=== PATIENT | male | born 1960 | race Caucasian/White ===

== ENCOUNTER 2021-06-29 11:03 | Outpatient (REF) | payer OTHER, SELFPAY ==
[2021-06-29 11:08] LABS: MANUAL DIFF FLAG NO
[2021-06-29 11:20] LABS: Basophils Absolute Auto 0.1 X10*3/uL (0.0-0.2); Basophils Percent Auto 0.9 % (0-2); Eosinophils Absolute Auto 0.2 X10*3/uL (0.0-0.4); Eosinophils Percent Auto 2.9 % (0-4); Hemoglobin 14.7 g/dl (14.0-18.0); Imm Gran Abs Auto 0.02 X10*3/uL (0.00-0.03); Imm Gran Pct Auto 0.3 % (0.0-0.4); Lymphocytes Absolute Auto 2.3 X10*3/uL (1.2-4.9); Mean Corpuscular HGB Conc 33.4 g/dl (31.0-36.0); Mean Corpuscular Hemoglobin 30.6 pg (27.0-33.0); Mean Corpuscular Volume 91.5 fL (80.0-98.0); Mean Platelet Volume 9.3 fL (9.4-12.4); Monocytes Absolute Auto 0.7 X10*3/uL (0.1-1.2); Monocytes Percent Auto 9.4 % (2-11); Neutrophils Absolute Auto 3.7 x10*3/uL (2.0-8.3); Neutrophils Percent Auto 53.5 % (45-73); Platelet Count 266 X10*3/uL (160-400); Red Blood Count 4.81 X10*6/uL (4.60-5.80); Red Cell Distribution Width 12.6 % (11.0-16.0); White Blood Count 6.9 X10*3/uL (4.8-10.8)
[2021-06-29 11:24] LABS: Appearance Urine HAZY; Color Urine YELLOW; Glucose Urine UA NEG (NEG); Leukocyte Esterase Urine NEG (NEG); Nitrite Urine NEG (NEG); Specific Gravity - Urine 1.025 (1.005-1.025); Urine Blood NEG (NEG); Urine Ketones NEG (NEG); Urine Protein NEG (NEG-TRACE)
[2021-06-29 11:44] LABS: Alanine Aminotransferase 14 U/L (0-40); Albumin Level 4.1 g/dL (3.5-5.0); Alkaline Phosphatase 68 U/L (39-117); Anion Gap 9 (12-20); Aspartate Amino Transferase 15 U/L (5-37); Bilirubin Total 0.9 mg/dL (0.0-1.0); Blood Urea Nitrogen 19 mg/dL (9-16); Calcium 9.2 mg/dL (8.4-10.2); Carbon Dioxide 31 mmol/L (22-29); Chloride 103 mmol/L (96-108); Cholesterol 248 mg/dL; Estimated Glomerular Filt Rate > 60; Glucose Fasting 98 mg/dL (60-99); HDL Cholesterol 55 mg/dL; LDL Cholesterol Calculated 175 mg/dl; Potassium 3.9 mmol/L (3.3-5.1); Sodium 139 mmol/L (135-145); Total Protein 6.8 g/dL (6.5-8.0); Triglycerides 91 mg/dL
[2021-06-29 11:59] LABS: PSA,Total (Free>4and<10) 2.94 ng/mL (0.00-4.00)
== END 2021-06-29 11:04 | disposition home or self-care (01) ==
LOC: HO.LNP 11:03
PROVIDERS: PCP Internal Medicine; Visit Provider Internal Medicine
DX: Z00.00 Encounter for general adult medical examination without abnormal findings (principal); Z12.5 Encounter for screening for malignant neoplasm of prostate
CPT/HCPCS: 80053; 80061; 81003; 84153; 85025

== ENCOUNTER 2021-12-25 11:03 | Outpatient (REF) | payer OTHER, SELFPAY ==
[2021-12-25 12:01] LABS: PSA,Total (Free>4and<10) 1.73 ng/mL (0.00-4.00)
== END 2021-12-25 11:04 | disposition home or self-care (01) ==
LOC: HO.LNP 11:03
PROVIDERS: Visit Provider Internal Medicine
DX: Z12.5 Encounter for screening for malignant neoplasm of prostate (principal); N40.0 Benign prostatic hyperplasia without lower urinary tract symptoms
CPT/HCPCS: 84153

== ENCOUNTER 2022-05-21 10:33 | Outpatient (REF) | payer OTHER, SELFPAY ==
[2022-05-21 10:38] LABS: MANUAL DIFF FLAG NO
[2022-05-21 10:46] LABS: Basophils Percent Auto 0.7 % (0-2); Eosinophils Absolute Auto 0.2 X10*3/uL (0.0-0.4); Eosinophils Percent Auto 3.7 % (0-4); Hematocrit 42.4 % (42.0-52.0); Hemoglobin 14.1 g/dl (14.0-18.0); Imm Gran Abs Auto 0.01 X10*3/uL (0.00-0.03); Imm Gran Pct Auto 0.2 % (0.0-0.4); Lymphocytes Absolute Auto 1.8 X10*3/uL (1.2-4.9); Lymphocytes Percent Auto 30.2 % (20-40); Mean Corpuscular HGB Conc 33.3 g/dl (31.0-36.0); Mean Corpuscular Hemoglobin 30.1 pg (27.0-33.0); Mean Corpuscular Volume 90.6 fL (80.0-98.0); Mean Platelet Volume 9.1 fL (9.4-12.4); Monocytes Absolute Auto 0.7 X10*3/uL (0.1-1.2); Monocytes Percent Auto 11.1 % (2-11); Neutrophils Absolute Auto 3.2 x10*3/uL (2.0-8.3); Neutrophils Percent Auto 54.1 % (45-73); Platelet Count 237 X10*3/uL (160-400); Red Blood Count 4.68 X10*6/uL (4.60-5.80); Red Cell Distribution Width 12.6 % (11.0-16.0)
[2022-05-21 10:51] LABS: Appearance Urine Clear; Color Urine Yellow; Glucose Urine UA Negative (Negative); Leukocyte Esterase Urine Trace (Negative); Nitrite Urine Negative (Negative); UMIC TRIGGER UA YES; Urine Blood Negative (Negative); Urine Ketones Negative (Negative); Urine Protein Negative (Neg-Trace)
[2022-05-21 10:56] LABS: Bacteria Urine None Seen (None Seen); Hyaline Casts Urine 0-2 /LPF (0-2); RBC Urine 0-2 /HPF (0-2); Squamous Epithelial Cell Urine 0-2 /HPF (0-2); WBC Urine 0-5 /HPF (0-5)
[2022-05-21 11:14] LABS: Alanine Aminotransferase 16 U/L (0-40); Albumin Level 4.2 g/dL (3.5-5.0); Alkaline Phosphatase 66 U/L (39-117); Anion Gap 10 (12-20); Aspartate Amino Transferase 19 U/L (5-37); Bilirubin Total 0.8 mg/dL (0.0-1.0); Blood Urea Nitrogen 14 mg/dL (9-16); Carbon Dioxide 28 mmol/L (22-29); Chloride 106 mmol/L (96-108); Cholesterol 244 mg/dL; Estimated Glomerular Filt Rate > 60; Glucose Fasting 83 mg/dL (60-99); HDL Cholesterol 62 mg/dL; LDL Cholesterol Calculated 170 mg/dl; Potassium 4.3 mmol/L (3.3-5.1); Sodium 140 mmol/L (135-145); Total Protein 6.8 g/dL (6.5-8.0); Triglycerides 63 mg/dL
[2022-05-21 15:22] LABS: PSA,Total (Free>4and<10) 2.59 ng/mL (0.00-4.00)
== END 2022-05-21 10:34 | disposition home or self-care (01) ==
LOC: HO.LNP 10:33
PROVIDERS: Visit Provider Internal Medicine
DX: Z00.00 Encounter for general adult medical examination without abnormal findings (principal); N40.0 Benign prostatic hyperplasia without lower urinary tract symptoms; E78.00 Pure hypercholesterolemia, unspecified; Z12.5 Encounter for screening for malignant neoplasm of prostate
CPT/HCPCS: 80053; 80061; 81001; 84153; 85025

== ENCOUNTER 2023-06-09 11:00 | Outpatient (REF) | payer OTHER, SELFPAY ==
[2023-06-09 11:02] LABS: MANUAL DIFF FLAG NO
[2023-06-09 11:21] LABS: Basophils Percent Auto 0.7 % (0-2); Eosinophils Absolute Auto 0.2 X10*3/uL (0.0-0.4); Eosinophils Percent Auto 3.9 % (0-4); Hematocrit 41.8 % (42.0-52.0); Hemoglobin 14.1 g/dl (14.0-18.0); Imm Gran Abs Auto 0.01 X10*3/uL (0.00-0.03); Imm Gran Pct Auto 0.2 % (0.0-0.4); Lymphocytes Absolute Auto 1.7 X10*3/uL (1.2-4.9); Lymphocytes Percent Auto 29.2 % (20-40); Mean Corpuscular HGB Conc 33.7 g/dl (31.0-36.0); Mean Corpuscular Hemoglobin 30.1 pg (27.0-33.0); Mean Corpuscular Volume 89.3 fL (80.0-98.0); Monocytes Absolute Auto 0.7 X10*3/uL (0.1-1.2); Monocytes Percent Auto 11.8 % (2-11); Neutrophils Absolute Auto 3.2 x10*3/uL (2.0-8.3); Neutrophils Percent Auto 54.2 % (45-73); Platelet Count 266 X10*3/uL (160-400); Red Blood Count 4.68 X10*6/uL (4.60-5.80); Red Cell Distribution Width 12.6 % (11.0-16.0); White Blood Count 5.9 X10*3/uL (4.8-10.8)
[2023-06-09 11:22] LABS: Appearance Urine Clear; Color Urine Yellow; Glucose Urine UA Negative (Negative); Leukocyte Esterase Urine Negative (Negative); Nitrite Urine Negative (Negative); Urine Blood Negative (Negative); Urine Ketones Negative (Negative); Urine Protein Negative (Neg-Trace)
[2023-06-09 11:27] LABS: Bacteria Urine None Seen (None Seen); Hyaline Casts Urine 0-2 /LPF (0-2); RBC Urine 0-2 /HPF (0-2); Squamous Epithelial Cell Urine 0-2 /HPF (0-2); WBC Urine 0-5 /HPF (0-5)
[2023-06-09 11:37] LABS: Alanine Aminotransferase 15 U/L (0-40); Albumin Level 4.1 g/dL (3.5-5.0); Alkaline Phosphatase 74 U/L (39-117); Anion Gap 11 (12-20); Aspartate Amino Transferase 18 U/L (5-37); Bilirubin Total 0.8 mg/dL (0.0-1.0); Blood Urea Nitrogen 13 mg/dL (9-16); Calcium 9.6 mg/dL (8.4-10.2); Carbon Dioxide 30 mmol/L (22-29); Chloride 104 mmol/L (96-108); Cholesterol 248 mg/dL (<200); Estimated Glomerular Filt Rate > 60; Glucose Random 90 mg/dL (60-115); HDL Cholesterol 57 mg/dL (>40); LDL Cholesterol Calculated 175 mg/dL (<100); Potassium 3.9 mmol/L (3.3-5.1); Sodium 141 mmol/L (135-145); Total Protein 7.1 g/dL (6.5-8.0); Triglycerides 82 mg/dL (<150)
[2023-06-09 11:54] LABS: PSA,Total (Free>4and<10) 2.33 ng/mL (0.00-4.00)
== END 2023-06-09 11:01 | disposition home or self-care (01) ==
LOC: HO.LNP 11:00
PROVIDERS: Visit Provider Internal Medicine
DX: Z00.00 Encounter for general adult medical examination without abnormal findings (principal); Z12.5 Encounter for screening for malignant neoplasm of prostate; N40.0 Benign prostatic hyperplasia without lower urinary tract symptoms; E78.00 Pure hypercholesterolemia, unspecified
CPT/HCPCS: 80053; 80061; 81001; 84153; 85025

== ENCOUNTER 2023-09-15 11:57 | Outpatient (REF) | payer OTHER, SELFPAY ==
[2023-09-15 12:29] LABS: Alanine Aminotransferase 13 U/L (0-40); Albumin Level 3.8 g/dL (3.5-5.0); Alkaline Phosphatase 76 U/L (39-117); Aspartate Amino Transferase 15 U/L (5-37); Bilirubin Direct 0.2 mg/dL (0.0-0.5); Bilirubin Total 0.5 mg/dL (0.0-1.0); Cholesterol 154 mg/dL (<200); HDL Cholesterol 42 mg/dL (>40); LDL Cholesterol Calculated 100 mg/dL (<100); Total Protein 7.1 g/dL (6.5-8.0); Triglycerides 62 mg/dL (<150)
== END 2023-09-15 11:58 | disposition home or self-care (01) ==
LOC: HO.LNP 11:57
PROVIDERS: Visit Provider Internal Medicine
DX: E78.00 Pure hypercholesterolemia, unspecified (principal)
CPT/HCPCS: 80061; 80076

== ENCOUNTER 2023-09-21 11:43 | Outpatient (AMB) | payer OTHER, SELFPAY ==
--- NOTE | 2023-09-21 11:41 | MHC.OFFWIV ---
Intake Vital Signs 09/21/23 11:47 Height 6 ft 2 in Weight 214 lb BMI 27.5 BP 140/70 H Blood Pressure Location Lt brachial Position Sitting Pulse 86 Pulse Source Pulse Oximeter Temp 97.9 F Temp Source Temporal Artery Scan Pulse Oximetry (%) 96 Oxygen Delivery Method Room Air Intake Visit Reasons: EP tick bite Intake Note: pt is here today for tick bite started 07/26 Patient Tobacco Use Status: Never used Tobacco Allergies No Known Allergies Allergy (Verified 09/21/23 11:50) Medication List - Last Reconciled 09/21/23 by Magda Jackson MD atorvastatin 20 mg PO DAILY Do you need a note to return to daycare/school/sports/work: Yes HPI EP tick bite HPI Details Patient is a 63-year-old gentleman who is very active goes for hiking and biking Found a tick on his body 3.5 week ago, right side in the back, patient was able to remove it Ten days ago he started having swelling and aching in his left knee which usually have achy feeling because of osteoarthritis Then pain migrated to right ankle and then left hand Patient got concerned for Lyme disease so came in Currently he is having discomfort left hand small joints I have ordered Lyme test metabolic profile and CBC with the patient I have also sent doxycycline 100 mg b.i.d. for 10 days Further treatment after the reports [facility] Social History Patient Tobacco Use Status: Never used Tobacco Review of Systems Const Denies chills and Denies fever(s) ENT Denies epistaxis and Denies nasal discharge Card Denies chest pain Resp Denies chest congestion, Denies cough and Denies hemoptysis GI Denies diarrhea and Denies nausea Skin/Breast Denies rash Neuro Reports no additional complaints Psych Reports no additional complaints Endo Reports no additional complaints Physical Exam Vital Signs: Last Vital Signs Temp 97.9 F 09/21/23 11:47 Pulse 86 09/21/23 11:47 BP 140/70 H 09/21/23 11:47 Pulse Ox 96 09/21/23 11:47 Oxygen Delivery Method Room Air 09/21/23 11:47 BMI result Body Mass Index 27.5 Const General: cooperative, comfortable and no acute distress Orientation/consciousness: patient oriented x3 HEENT Head: Yes normocephalic Eyes General: appearance normal, both eyes and all related structures Neck Other: Supple Neck: Yes supple Resp Effort & Inspection: normal respiratory effort, no cough and no stridor Cardio Heart sounds: S1 normal heart sound present and S2 normal heart sound present Skin General skin exam: turgor normal Neuro Other: Motor sensory intact General: patient oriented x3, tone normal and moves all extremities Extrem Other: Left knee swollen compared to right knee, mild swelling left wrist area, range of motion slightly limited because of soreness Psych Other: Normal effect, speech clear Assessment & Plan Assessment & Plan (1) Tick bite: Code(s): W57.XXXA - Bitten or stung by nonvenomous insect and other nonvenomous arthropods, initial encounter Qualifiers: Encounter type: initial encounter Site of tick bite: abdominal wall Qualified Code(s): S30.861A - Insect bite (nonvenomous) of abdominal wall, initial encounter; W57.XXXA - Bitten or stung by nonvenomous insect and other nonvenomous arthropods, initial encounter (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 - Other specified arthritis, unspecified site (3) Swelling of knee joint, left: Code(s): M25.462 - Effusion, left knee (4) Hand pain, left: Code(s): M79.642 - Pain in left hand Plan Patient is a 63-year-old gentleman who is very active goes for hiking and biking Found a tick on his body 3.5 week ago, right side in the back, patient was able to remove it Ten days ago he started having swelling and aching in his left knee which usually have achy feeling because of osteoarthritis Then pain migrated to right ankle and then left hand Patient got concerned for Lyme disease so came in Currently he is having discomfort left hand small joints I have ordered Lyme test metabolic profile and CBC with the patient I have also sent doxycycline 100 mg b.i.d. for 10 days Further treatment after the reports Orders: Orders Complete Blood Count Auto Diff Today W57.XXXA - Bitten or stung by nonvenomous insect and other nonvenomous arthropods, initial encounter Comprehensive Met. 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
[2023-09-21 11:47] VITALS: BP 140/70; PULSE 86; TEMP 36.6; O2SAT 96; BMI 27.5
== END 2023-09-21 12:17 | disposition home or self-care (01) ==
PROVIDERS: PCP Internal Medicine; Visit Provider Internal Medicine
DX: S30.861A Insect bite (nonvenomous) of abdominal wall, initial encounter (principal); W57.XXXA Bitten or stung by nonvenomous insect and other nonvenomous arthropods, initial encounter; M13.80 Other specified arthritis, unspecified site; M25.462 Effusion, left knee; M79.642 Pain in left hand
CPT/HCPCS: 99214

== ENCOUNTER 2023-09-21 11:58 | Outpatient (REF) | payer OTHER, SELFPAY ==
[2023-09-21 13:03] LABS: MANUAL DIFF FLAG NO
[2023-09-21 13:08] LABS: Basophils Percent Auto 0.4 % (0-2); Eosinophils Absolute Auto 0.2 X10*3/uL (0.0-0.4); Eosinophils Percent Auto 1.6 % (0-4); Hematocrit 34.4 % (42.0-52.0); Hemoglobin 11.6 g/dl (14.0-18.0); Imm Gran Abs Auto 0.04 X10*3/uL (0.00-0.03); Imm Gran Pct Auto 0.4 % (0.0-0.4); Lymphocytes Absolute Auto 0.8 X10*3/uL (1.2-4.9); Lymphocytes Percent Auto 7.7 % (20-40); Mean Corpuscular HGB Conc 33.7 g/dl (31.0-36.0); Mean Corpuscular Hemoglobin 29.8 pg (27.0-33.0); Mean Corpuscular Volume 88.4 fL (80.0-98.0); Mean Platelet Volume 8.8 fL (9.4-12.4); Monocytes Absolute Auto 0.9 X10*3/uL (0.1-1.2); Monocytes Percent Auto 7.8 % (2-11); Neutrophils Percent Auto 82.1 % (45-73); Platelet Count 356 X10*3/uL (160-400); Red Blood Count 3.89 X10*6/uL (4.60-5.80); Red Cell Distribution Width 11.9 % (11.0-16.0)
[2023-09-21 13:22] LABS: Alanine Aminotransferase 28 U/L (0-40); Albumin Level 3.5 g/dL (3.5-5.0); Alkaline Phosphatase 90 U/L (39-117); Anion Gap 14 (12-20); Aspartate Amino Transferase 29 U/L (5-37); Bilirubin Total 0.7 mg/dL (0.0-1.0); Blood Urea Nitrogen 12 mg/dL (9-16); Calcium 9.1 mg/dL (8.4-10.2); Carbon Dioxide 23 mmol/L (22-29); Chloride 103 mmol/L (96-108); Estimated Glomerular Filt Rate > 60; Glucose Random 161 mg/dL (60-115); Potassium 3.6 mmol/L (3.3-5.1); Sodium 136 mmol/L (135-145); Total Protein 7.1 g/dL (6.5-8.0)
[2023-09-22 10:18] LABS: Lyme Abs Screen <0.90 index
== END 2023-09-21 11:59 | disposition home or self-care (01) ==
LOC: HO.HMGCLDS 11:58
PROVIDERS: PCP Internal Medicine; Visit Provider Internal Medicine
DX: T14.8XXA Other injury of unspecified body region, initial encounter (principal); W57.XXXA Bitten or stung by nonvenomous insect and other nonvenomous arthropods, initial encounter
CPT/HCPCS: 36415; 80053; 85025; 86617; 86618

== ENCOUNTER 2023-09-23 10:55 | Outpatient (REF) | payer OTHER, SELFPAY ==
[2023-09-23 11:02] LABS: MANUAL DIFF FLAG NO
[2023-09-23 11:11] LABS: Basophils Absolute Auto 0.1 X10*3/uL (0.0-0.2); Basophils Percent Auto 0.8 % (0-2); Eosinophils Absolute Auto 0.4 X10*3/uL (0.0-0.4); Eosinophils Percent Auto 3.8 % (0-4); Hematocrit 35.7 % (42.0-52.0); Hemoglobin 11.7 g/dl (14.0-18.0); Imm Gran Abs Auto 0.03 X10*3/uL (0.00-0.03); Imm Gran Pct Auto 0.3 % (0.0-0.4); Lymphocytes Absolute Auto 1.6 X10*3/uL (1.2-4.9); Lymphocytes Percent Auto 16.9 % (20-40); Mean Corpuscular HGB Conc 32.8 g/dl (31.0-36.0); Mean Corpuscular Hemoglobin 29.5 pg (27.0-33.0); Mean Corpuscular Volume 90.2 fL (80.0-98.0); Mean Platelet Volume 8.7 fL (9.4-12.4); Monocytes Absolute Auto 0.9 X10*3/uL (0.1-1.2); Monocytes Percent Auto 9.7 % (2-11); Neutrophils Absolute Auto 6.3 x10*3/uL (2.0-8.3); Neutrophils Percent Auto 68.5 % (45-73); Platelet Count 378 X10*3/uL (160-400); Red Blood Count 3.96 X10*6/uL (4.60-5.80); Red Cell Distribution Width 11.9 % (11.0-16.0); White Blood Count 9.2 X10*3/uL (4.8-10.8)
[2023-09-26 12:08] LABS: A. Phagocytphilium DNA,RT-PCR NOT DETECTED (NOT DETECTED); Babesia Microti DNA, RT-PCR NOT DETECTED (NOT DETECTED); Borrelia Miyamotoi,DNA RT-PCR NOT DETECTED (NOT DETECTED); E.Chaffeensis DNA RT-PCR NOT DETECTED (NOT DETECTED); Lyme(Borrelia ssp)DNA RT-PCR NOT DETECTED (NOT DETECTED)
== END 2023-09-23 10:56 | disposition home or self-care (01) ==
LOC: HO.LNP 10:55
PROVIDERS: Visit Provider Internal Medicine
DX: A69.20 Lyme disease, unspecified (principal)
CPT/HCPCS: 85025; 87468; 87469; 87478; 87484; 87798

== ENCOUNTER 2023-09-29 11:30 | Outpatient (REF) | payer OTHER, SELFPAY ==
[2023-09-29 11:33] LABS: MANUAL DIFF FLAG NO
[2023-09-29 12:28] LABS: Basophils Absolute Auto 0.1 X10*3/uL (0.0-0.2); Basophils Percent Auto 0.8 % (0-2); Eosinophils Absolute Auto 0.3 X10*3/uL (0.0-0.4); Eosinophils Percent Auto 3.7 % (0-4); Hemoglobin 11.3 g/dl (14.0-18.0); Imm Gran Abs Auto 0.04 X10*3/uL (0.00-0.03); Imm Gran Pct Auto 0.5 % (0.0-0.4); Lymphocytes Absolute Auto 1.6 X10*3/uL (1.2-4.9); Lymphocytes Percent Auto 20.7 % (20-40); Mean Corpuscular HGB Conc 33.2 g/dl (31.0-36.0); Mean Corpuscular Hemoglobin 29.7 pg (27.0-33.0); Mean Corpuscular Volume 89.2 fL (80.0-98.0); Mean Platelet Volume 8.8 fL (9.4-12.4); Monocytes Absolute Auto 0.6 X10*3/uL (0.1-1.2); Monocytes Percent Auto 8.2 % (2-11); Neutrophils Percent Auto 66.1 % (45-73); Platelet Count 337 X10*3/uL (160-400); Red Blood Count 3.81 X10*6/uL (4.60-5.80); Red Cell Distribution Width 12.1 % (11.0-16.0); White Blood Count 7.6 X10*3/uL (4.8-10.8)
[2023-09-29 12:42] LABS: Rheumatoid Factor < 13.0 IU/mL (<15.0)
[2023-09-29 13:12] LABS: Erythrocyte Sedimentation Rate 45 MM/HR (0-15)
[2023-10-01 15:49] LABS: A. Phagocytphilium DNA,RT-PCR NOT DETECTED (NOT DETECTED); Babesia Microti DNA, RT-PCR NOT DETECTED (NOT DETECTED); Borrelia Miyamotoi,DNA RT-PCR NOT DETECTED (NOT DETECTED); E.Chaffeensis DNA RT-PCR NOT DETECTED (NOT DETECTED); Lyme(Borrelia ssp)DNA RT-PCR NOT DETECTED (NOT DETECTED)
== END 2023-09-29 11:31 | disposition home or self-care (01) ==
LOC: HO.LNP 11:30
PROVIDERS: Visit Provider Internal Medicine
DX: A69.20 Lyme disease, unspecified (principal); M19.149 Post-traumatic osteoarthritis, unspecified hand
CPT/HCPCS: 85025; 85652; 86431; 87468; 87469; 87478; 87484; 87798

== ENCOUNTER 2023-10-10 10:51 | Outpatient (REF) | payer OTHER, SELFPAY ==
[2023-10-10 12:12] LABS: MANUAL DIFF FLAG NO
[2023-10-10 13:39] LABS: Basophils Absolute Auto 0.1 X10*3/uL (0.0-0.2); Eosinophils Absolute Auto 0.2 X10*3/uL (0.0-0.4); Eosinophils Percent Auto 3.6 % (0-4); Hematocrit 36.6 % (42.0-52.0); Hemoglobin 11.8 g/dl (14.0-18.0); Imm Gran Abs Auto 0.03 X10*3/uL (0.00-0.03); Imm Gran Pct Auto 0.4 % (0.0-0.4); Lymphocytes Absolute Auto 1.2 X10*3/uL (1.2-4.9); Mean Corpuscular HGB Conc 32.2 g/dl (31.0-36.0); Mean Corpuscular Volume 89.9 fL (80.0-98.0); Mean Platelet Volume 8.8 fL (9.4-12.4); Monocytes Absolute Auto 0.6 X10*3/uL (0.1-1.2); Monocytes Percent Auto 9.4 % (2-11); Neutrophils Absolute Auto 4.6 x10*3/uL (2.0-8.3); Neutrophils Percent Auto 67.6 % (45-73); Platelet Count 362 X10*3/uL (160-400); Red Blood Count 4.07 X10*6/uL (4.60-5.80); Red Cell Distribution Width 12.5 % (11.0-16.0); White Blood Count 6.7 X10*3/uL (4.8-10.8)
[2023-10-10 13:39] LABS: Appearance Urine Clear; Color Urine Dark Yellow; Glucose Urine UA Negative (Negative); Leukocyte Esterase Urine Trace (Negative); Nitrite Urine Negative (Negative); PH 5.5 (5.0-9.0); Specific Gravity - Urine 1.025 (1.005-1.025); UMIC TRIGGER UA YES; Urine Blood Moderate (2+) (Negative); Urine Ketones Trace mg/dL (Negative); Urine Protein Trace mg/dL (Neg-Trace)
[2023-10-10 13:49] LABS: Bacteria Urine None Seen (None Seen); Hyaline Casts Urine 0-2 /LPF (0-2); Squamous Epithelial Cell Urine 0-2 /HPF (0-2); WBC Urine 0-5 /HPF (0-5)
[2023-10-10 14:18] LABS: Erythrocyte Sedimentation Rate 40 MM/HR (0-15)
[2023-10-10 14:29] LABS: Alanine Aminotransferase 9 U/L (0-40); Albumin Level 3.7 g/dL (3.5-5.0); Alkaline Phosphatase 73 U/L (39-117); Anion Gap 16 (12-20); Aspartate Amino Transferase 12 U/L (5-37); Bilirubin Total 0.5 mg/dL (0.0-1.0); Blood Urea Nitrogen 17 mg/dL (9-16); Carbon Dioxide 25 mmol/L (22-29); Chloride 105 mmol/L (96-108); Estimated Glomerular Filt Rate > 60; Glucose Random 78 mg/dL (60-115); Potassium 4.2 mmol/L (3.3-5.1); Sodium 142 mmol/L (135-145); Total Protein 7.1 g/dL (6.5-8.0)
[2023-10-10 14:35] LABS: Creatinine Urine 226.81 mg/dL; Protein/Creatinine Ratio, Ur 0.12 (<0.2); Total Protein Urine Random 27 mg/dL (<12)
[2023-10-11 09:41] LABS: HBS Num1 0.69 mIU/mL (0-7.99); HBc Num1 0.24 S/CO (0.00-0.79); HBsAGNum1 0.21 S/CO (0.00-0.99); Hepatitis A Antibody IgM 0.18 Index (0-0.79); Hepatitis B Core Antibody Nonreactive (Nonreactive); Hepatitis B Surface Antigen Negative (Negative); ~HepC Num1 0.22 S/CO (0.00-0.79); ~Hepatitis A Antibody IgM Nonreactive (Nonreactive); ~Hepatitis B Surface Antibody NONREACTIVE (Nonreactive); ~Hepatitis C Antibody Nonreactive (Nonreactive)
[2023-10-11 19:09] LABS: Anti DNA DS Antibody <1 IU/mL; Antibody to SS-A Antigen <1.0 NEG AI (<1.0 NEG); Antibody to SS-B Antigen <1.0 NEG AI (<1.0 NEG); SM/Ribonucleoprotein Ab <1.0 NEG AI (<1.0 NEG); Smith Protein <1.0 NEG AI (<1.0 NEG)
[2023-10-12 08:54] LABS: Complement C3 135 mg/dL (82-185)
[2023-10-12 18:13] LABS: Cyclic Citrullinated Peptide <16 UNITS
[2023-10-12 18:14] LABS: IgA 301 mg/dL (70-320); IgG 1345 mg/dL (600-1540); IgM 119 mg/dL (50-300)
[2023-10-12 21:13] LABS: Prot Elec - Albumin 3.6 g/dL (3.8-4.8); Prot Elec - Alpha1 0.5 g/dL (0.2-0.3); Prot Elec - Alpha2 0.8 g/dL (0.5-0.9); Prot Elec - Beta 1 0.4 g/dL (0.4-0.6); Prot Elec - Beta 2 0.4 g/dL (0.2-0.5); Prot Elec - Gamma 1.2 g/dL (0.8-1.7); Prot Elec - Total Protein 6.9 g/dL (6.1-8.1)
[2023-10-13 08:04] LABS: TS Negative Control Passed; TS Panel A 0; TS Panel B 0; TS Positive Control Passed; TSpotTB Negative (Negative)
[2023-10-13 14:03] LABS: HLA B27 Negative (Negative)
[2023-10-13 16:08] LABS: Anti Nuclear Antibody Screen NEGATIVE (NEGATIVE)
[2023-10-16 11:24] LABS: DNAds, Crithidia Antibody Negative (Negative)
[2023-10-18 22:24] LABS: Angiotensin Converting Enzyme 22 U/L (9-67)
[2023-10-19 14:44] LABS: HLA B51 Comments See Comments; HLA B51 Method PCR SSOP
== END 2023-10-10 10:52 | disposition home or self-care (01) ==
LOC: HO.LAB 10:51
PROVIDERS: PCP Internal Medicine; Visit Provider Student in an Organized Health Care Education/Training Program
DX: Z11.59 Encounter for screening for other viral diseases (principal); Z11.7 Encounter for testing for latent tuberculosis infection; M32.9 Systemic lupus erythematosus, unspecified; M45.9 Ankylosing spondylitis of unspecified sites in spine; M35.2 Behcet's disease; D86.9 Sarcoidosis, unspecified; M13.80 Other specified arthritis, unspecified site; Z72.89 Other problems related to lifestyle
CPT/HCPCS: 36415; 80053; 81001; 81374; 82164; 82570; 82784; 84156; 84165; 85025; 85652; 86038; 86140; 86160; 86200; 86225; 86235; 86255; 86334; 86481; 86704; 86706; 86709; 86803; 86812; 87340

== ENCOUNTER 2023-10-10 10:51 | Outpatient (AMB) | payer OTHER, SELFPAY ==
[2023-10-10 10:56] VITALS: BP 130/64; PULSE 61; O2SAT 97; BMI 26.7
--- NOTE | 2023-10-10 10:56 | A.OFFVIS_ITS ---
Vital Signs 10/10/23 10:56 Height 6 ft 2 in Weight 207 lb 14.334 oz BMI 26.7 BP 130/64 Blood Pressure Location Rt brachial Position Sitting Pulse 61 Pulse Source Pulse Oximeter Pulse Oximetry (%) 97 Oxygen Delivery Method Room Air Intake Visit Reasons: Hand Arthritis Intake Note: New patient presents today for consult. Patient was bit by a tick July 26, 2 wks later developed joint pain and swelling in knee. Tray Line Supervisor Required: No Accompanied by: Self / Same As Patient Allergies No Known Allergies Allergy (Verified 10/10/23 10:57) Medication List - Last Reconciled 10/10/23 by Traci Dangelo MD atorvastatin 20 mg PO DAILY doxycycline hyclate 100 mg PO BID ibuprofen 800 mg PO TID HPI Comments Details: This is a 63-year-old male who presents for evaluation of diffuse joint pain. July 26 patient pulled a tick from the right side of his lower back while at work. He does not recall any skin rashes associated with it 2 weeks later he started having migratory joint pain including right ankle, right foot, left knee was swollen and associated with loss of range of motion as well as bilateral shoulder stiffness and inability to raise it above his head. Bilateral hand pain and stiffness. He takes ibuprofen 2 to 3 times a day as needed worries joint pains. He is doing well. Without any joint pain or stiffness. Has been doing well over the weekend. He denies any skin rashes. Denies any weight loss or fevers. Denies any recent history of infections. Has a cousin who from juvenile rheumatoid arthritis. Otherwise he is unaware of any family history of an autoimmune rheumatic disease. Denies any history of uveitis or colitis. [facility] Medical History Hypercholesteremia Hand arthritis Surgical History History of hip replacement Family History Father History of alcohol abuse Mother No problems noted. 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 Review of Systems Const Denies fever(s) Eyes Reports no additional complaints Musc Reports arthralgias, Reports joint swelling, Reports limited range of motion and Reports stiffness Physical Exam Vital Signs: Last Vital Signs Pulse 61 10/10/23 10:56 BP 130/64 10/10/23 10:56 Pulse Ox 97 10/10/23 10:56 Oxygen Delivery Method Room Air 10/10/23 10:56 BMI result Body Mass Index 26.7 Const General: cooperative, healthy appearing and comfortable Nutritional Appearance: overweight Orientation/consciousness: patient oriented x3 Limitations: no limitations HEENT Head: Yes normocephalic and Yes atraumatic Mouth: moist mucous membranes Resp Effort & Inspection: normal respiratory effort and able to speak in complete sentences Auscultation: clear to auscultation bilaterally Cardio Rate: regular rate Rhythm: regular rhythm Skin General skin exam: no rashes or lesions noted Neuro General: patient oriented x3 Extrem Other: Osteoarthritic changes of both hands No active synovitis. 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 This was 2 weeks after pulled a tick from his back it is Lyme screening is negative. Labs showed elevated ESR with negative rheumatoid factor. Clinical picture suspicious of inflammatory arthritis. Patient has been on doxycycline treatment for approximately 19 days. Advised patient to complete the 3 week course. Will check comprehensive serology to screen for underlying autoimmune rheumatic disease. Follow-up in 6 weeks. Advised patient to take pictures of any swollen joints. Call the office if he develops recurrent joint pain and swelling Plan I spent 48 minutes reviewing patient's chart, evaluating patient, ordering diagnostic workup, counseling patient and documenting in the chart Orders: Orders Comprehensive Met. Panel Today M32.9 - Systemic lupus erythematosus, unspecified C Reactive Protein Today M32.9 - Systemic lupus erythematosus, unspecified Hepatitis A,B,C Profile Today Z11.59 - Encounter for screening for other viral diseases Protein Electrophoresis, Serum Today M32.9 - Systemic lupus erythematosus, unspecified Anti DNA DS Antibody Today M32.9 - Systemic lupus erythematosus, unspecified Complement C3 Today M32.9 - Systemic lupus erythematosus, unspecified Protein Creatinine Ratio, Ur Today M32.9 - Systemic lupus erythematosus, unspecified Cyclic Citrullinated Peptide Today M13.80 - Other specified arthritis, unspecified site HLA B27 Today M45.9 - Ankylosing spondylitis of unspecified sites in spine HLA B51 Behcet's Disease Today M35.2 - Behcet's disease Angiotensin Converting Enzyme Today D86.9 - Sarcoidosis, unspecified Complete Blood Count Auto Diff Today M32.9 - Systemic lupus erythematosus, unspecified Erythrocyte Sedimentation Rate Today M32.9 - Systemic lupus erythematosus, unspecified Immunofixation Pnl, Serum Today M32.9 - Systemic lupus erythematosus, unspecified T Spot TB Today Z11.7 - Encounter for testing for latent tuberculosis infection SOLOMON Reflex Titer and Pattern Today M32.9 - Systemic lupus erythematosus, unspecified Anti Extractable Nuclear Ag Today M32.9 - Systemic lupus erythematosus, unspecified Complement C4 Today M32.9 - Systemic lupus erythematosus, unspecified DNA Double Stranded-Crithidia Today M32.9 - Systemic lupus erythematosus, unspecified Sjogren's Antibodies Today M32.9 - Systemic lupus erythematosus, unspecified UA w Microscopic Today M32.9 - Systemic lupus erythematosus, unspecified Coding Level of Care Code New Pt Level 4 (46534) Diagnoses Migratory polyarthritis M13.80
== END 2023-10-10 11:42 | disposition home or self-care (01) ==
PROVIDERS: PCP Internal Medicine; Visit Provider Student in an Organized Health Care Education/Training Program
DX: M13.80 Other specified arthritis, unspecified site (principal)
CPT/HCPCS: 99204

== ENCOUNTER 2023-10-18 10:40 | Outpatient (REF) | payer OTHER, SELFPAY ==
[2023-10-18 10:57] LABS: Appearance Urine Clear; Color Urine Dark Yellow; Glucose Urine UA Negative (Negative); Leukocyte Esterase Urine Small (1+) (Negative); Nitrite Urine Negative (Negative); PH 5.5 (5.0-9.0); Specific Gravity - Urine 1.025 (1.005-1.025); UMIC TRIGGER UA YES; Urine Blood Moderate (2+) (Negative); Urine Ketones Negative (Negative); Urine Protein Trace mg/dL (Neg-Trace)
[2023-10-18 11:11] LABS: Bacteria Urine None Seen (None Seen); Hyaline Casts Urine 0-2 /LPF (0-2); RBC Urine 0-2 /HPF (0-2); Squamous Epithelial Cell Urine 0-2 /HPF (0-2); WBC Urine 0-5 /HPF (0-5)
== END 2023-10-18 10:41 | disposition home or self-care (01) ==
LOC: HO.LNP 10:40
PROVIDERS: Visit Provider Internal Medicine
DX: R31.29 Other microscopic hematuria (principal)
CPT/HCPCS: 81001

== ENCOUNTER 2023-11-07 10:28 | Outpatient (REF) | payer OTHER, SELFPAY ==
[2023-11-07 11:15] LABS: Appearance Urine Clear; Color Urine Yellow; Glucose Urine UA Negative (Negative); Leukocyte Esterase Urine Trace (Negative); Nitrite Urine Negative (Negative); PH 5.5 (5.0-9.0); UMIC TRIGGER UACC YES; Urine Blood Moderate (2+) (Negative); Urine Ketones Negative (Negative); Urine Protein Negative (Neg-Trace)
[2023-11-07 11:45] LABS: Bacteria Urine None Seen (None Seen); Hyaline Casts Urine 0-2 /LPF (0-2); Squamous Epithelial Cell Urine 0-2 /HPF (0-2); WBC Urine 0-5 /HPF (0-5)
== END 2023-11-07 10:29 | disposition home or self-care (01) ==
LOC: HO.LNP 10:28
PROVIDERS: Visit Provider Internal Medicine
DX: R31.9 Hematuria, unspecified (principal)
CPT/HCPCS: 81001; 81003

== ENCOUNTER 2023-11-10 09:34 | Outpatient (AMB) | payer OTHER, SELFPAY ==
[2023-11-10 09:39] VITALS: BP 110/54; PULSE 74; O2SAT 96; BMI 26.3
--- NOTE | 2023-11-10 09:39 | MHC.OFFVIS ---
Vital Signs 11/10/23 09:39 Height 6 ft 2 in Weight 205 lb 4.006 oz BMI 26.3 BP 110/54 L Blood Pressure Location Rt brachial Position Sitting Pulse 74 Pulse Source Pulse Oximeter Pulse Oximetry (%) 96 Oxygen Delivery Method Room Air Intake Visit Reasons: RA Allergies No Known Allergies Allergy (Verified 11/10/23 09:41) Medication List - Last Reconciled 11/10/23 by Traci Dangelo MD atorvastatin 20 mg PO DAILY ibuprofen 800 mg PO TID HPI Comments Details: Patient presents to clinic for urgent visit to abrupt onset of left hip pain that started overnight. Patient stated that since his previous visit he has been having intermittent migratory joint pains however he started having significant left hip pain overnight, the pain is in his buttock and radiates towards his left thigh. He is using a cane. No other joint pain or swelling today. He has lost about 10 lb of weight over the last 2 months Initial history: This is a 63-year-old male who presents for evaluation of diffuse joint pain. July 26 patient pulled a tick from the right side of his lower back while at work. He does not recall any skin rashes associated with it 2 weeks later he started having migratory joint pain including right ankle, right foot, left knee was swollen and associated with loss of range of motion as well as bilateral shoulder stiffness and inability to raise it above his head. Bilateral hand pain and stiffness. He takes ibuprofen 2 to 3 times a day as needed worries joint pains. He is doing well. Without any joint pain or stiffness. Has been doing well over the weekend. He denies any skin rashes. Denies any weight loss or fevers. Denies any recent history of infections. Has a cousin who from juvenile rheumatoid arthritis. Otherwise he is unaware of any family history of an autoimmune rheumatic disease. Denies any history of uveitis or colitis. [facility] Medical History Colon polyps Hypercholesteremia Hand arthritis Surgical History Hx of inguinal herniorrhaphy H/O colonoscopy History of hip replacement Family History Father History of alcohol abuse Mother No problems noted. 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 Review of Systems Const Denies fever(s) and Reports weight loss Eyes Reports no additional complaints Musc Reports arthralgias, Reports joint swelling, Reports limited range of motion and Reports stiffness Physical Exam Vital Signs: Last Vital Signs Pulse 74 11/10/23 09:39 BP 110/54 L 11/10/23 09:39 Pulse Ox 96 11/10/23 09:39 Oxygen Delivery Method Room Air 11/10/23 09:39 BMI result Body Mass Index 26.3 Const General: cooperative, healthy appearing and comfortable Nutritional Appearance: overweight Orientation/consciousness: patient oriented x3 Limitations: ambulation with cane HEENT Head: Yes normocephalic and Yes atraumatic Mouth: moist mucous membranes Resp Effort & Inspection: normal respiratory effort and able to speak in complete sentences Auscultation: clear to auscultation bilaterally Cardio Rate: regular rate Rhythm: regular rhythm Skin General skin exam: no rashes or lesions noted Neuro General: patient oriented x3 Extrem Other: Osteoarthritic changes of both hands No active synovitis. Of upper extremities Normal nailfold capillaroscopy Antalgic gait. 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 This was 2 weeks after pulled a tick from his back, his Lyme screening is negative. He completed doxycycline course for 21 days. His labs show significantly elevated inflammatory markers with negative serologies including SOLOMON/RF/CCP/HLA B27. Today patient presents with at onset of left hip pain. I believe it is the hip joint. clinical picture consistent with new onset inflammatory arthritis. Start prednisone taper. Advised patient not to combine prednisone with ibuprofen. Labs before next visit in 4 weeks. X-rays to be ordered that visit (2) Hematuria: Code(s): R31.9 - Hematuria, unspecified Category: Medical Qualifiers: Hematuria type: asymptomatic microscopic Qualified Code(s): R31.21 - Asymptomatic microscopic hematuria Plan: Urinalysis showed hematuria on 2 occasions. He was referred to urologist by his PCP which I agree with Plan I spent 28 minutes reviewing patient's chart, evaluating patient, ordering diagnostic workup, counseling patient and documenting in the chart Orders: Orders Complete Blood Count Auto Diff 4 Weeks M13.80 - Other specified arthritis, unspecified site C Reactive Protein 4 Weeks M13.80 - Other specified arthritis, unspecified site Comprehensive Met. Panel 4 Weeks M13.80 - Other specified arthritis, unspecified site Erythrocyte Sedimentation Rate 4 Weeks M13.80 - Other specified arthritis, unspecified site Medications: New prednisone Take 3 tabs daily for 1 week, 2 tabs daily for 1 week, 1 tab daily for 2 weeks then stop 70 tabs 0RF Coding Level of Care Code Est Pt Level 4 (98150) Diagnoses Migratory polyarthritis M13.80 Asymptomatic microscopic hematuria R31.21 Hematuria type: asymptomatic microscopic
== END 2023-11-10 10:11 | disposition home or self-care (01) ==
LOC: HO.RHE 09:34
PROVIDERS: PCP Internal Medicine; Visit Provider Student in an Organized Health Care Education/Training Program
DX: M13.80 Other specified arthritis, unspecified site (principal); R31.21 Asymptomatic microscopic hematuria
CPT/HCPCS: 99214

== ENCOUNTER → 2023-11-10 09:34 | Outpatient (BNVA) | payer OTHER, SELFPAY | PROVIDERS: PCP Internal Medicine; Visit Provider Student in an Organized Health Care Education/Training Program ==

== ENCOUNTER 2023-12-10 09:05 | Outpatient (REF) | payer OTHER, SELFPAY ==
[2023-12-10 09:21] LABS: MANUAL DIFF FLAG NO
[2023-12-10 09:42] LABS: Basophils Percent Auto 0.6 % (0-2); Eosinophils Absolute Auto 0.3 X10*3/uL (0.0-0.4); Eosinophils Percent Auto 4.5 % (0-4); Hematocrit 36.4 % (42.0-52.0); Hemoglobin 11.8 g/dl (14.0-18.0); Imm Gran Abs Auto 0.02 X10*3/uL (0.00-0.03); Imm Gran Pct Auto 0.3 % (0.0-0.4); Lymphocytes Absolute Auto 1.4 X10*3/uL (1.2-4.9); Lymphocytes Percent Auto 21.3 % (20-40); Mean Corpuscular HGB Conc 32.4 g/dl (31.0-36.0); Mean Corpuscular Hemoglobin 28.7 pg (27.0-33.0); Mean Corpuscular Volume 88.6 fL (80.0-98.0); Mean Platelet Volume 8.7 fL (9.4-12.4); Monocytes Absolute Auto 0.7 X10*3/uL (0.1-1.2); Monocytes Percent Auto 10.9 % (2-11); Neutrophils Absolute Auto 4.2 x10*3/uL (2.0-8.3); Neutrophils Percent Auto 62.4 % (45-73); Platelet Count 255 X10*3/uL (160-400); Red Blood Count 4.11 X10*6/uL (4.60-5.80); Red Cell Distribution Width 15.1 % (11.0-16.0); White Blood Count 6.7 X10*3/uL (4.8-10.8)
[2023-12-10 10:08] LABS: Alanine Aminotransferase 9 U/L (0-40); Albumin Level 3.8 g/dL (3.5-5.0); Alkaline Phosphatase 61 U/L (39-117); Anion Gap 11 (12-20); Aspartate Amino Transferase 11 U/L (5-37); Bilirubin Total 0.6 mg/dL (0.0-1.0); Blood Urea Nitrogen 17 mg/dL (9-16); C Reactive Protein 1.06 mg/dL (< or = 0.50); Calcium 9.1 mg/dL (8.4-10.2); Carbon Dioxide 26 mmol/L (22-29); Chloride 106 mmol/L (96-108); Estimated Glomerular Filt Rate > 60; Glucose Random 90 mg/dL (60-115); Sodium 139 mmol/L (135-145); Total Protein 6.6 g/dL (6.5-8.0)
[2023-12-10 10:36] LABS: Erythrocyte Sedimentation Rate 10 MM/HR (0-15)
== END 2023-12-10 09:06 | disposition home or self-care (01) ==
LOC: HO.LAB 09:05
PROVIDERS: PCP Internal Medicine; Visit Provider Student in an Organized Health Care Education/Training Program
DX: M13.80 Other specified arthritis, unspecified site (principal)
CPT/HCPCS: 36415; 80053; 85025; 85652; 86140

== ENCOUNTER 2023-12-13 10:33 | Outpatient (REF) | payer OTHER, SELFPAY ==
[2023-12-13 10:48] LABS: Appearance Urine Clear; Color Urine Yellow; Glucose Urine UA Negative (Negative); Leukocyte Esterase Urine Trace (Negative); Nitrite Urine Negative (Negative); Specific Gravity - Urine 1.015 (1.005-1.025); UMIC TRIGGER UACC YES; Urine Blood Trace (Negative); Urine Ketones Negative (Negative); Urine Protein Negative (Neg-Trace)
[2023-12-13 10:57] LABS: Bacteria Urine None Seen (None Seen); Hyaline Casts Urine 0-2 /LPF (0-2); Squamous Epithelial Cell Urine 0-2 /HPF (0-2); WBC Urine 0-5 /HPF (0-5)
== END 2023-12-13 10:34 | disposition home or self-care (01) ==
LOC: HO.LNP 10:33
PROVIDERS: Visit Provider Internal Medicine
DX: R31.9 Hematuria, unspecified (principal)
CPT/HCPCS: 81001

== ENCOUNTER 2023-12-16 07:26 | Day surgery (SDC) | payer OTHER, SELFPAY ==
--- NOTE | 2023-10-19 12:14 | HO.ANESPROP2 ---
HPI - Anesthesia Eval Consult details Narrative: 63yo M for Colonoscopy PMFSH Active Problems Active Problems: All Active Problems Hand pain, left (Acute) Swelling of knee joint, left (Acute) Migratory polyarthritis (Acute) Tick bite (Acute) Past Medical History Medical History Hypercholesteremia Hand arthritis Family History Family History Father History of alcohol abuse Mother No problems noted. Surgical History Surgical History History of hip replacement Social History Social History Alcohol intake: current Alcohol intake frequency: does not drink Patient Tobacco Use Status: Never used Tobacco Current occupational status: employed Current occupation: [employer] Allergies Allergy/AdvReac Type Severity Reaction Status Date / Time No Known Allergies Allergy Verified 10/10/23 10:57 Home Medications ?Medication ?Instructions ?Recorded ?Confirmed ?Last Taken ?Type atorvastatin 20 mg tablet 20 mg PO DAILY 09/21/23 10/10/23 Unknown History ibuprofen 800 mg tablet 800 mg PO TID 10/10/23 10/10/23 Unknown History Assessment and Plan Assessment Anesthesia Assessment: Chart Reviewed
[2023-10-19 13:54] VITALS: BMI 27.9
--- NOTE | 2023-12-15 09:07 | HO.ANESPROP2 ---
Documented by User: Clau Frey NP 12/15/23 09:08 HPI - Anesthesia Eval Consult details Narrative: 63yo M for Colonoscopy PMFSH Active Problems Active Problems: All Active Problems Hematuria (Acute) Hand pain, left (Acute) Swelling of knee joint, left (Acute) Migratory polyarthritis (Acute) Tick bite (Acute) Past Medical History Medical History Colon polyps Hypercholesteremia Hand arthritis Family History Family History Father History of alcohol abuse Mother No problems noted. Surgical History Surgical History Hx of inguinal herniorrhaphy H/O colonoscopy History of hip replacement Social History Social History Alcohol intake: current Alcohol intake frequency: does not drink Patient Tobacco Use Status: Never used Tobacco Advance Directives: No Advance Directives Information Provided: Yes Current occupational status: employed Current occupation: [employer] Allergies Allergy/AdvReac Type Severity Reaction Status Date / Time No Known Allergies Allergy Verified 12/16/23 08:39 Home Medications ?Medication ?Instructions ?Recorded ?Confirmed ?Last Taken ?Type No Known Home Meds 12/16/23 12/16/23 Unknown History Exam Height,Weight and Vital Signs: Height 6 ft 2 in Weight 98.43 kg Pertinent Lab Results Pertinent Lab Results: Laboratory Tests 12/10/23 09:19 WBC 6.7 Hgb 11.8 L Hct 36.4 L Plt Count 255 D Sodium 139 Potassium 4.0 Chloride 106 Carbon Dioxide 26 BUN 17 H Creatinine 0.82 Assessment and Plan Assessment Anesthesia Assessment: Chart Reviewed Documented by User: Eva Yang MD 12/16/23 08:42 PMFSH Past Medical History Medical History Colon polyps Hypercholesteremia Hand arthritis Family History Family History Father History of alcohol abuse Mother No problems noted. Family history of problems with anesthesia: No Surgical History Surgical History Hx of inguinal herniorrhaphy H/O colonoscopy History of hip replacement History of Problems with Anesthesia: No Social History Social History Alcohol intake: current Alcohol intake frequency: does not drink Patient Tobacco Use Status: Never used Tobacco Advance Directives: No Advance Directives Information Provided: Yes Current occupational status: employed Current occupation: [employer] Meds Allergies Allergy/AdvReac Type Severity Reaction Status Date / Time No Known Allergies Allergy Verified 12/16/23 08:39 Home Medications ?Medication ?Instructions ?Recorded ?Confirmed ?Last Taken ?Type No Known Home Meds 12/16/23 12/16/23 Unknown History Exam Airway Mallampati Class: II TM Dist: >3cm Neck ROM: Full Heart: rrr Lungs: cta Assessment and Plan Assessment Anesthesia Assessment: Anesthesia Plan Discussed Final Anesthetic Review Family History of Problems with Anesthesia: No History of Problems with Anesthesia: No NPO: Yes ASA Class: II Final Preanesthetic Review: No Changes in Pt Med Stat, Meds/Allgs Chart Reviewed, Consent Obtained/Reviewed and Anes Risks/Benef Reviewed Patient Risk: Low Procedure Risk: Low Anesthetic Plan Anesthetic Plan: MAC: Disposition: Standard PACU
--- NOTE | 2023-12-16 08:24 | MHC.SHP ---
Pre-Procedural Eval Section A - 24 Hr Update-Section A only Date of Service: 12/16/23 Section B - Complete if H&P > 30 days Chief Complaint: Encounter for screening for malignant neoplasm of Details of Present Illness: see H&P no changes Relevant Family History (Specify if Yes): No Relevant Social History: None Present Medications: see Short Stay Collaborative assessment Medical History: No relevant PMH Allergies: Allergies Allergy/AdvReac Type Severity Reaction Status Date / Time No Known Allergies Allergy Verified 11/10/23 09:41 Review of Systems Sugical H&P ROS: Negative: Constitution, Cardiovascular, Respiratory, Neurological, Psychiatric, Hem-Onc, Allergic/Immunologic, Gastrointestinal, Genitourinary, Musculoskeletal, Integumentary, Endocrine and Eyes/Ears/Nose/Throat Exam Surgical H&P Exam: Normal: HEENT, Normal: Heart, Normal: Lungs, Normal: Extremities, Normal: Abdomen, Normal: Skin and Normal: Neurological Plan Diagnosis/Plan: Unchanged I have reviewed the history and physical and performed a pertinent physical examination on my patient. No changes have occurred unless specified. Time Spent With Patient Time: Total time managing care of this patient today ____ minutes.
[2023-12-16 08:45] VITALS: BP 123/74; PULSE 84; RESP 18; TEMP 36.2; O2SAT 98
[2023-12-16] MEDS: Lactated Ringers 1,000 ML 100 ML IVCONT (08:48)
[2023-12-16 10:11] VITALS: BP 116/70; PULSE 58; RESP 18; TEMP 36.8; O2SAT 98
[2023-12-16 10:26] VITALS: BP 118/74; PULSE 57; RESP 18; O2SAT 96
[2023-12-16 10:37] VITALS: BP 126/79; PULSE 60; RESP 16; TEMP 36.8; O2SAT 96
--- NOTE | 2023-12-16 11:09 | OP_ITS ---
DATE OF SERVICE: 12/16/2023 SURGEON: Raúl Conrad MD INDICATIONS: Colon cancer screening and prior history of adenomatous colon polyps PREOPERATIVE DIAGNOSIS: POSTOPERATIVE DIAGNOSIS: PROCEDURE PERFORMED: Colonoscopy to the cecum. ESTIMATED BLOOD LOSS: COMPLICATIONS: ANESTHESIA: Monitored anesthesia care. ASSISTANTS: SPECIMENS: DESCRIPTION OF PROCEDURE: A history and physical was performed. The risks and benefits of the procedure were explained to the patient. Informed consent was obtained. The patient was placed in the left lateral decubitus position. A digital rectal exam was performed and was found to be normal. The Olympus pediatric video colonoscope was introduced into the rectum and advanced to the cecum. The cecum was identified by transillumination, palpation, and identification of ileocecal valve. Examination was performed. The scope was removed. He tolerated the procedure well and was returned to the recovery area in stable condition. FINDINGS: The terminal ileum was not examined. The visualized colonic mucosa was normal. There was moderate amount of liquid stool and some undigested food material, which was washed and suctioned as best possible, but this kept clogging the scope making cleaning and irrigation difficult. This was present in the cecum, hepatic flexure, and rectum, so the exam was limited. No polyps were identified. Retroflexed examination showed some small internal hemorrhoids. IMPRESSION: Normal colonoscopy, exam limited by prep. RECOMMENDATION: 1. Follow up as needed. 2. Based on today's limitations, I would recommend repeat colonoscopy in 3 years. MD VEE Montero/ANGELINA / [phone]
== END 2023-12-16 11:00 | disposition home or self-care (01) ==
PROVIDERS: PCP Internal Medicine; Visit Provider Internal Medicine Gastroenterology
PROC: 0DJD8ZZ Inspection of Lower Intestinal Tract, Via Natural or Artificial Opening Endoscopic (ICD-10-PCS; CPT 45378; principal; 2023-12-16 09:30)
DX: Z12.11 Encounter for screening for malignant neoplasm of colon (principal); Z86.010 Personal history of colon polyps; K64.8 Other hemorrhoids; E78.5 Hyperlipidemia, unspecified; Z79.899 Other long term (current) drug therapy; Z98.890 Other specified postprocedural states
CPT/HCPCS: 45378; J2704

== ENCOUNTER 2023-12-21 07:54 | Outpatient (AMB) | payer OTHER, SELFPAY ==
--- NOTE | 2023-12-21 07:55 | A.OFFVIS_ITS ---
Vital Signs 12/21/23 07:58 Height 6 ft 2 in Weight 206 lb 2.115 oz BMI 26.5 BP 115/70 Blood Pressure Location Rt brachial Position Sitting Respiration 18 Pulse 68 Pulse Source Pulse Oximeter Pulse Oximetry (%) 98 Oxygen Delivery Method Room Air Intake Visit Reasons: inflammatory arthritis/CM Intake Note: Patient presents for inflammatory. Allergies No Known Allergies Allergy (Verified 12/21/23 07:57) Medication List - Last Reconciled 12/21/23 by Traci Dangelo MD No Known Home Meds HPI Comments Details: Patient returns for follow-up. Completed the prednisone taper and felt that prednisone was very helpful. He took it for 3 weeks and afterwards he went for blood work, he was having left wrist pain and stiffness, could not make a fist when they were drawing blood work. It lasted a day or 2 and it self-resolved. Has been feeling well since. Initial history: This is a 63-year-old male who presents for evaluation of diffuse joint pain. July 26 patient pulled a tick from the right side of his lower back while at work. He does not recall any skin rashes associated with it 2 weeks later he started having migratory joint pain including right ankle, right foot, left knee was swollen and associated with loss of range of motion as well as bilateral shoulder stiffness and inability to raise it above his head. Bilateral hand pain and stiffness. He takes ibuprofen 2 to 3 times a day as needed worries joint pains. He is doing well. Without any joint pain or stiffness. Has been doing well over the weekend. He denies any skin rashes. Denies any weight loss or fevers. Denies any recent history of infections. Has a cousin who from juvenile rheumatoid arthritis. Otherwise he is unaware of any family history of an autoimmune rheumatic disease. Denies any history of uveitis or colitis. [facility] Medical History Colon polyps Hypercholesteremia Hand arthritis Surgical History Hx of inguinal herniorrhaphy H/O colonoscopy History of hip replacement Family History Father History of alcohol abuse Mother No problems noted. 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 Review of Systems [place] Denies arthralgias, Denies joint swelling and Denies stiffness Physical Exam Vital Signs: Last Vital Signs Pulse 68 12/21/23 07:58 Resp 18 12/21/23 07:58 BP 115/70 12/21/23 07:58 Pulse Ox 98 12/21/23 07:58 Oxygen Delivery Method Room Air 12/21/23 07:58 BMI result Body Mass Index 26.5 Const General: cooperative, healthy appearing and comfortable Nutritional Appearance: overweight Orientation/consciousness: patient oriented x3 HEENT Head: Yes normocephalic and Yes atraumatic Resp Effort & Inspection: normal respiratory effort and able to speak in complete sentences Cardio Rate: regular rate Rhythm: regular rhythm Skin General skin exam: no rashes or lesions noted Neuro General: patient oriented x3 Extrem Other: Osteoarthritic changes of both hands 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 This was 2 weeks after pulled a tick from his back, his Lyme screening is negative. He completed doxycycline course for 21 days. His labs show significantly elevated inflammatory markers with negative serologies including SOLOMON/RF/CCP/HLA B27. Last visit he presented with abrupt onset of left hip pain to the point that he was walking with a cane. There was significant improvement with prednisone taper. I think patient should be on a DMARD for new onset inflammatory arthritis. Palindromic rheumatism versus early seronegative RA versus spondyloarthritis. We discussed risks and benefits of methotrexate and hydroxychloroquine. Patient not interested in either at this time. Patient will call us if he gets another acute episode, will likely prescribe a prednisone taper Labs before next visit in 3 months Plan I spent 28 minutes reviewing patient's chart, evaluating patient, ordering diagnostic workup, counseling patient and documenting in the chart Orders: Orders Comprehensive Met. Panel 3 Months M13.80 - Other specified arthritis, unspecified site C Reactive Protein 3 Months M13.80 - Other specified arthritis, unspecified site Erythrocyte Sedimentation Rate 3 Months M13.80 - Other specified arthritis, unspecified site Complete Blood Count Auto Diff 3 Months M13.80 - Other specified arthritis, unspecified site Coding Level of Care Code Est Pt Level 4 (87487) Diagnoses Migratory polyarthritis M13.80
[2023-12-21 07:58] VITALS: BP 115/70; PULSE 68; RESP 18; O2SAT 98; BMI 26.5
== END 2023-12-21 08:20 | disposition home or self-care (01) ==
PROVIDERS: PCP Internal Medicine; Visit Provider Student in an Organized Health Care Education/Training Program
DX: M13.80 Other specified arthritis, unspecified site (principal)
CPT/HCPCS: 99214

== ENCOUNTER → 2023-12-21 07:54 | Outpatient (BNVA) | payer OTHER, SELFPAY | PROVIDERS: PCP Internal Medicine; Visit Provider Student in an Organized Health Care Education/Training Program ==

== ENCOUNTER 2024-01-18 08:51 | Outpatient (AMB) | payer OTHER, SELFPAY ==
--- NOTE | 2024-01-18 08:59 | MHC.OFFVIS ---
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 Caceres. He has a past medical history of hypercholesteremia and arthritis. He presents to the office today as a new patient for microscopic hematuria. In discussion with the patient today he reports having followed up with his PCP at which time microscopic hematuria was noted and recommendation was made for urology referral for further assessment evaluation. He also notes issues with urinary frequency and urgency during the winter months while at work and episodes of nocturia 2-3 times per night. He reports last year trialing out Flomax with PCP for urinary dribbling however did not find this helpful therefore discontinued the medication. When asked he denies any previous history of workplace chemical exposure and or a smoking history. Although he reports urinary issues as noted above he does not find them bothersome. We discussed at length potential causes of microscopic hematuria. Discussed reasons for blood in the urine may include but are not limited to kidney stones, cancer in the urinary tract, BPH, kidney stone disease or inflammatory conditions of the urinary tract. I have discussed workup to include cystoscopy evaluation. He otherwise denies dysuria, foul smelling urine, changes to urinary stream, flank pain, fever, and or chills. In office urinalysis results reviewed with the patient today 2+ microscopic hematuria. He discusses feeling microscopic hematuria might be due to consumption of NSAIDs for his ongoing issues with arthritis. Discussed urine cytology, retroperitoneal ultrasound for further assessment evaluation as well as in office cystoscopy. He otherwise offers no other issues or concerns at this time. PSAs: 07/14 2.9, 01/11 1.7, 05/13, 06/15 2.3 PFSH Medical History Colon polyps Hypercholesteremia Hand arthritis Surgical History Hx of inguinal herniorrhaphy H/O colonoscopy History of hip replacement Family History Father History of alcohol abuse Mother No problems noted. 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 Review of Systems Const All systems reviewed & are unremarkable except as noted in HPI and below Physical Exam Const General: cooperative, healthy appearing, comfortable, no acute distress, well developed, alert and awake Orientation/consciousness: patient oriented x3 Limitations: no limitations HEENT Head: Yes normal to inspection, Yes normocephalic and Yes atraumatic Ears: hearing grossly normal bilaterally Eyes General: appearance normal, both eyes and all related structures Neck Neck: Yes normal visual inspection and Yes trachea midline Chest Chest palpation & inspection: normal inspection of the chest Resp Effort & Inspection: normal respiratory effort and able to speak in complete sentences Cardio Rate: regular rate GI Inspection: Yes normal to inspection General: Yes no CVA tenderness Back/Spine/Pelvis Back: no CVA tenderness Skin General skin exam: no rashes or lesions noted Neuro General: patient oriented x3 Extrem General: Yes normal to inspection Psych Appearance: grossly normal and well kempt Mental Status: mental status grossly normal Speech and movement: Normal speech and movement present and Clear speech present Affect: normal affect Attitude: cooperative Thought process: Normal thought process present Thought content: Normal thought content present Insight: Fair insight present (Psych) Judgement: Fair judgement present (Psych) Results AMB Urinalysis, Automated UA Leukoctes 15 Ruiz/uL Last Edit by Shad Woods on 01/18/24 09:14 UA Nitrite Last Edit by Shad Woods on 01/18/24 09:14 UA Urobilinogen 0.2 mg/dL Last Edit by Shad Woods on 01/18/24 09:14 UA Protein 15 mg/dL Last Edit by Shad Woods on 01/18/24 09:14 UA pH 6.0 Last Edit by Shad Woods on 01/18/24 09:14 UA Blood 80 Apolinar/uL Last Edit by Shad Woods on 01/18/24 09:14 UA Specific Lockwood 1.025 Last Edit by Shad Woods on 01/18/24 09:14 UA Ketone Last Edit by Shad Woods on 01/18/24 09:14 UA Bilirubin 0 mg/dL Last Edit by Shad Woods on 01/18/24 09:14 UA Glucose 0 mg/dL Last Edit by Shad Woods on 01/18/24 09:14 Results Reviewed Results Reviewed: Laboratory Last Values Urine pH (Auto) 6.0 01/18/24 09:07 Specific Lockwood (Auto) 1.025 01/18/24 09:07 Urine Protein (Auto) 15 mg/dL 01/18/24 09:07 Glucose (UA)(Auto) 0 mg/dL 01/18/24 09:07 Urine Blood (Auto) 80 Apolinar/uL 01/18/24 09:07 Urine Bilirubin (Auto) 0 mg/dL 01/18/24 09:07 Urine Urobilinogen (Auto) 0.2 mg/dL 01/18/24 09:07 Leukocyte Esterase (Auto) 15 Ruiz/uL 01/18/24 09:07 Assessment & Plan Assessment & Plan (1) Microscopic hematuria: Code(s): R31.29 - Other microscopic hematuria Category: Medical (2) Lower urinary tract symptoms: Code(s): R39.9 - Unspecified symptoms and signs involving the genitourinary system Category: Medical Plan In office urinalysis results reviewed with the patient today; as noted above; will send for urine cytology. Discussed at length potential causes of microscopic hematuria; discussed further workup to include retroperitoneal ultrasound, urine cytology, and in office cystoscopy; risks and benefits of these interventions were discussed. Will obtain retroperitoneal ultrasound for further assessment evaluation. Discussed lifestyle modifications to assist with urinary urgency, urinary frequency, and nocturia. Discussed bladder triggers/irritants. Information provided regarding pelvic floor exercises for men. CISCO offered however deferred. Patient discusses his reluctancy to taking medications. Follow-up in 1-3 months with imaging to be completed prior; or sooner with any issues, concerns, and or questions. Orders: Orders AMB Urinalysis Automated Today Z13.9 - Encounter for screening, unspecified Urine Cytology Today R31.21 - Asymptomatic microscopic hematuria Patient Instructions: The patient had an opportunity to ask questions regarding the treatment plan. All questions were answered. Physical exam, labs, and imaging were discussed and reviewed in detail. As well as risks, benefits, and discussion of treatment choices. No major barriers to understanding were identified. The patient expressed understanding and agreement with the above treatment plan. The patient was made aware they should contact our office by phone for worsening of their current condition, the appearance of new symptoms, or with any questions or concerns. Compliance is encouraged with any medications and follow up testing that is ordered. It is a privilege to be allowed the opportunity to participate in? your urological care.? Again, if you have any questions or concerns If you have any questions or concerns please do not hesitate to contact me. The office is [phone]. This note is constructed using voice recognition software. While every effort has been made to ensure accuracy compound machine operator errors may have been included. Yours sincerely, FRANCISCO Sherman Coding Level of Care Code New Pt Level 3 (90108) Diagnoses Microscopic hematuria R31.29 Lower urinary tract symptoms R39.9
== END 2024-01-18 09:37 | disposition home or self-care (01) ==
PROVIDERS: PCP Internal Medicine; Visit Provider Nurse Practitioner Family
DX: R31.29 Other microscopic hematuria (principal); R39.9 Unspecified symptoms and signs involving the genitourinary system; Z13.9 Encounter for screening, unspecified
CPT/HCPCS: 99203

== ENCOUNTER 2024-01-18 08:51 | Outpatient (REF) | payer OTHER, SELFPAY ==
[2024-01-18 16:30] LABS: Urine Cytology See Pathology rpt
== END 2024-01-18 08:52 | disposition home or self-care (01) ==
LOC: HO.LNP 08:51
PROVIDERS: PCP Internal Medicine; Visit Provider Nurse Practitioner Family
DX: R31.21 Asymptomatic microscopic hematuria (principal); Z13.9 Encounter for screening, unspecified
CPT/HCPCS: 81003; 88112

== ENCOUNTER 2024-02-02 10:19 | Outpatient (REF) | payer OTHER, SELFPAY ==
--- NOTE | ~2024-02-02 | US_ITS ---
EXAMINATION: US RETROPERITONEAL COMPLETE (RENAL) CLINICAL INFORMATION: Unspecified symptoms and signs involving the genitourinary system. COMPARISON: None available. TECHNIQUE: Real-time imaging of the kidneys and bladder. FINDINGS: RIGHT KIDNEY: 10.3 x 5.7 x 4.6 cm (SAG x AP x TRV). The kidney is normal in size, contour, and echogenicity. Renal cortical thickness is normal. No calculi or focal parenchymal lesions. No hydronephrosis. LEFT KIDNEY: 10.8 x 5.4 x 5.8 cm (SAG x AP x TRV). The kidney is normal in size, contour, and echogenicity. Renal cortical thickness is normal. No renal calculi or hydronephrosis. A benign lower pole 3.5 cm Bosniak class I renal cyst is noted which requires no additional imaging or follow up. No solid renal masses are seen. BLADDER: Well distended and normal. Bilateral ureteral jets are demonstrated. Prevoid bladder volume is 291 mL. Postvoid bladder volume is 30.7 mL. PROSTATE: There is [id number] prostatomegaly at 105 mL ADDITIONAL FINDINGS: A 4.3 cm benign-appearing cyst in the right lobe of the liver is seen. US/US retroperitoneal comp IMPRESSION: 1. Dvwujete-[id number] BPH, 105 g prostate and 30.7 mL post void residual. 2. Benign Bosniak class I left renal cyst needs no further imaging or follow up. Electronically signed by: Toni Copeland MD 02/08/2024 03:09 PM EDT
== END 2024-02-02 10:20 | disposition home or self-care (01) ==
LOC: HO.US 10:19
PROVIDERS: PCP Internal Medicine; Visit Provider Nurse Practitioner Family
DX: R39.9 Unspecified symptoms and signs involving the genitourinary system (principal); R31.29 Other microscopic hematuria
CPT/HCPCS: 76770

== ENCOUNTER 2024-03-13 08:21 | Outpatient (AMB) | payer OTHER, SELFPAY ==
--- NOTE | 2024-03-13 08:38 | A.OFFVIS_ITS ---
Intake Visit Reasons: 2m/US(set) Intake Note: Patient presents today for follow up on:microscopic hematuria Urology Medications: none Blood Thinner: none Community Development Manager Required: No Accompanied by: Self / Same As Patient Allergies No Known Allergies Allergy (Verified 03/13/24 09:15) Medication List - Last Reconciled 03/13/24 by FRANCISCO Sherman No Known Home Meds HPI Comments Details: Rich Braswell is a 64-year-old male patient of Dr. Caceres. He has a past medical history of hypercholesteremia and arthritis. He presents to the office today for follow-up. Of note, patient was seen approximately 2 months ago as a new patient for microscopic hematuria at which time a retroperitoneal ultrasound was ordered and his urine was sent for urine cytology. These results were reviewed with the patient today. Bilateral kidneys with no lesions or hydronephrosis. A benign right lower pole 3.5 cm Bosniak class 1 renal cyst is noted that requires no imaging follow-up per radiology report. The bladder is well distended and normal. Bladder jets are demonstrated. Pre void volume is proximally 300 mL. Postvoid bladder volume is a proximally 30 mL. There is moderate to marked prostatomegaly at 105 mL. Urine cytology 01/13 Negative for high-grade urothelial carcinoma. We discussed at length potential causes of prostatomegaly as well as microscopic hematuria. We discussed workup to include in office cystoscopy however patient declines at this time. He would like to continue with surveillance monitoring. He does report noting episodes of urinary urgency and frequency with colder weather however does not find this bothersome and feels he is managing his urinary symptoms independently. He has a history a previous history of trialing Flomax in the past with his PCP for urinary dribbling however he did not find this helpful therefore discontinued the medication. In office urinalysis results reviewed with the patient today 1+ microscopic hematuria. He discusses feeling microscopic hematuria might be due to consumption of NSAIDs for his ongoing issues with arthritis. He otherwise offers no other issues or concerns at this time. PSAs: 07/14 2.9, 01/11 1.7, 05/13, 06/15 2.3 PFSH Medical History Colon polyps Hypercholesteremia Hand arthritis Surgical History Hx of inguinal herniorrhaphy H/O colonoscopy History of hip replacement Family History Father History of alcohol abuse Mother No problems noted. 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 Review of Systems Const All systems reviewed & are unremarkable except as noted in HPI and below Physical Exam Const General: cooperative, healthy appearing, comfortable, no acute distress, well developed, alert and awake Orientation/consciousness: patient oriented x3 Limitations: no limitations HEENT Head: Yes normal to inspection, Yes normocephalic and Yes atraumatic Ears: hearing grossly normal bilaterally Eyes General: appearance normal, both eyes and all related structures Neck Neck: Yes normal visual inspection and Yes trachea midline Chest Chest palpation & inspection: normal inspection of the chest Resp Effort & Inspection: normal respiratory effort and able to speak in complete sentences Cardio Rate: regular rate GI Inspection: Yes normal to inspection General: Yes no CVA tenderness Back/Spine/Pelvis Back: no CVA tenderness Skin General skin exam: no rashes or lesions noted Neuro General: patient oriented x3 Extrem General: Yes normal to inspection Psych Appearance: grossly normal and well kempt Mental Status: mental status grossly normal Speech and movement: Normal speech and movement present and Clear speech present Affect: normal affect Attitude: cooperative Thought process: Normal thought process present Thought content: Normal thought content present Insight: Fair insight present (Psych) Judgement: Fair judgement present (Psych) Results AMB Urinalysis, Automated UA Leukoctes 70 Ruiz/uL Last Edit by Shad Woods on 03/13/24 09:02 UA Nitrite Last Edit by Shad Woods on 03/13/24 09:02 UA Urobilinogen 0.2 mg/dL Last Edit by Shad Woods on 03/13/24 09:02 UA Protein 15 mg/dL Last Edit by Shad Woods on 03/13/24 09:02 UA pH 5.5 Last Edit by Shad Woods on 03/13/24 09:02 UA Blood 25 Apolinar/uL Last Edit by Shad Woods on 03/13/24 09:02 UA Specific [place] 1.020 Last Edit by Shad Woods on 03/13/24 09:02 UA Ketone Last Edit by Shad Woods on 03/13/24 09:02 UA Bilirubin 0 mg/dL Last Edit by Shad Woods on 03/13/24 09:02 UA Glucose 0 mg/dL Last Edit by Shad Woods on 03/13/24 09:02 Results Reviewed Results Reviewed: Laboratory Last Values Urine pH (Auto) 5.5 03/13/24 08:44 Specific [place] (Auto) 1.020 03/13/24 08:44 Urine Protein (Auto) 15 mg/dL 03/13/24 08:44 Glucose (UA)(Auto) 0 mg/dL 03/13/24 08:44 Urine Blood (Auto) 25 Apolinar/uL 03/13/24 08:44 Urine Bilirubin (Auto) 0 mg/dL 03/13/24 08:44 Urine Urobilinogen (Auto) 0.2 mg/dL 03/13/24 08:44 Leukocyte Esterase (Auto) 70 Ruiz/uL 03/13/24 08:44 Date of Service: 02/02/24 EXAMINATION: US RETROPERITONEAL COMPLETE (RENAL) FINDINGS: RIGHT KIDNEY: 10.3 x 5.7 x 4.6 cm (SAG x AP x TRV). The kidney is normal in size, contour, and echogenicity. Renal cortical thickness is normal. No calculi or focal parenchymal lesions. No hydronephrosis. LEFT KIDNEY: 10.8 x 5.4 x 5.8 cm (SAG x AP x TRV). The kidney is normal in size, contour, and echogenicity. Renal cortical thickness is normal. No renal calculi or hydronephrosis. A benign lower pole 3.5 cm Bosniak class I renal cyst is noted which requires no additional imaging or follow up. No solid renal masses are seen. BLADDER: Well distended and normal. Bilateral ureteral jets are demonstrated. Prevoid bladder volume is 291 mL. Postvoid bladder volume is 30.7 mL. PROSTATE: There is [id number]-kgznhd prostatomegaly at 105 mL ADDITIONAL FINDINGS: A 4.3 cm benign-appearing cyst in the right lobe of the liver is seen. IMPRESSION: 1. Inelfpzf-ht-sfjfpt BPH, 105 g prostate and 30.7 mL post void residual. 2. Benign Bosniak class I left renal cyst needs no further imaging or follow up. Assessment & Plan Assessment & Plan (1) Enlarged prostate: Code(s): N40.0 - Benign prostatic hyperplasia without lower urinary tract symptoms Category: Medical (2) Lower urinary tract symptoms: Code(s): R39.9 - Unspecified symptoms and signs involving the genitourinary system Category: Medical (3) Microscopic hematuria: Code(s): R31.29 - Other microscopic hematuria Category: Medical (4) Renal cyst: Code(s): N28.1 - Cyst of kidney, acquired Category: Medical Plan In office urinalysis results reviewed with the patient today; as noted above. Previous urine cytology results reviewed with the patient today; as noted above. Recent retroperitoneal ultrasound results reviewed with the patient today; as noted above. We discussed initiation of finasteride given marked prostatomegaly noted on retroperitoneal ultrasound; patient declines as he does not feel any bothersome urinary issues. We discussed silent prostatism however patient would like to continue with surveillance monitoring at this time. We discussed at length potential causes of renal cysts, prostatomegaly, and microscopic hematuria. We discussed further workup to include in office cystoscopy; risks and benefits of this intervention was discussed. All questions were answered. Patient would like to continue with surveillance monitoring. He does report noting urge frequency with episodes of colder weather however does not find them bothersome and feels he is independently managing his lower urinary tract symptoms. He continues to discuss feeling no bothersome urinary issues or concerns. Follow-up in 6 months; or sooner with any issues, concerns, and or questions. Orders: Orders AMB Urinalysis Automated Today Z13.9 - Encounter for screening, unspecified Prostate Specific Antigen 6 Months N40.0 - Benign prostatic hyperplasia without lower urinary tract symptoms Patient Instructions: The patient had an opportunity to ask questions regarding the treatment plan. All questions were answered. Physical exam, labs, and imaging were discussed and reviewed in detail. As well as risks, benefits, and discussion of treatment choices. No major barriers to understanding were identified. The patient expressed understanding and agreement with the above treatment plan. The patient was made aware they should contact our office by phone for worsening of their current condition, the appearance of new symptoms, or with any questions or concerns. Compliance is encouraged with any medications and follow up testing that is ordered. It is a privilege to be allowed the opportunity to participate in? your urological care.? Again, if you have any questions or concerns If you have any questions or concerns please do not hesitate to contact me. The office is [phone]. This note is constructed using voice recognition software. While every effort has been made to ensure accuracy bilingual social worker errors may have been included. Yours sincerely, FRANCISCO Sherman Coding Level of Care Code Est Pt Level 4 (95597) Diagnoses Enlarged prostate N40.0 Lower urinary tract symptoms R39.9 Microscopic hematuria R31.29 Renal cyst N28.1 Time Spent (min) 25
== END 2024-03-13 09:18 | disposition home or self-care (01) ==
PROVIDERS: PCP Internal Medicine; Visit Provider Nurse Practitioner Family
DX: N40.0 Benign prostatic hyperplasia without lower urinary tract symptoms (principal); R39.9 Unspecified symptoms and signs involving the genitourinary system; R31.29 Other microscopic hematuria; N28.1 Cyst of kidney, acquired; Z13.9 Encounter for screening, unspecified
CPT/HCPCS: 99214

== ENCOUNTER 2024-03-13 08:21 | Outpatient (REF) | payer OTHER, SELFPAY ==
[2024-03-13 17:26] LABS: Urine Cytology See Pathology rpt
== END 2024-03-13 08:22 | disposition home or self-care (01) ==
LOC: HO.LNP 08:21
PROVIDERS: PCP Internal Medicine; Visit Provider Nurse Practitioner Family
DX: R31.29 Other microscopic hematuria (principal)
CPT/HCPCS: 81003; 88112

== ENCOUNTER 2024-03-20 08:09 | Outpatient (REF) | payer OTHER, SELFPAY ==
[2024-03-20 08:31] LABS: MANUAL DIFF FLAG NO
[2024-03-20 09:28] LABS: Basophils Absolute Auto 0.1 X10*3/uL (0.0-0.2); Eosinophils Absolute Auto 0.2 X10*3/uL (0.0-0.4); Eosinophils Percent Auto 3.3 % (0-4); Hematocrit 40.3 % (42.0-52.0); Hemoglobin 13.6 g/dl (14.0-18.0); Imm Gran Abs Auto 0.01 X10*3/uL (0.00-0.03); Imm Gran Pct Auto 0.2 % (0.0-0.4); Lymphocytes Absolute Auto 1.6 X10*3/uL (1.2-4.9); Lymphocytes Percent Auto 27.4 % (20-40); Mean Corpuscular HGB Conc 33.7 g/dl (31.0-36.0); Mean Platelet Volume 8.8 fL (9.4-12.4); Monocytes Absolute Auto 0.6 X10*3/uL (0.1-1.2); Monocytes Percent Auto 10.3 % (2-11); Neutrophils Absolute Auto 3.4 x10*3/uL (2.0-8.3); Neutrophils Percent Auto 57.8 % (45-73); Platelet Count 246 X10*3/uL (160-400); Red Blood Count 4.53 X10*6/uL (4.60-5.80); Red Cell Distribution Width 13.1 % (11.0-16.0); White Blood Count 5.8 X10*3/uL (4.8-10.8)
[2024-03-20 10:03] LABS: Erythrocyte Sedimentation Rate 5 MM/HR (0-15)
[2024-03-20 10:33] LABS: Alanine Aminotransferase 13 U/L (0-40); Albumin Level 3.9 g/dL (3.5-5.0); Alkaline Phosphatase 67 U/L (39-117); Anion Gap 12 (12-20); Aspartate Amino Transferase 18 U/L (5-37); Bilirubin Total 0.7 mg/dL (0.0-1.0); Blood Urea Nitrogen 17 mg/dL (9-16); C Reactive Protein 0.37 mg/dL (< or = 0.50); Calcium 8.7 mg/dL (8.4-10.2); Carbon Dioxide 29 mmol/L (22-29); Chloride 105 mmol/L (96-108); Estimated Glomerular Filt Rate > 60; Glucose Random 89 mg/dL (60-115); Potassium 3.8 mmol/L (3.3-5.1); Sodium 142 mmol/L (135-145); Total Protein 6.5 g/dL (6.5-8.0)
== END 2024-03-20 08:10 | disposition home or self-care (01) ==
LOC: HO.LAB 08:09
PROVIDERS: PCP Internal Medicine; Visit Provider Student in an Organized Health Care Education/Training Program
DX: M13.80 Other specified arthritis, unspecified site (principal)
CPT/HCPCS: 36415; 80053; 85025; 85652; 86140

== ENCOUNTER 2024-03-22 07:53 | Outpatient (AMB) | payer OTHER, SELFPAY ==
[2024-03-22 08:12] VITALS: BP 120/60; PULSE 55; O2SAT 97; BMI 27.0
--- NOTE | 2024-03-22 08:12 | MHC.OFFVIS ---
Vital Signs 03/22/24 08:12 Height 6 ft 2 in Weight 210 lb 5.136 oz BMI 27.0 BP 120/60 Blood Pressure Location Lt brachial Position Sitting Pulse 55 Pulse Source Pulse Oximeter Pulse Oximetry (%) 97 Oxygen Delivery Method Room Air Intake Visit Reasons: Palindromic/CM Intake Note: Patient last seen by Doctor Traci Dangelo on 12/21/23. Presents today for Palindromic follow up and test results. 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 He states that he has been doing quite well since last visit. No joint swelling prolonged stiffness or pain. Has no complaints today Initial history: This is a 63-year-old male who presents for evaluation of diffuse joint pain. July 26 patient pulled a tick from the right side of his lower back while at work. He does not recall any skin rashes associated with it 2 weeks later he started having migratory joint pain including right ankle, right foot, left knee was swollen and associated with loss of range of motion as well as bilateral shoulder stiffness and inability to raise it above his head. Bilateral hand pain and stiffness. He takes ibuprofen 2 to 3 times a day as needed worries joint pains. He is doing well. Without any joint pain or stiffness. Has been doing well over the weekend. He denies any skin rashes. Denies any weight loss or fevers. Denies any recent history of infections. Has a cousin who from juvenile rheumatoid arthritis. Otherwise he is unaware of any family history of an autoimmune rheumatic disease. Denies any history of uveitis or colitis. [facility] Medical History Colon polyps Hypercholesteremia Hand arthritis Surgical History Hx of inguinal herniorrhaphy H/O colonoscopy History of hip replacement Family History Father History of alcohol abuse Mother No problems noted. 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 Review of Systems Musc Denies arthralgias, Denies joint swelling and Denies stiffness Physical Exam Vital Signs: Last Vital Signs Pulse 55 03/22/24 08:12 BP 120/60 03/22/24 08:12 Pulse Ox 97 03/22/24 08:12 Oxygen Delivery Method Room Air 03/22/24 08:12 BMI result Body Mass Index 27.0 Const General: cooperative, healthy appearing and comfortable Nutritional Appearance: overweight Orientation/consciousness: patient oriented x3 HEENT Head: Yes normocephalic and Yes atraumatic Resp Effort & Inspection: normal respiratory effort and able to speak in complete sentences Cardio Rate: regular rate Rhythm: regular rhythm Skin General skin exam: no rashes or lesions noted Neuro General: patient oriented x3 Extrem Other: Significant Osteoarthritic changes of both hands Normal gait today Negative straight leg raise test bilaterally Negative Fabere test bilaterally No knee pain with flexion-extension bilaterally No ankle swelling or tenderness bilaterally Assessment & Plan Assessment & Plan (1) Migratory polyarthritis: Comment: onset 09/2023 Code(s): M13.80 - Other specified arthritis, unspecified site Category: Medical Plan: This is a 63-year-old male presents for evaluation of migratory polyarthritis. This was 2 weeks after pulled a tick from his back, his tick panel +Lyme screening is negative. He completed doxycycline course for 21 days. His initial labs show significantly elevated inflammatory markers with negative serologies including SOOLMON/RF/CCP/HLA B27. Since then, patient had a few flare-ups to the point that he presented 1 day to clinic walking with a cane due to significant hip pain. Symptoms dramatically improve with prednisone. I think patient should be on a DMARD for new onset inflammatory arthritis. Palindromic rheumatism versus early seronegative RA versus spondyloarthritis. In previous visits, We discussed risks and benefits of methotrexate and hydroxychloroquine. Patient not interested in either at this time. Over the last 3 months patient has been doing quite well with no flare-ups. Inflammatory markers are normal. Discussed with patient that I would like to re-evaluate him in 6 months. Patient has co-pay is quite high. He will follow-up on a p.r.n. basis Plan I spent 15 minutes reviewing patient's chart, evaluating patient, counseling patient and documenting in the chart Coding Level of Care Code Est Pt Level 3 (82718) Diagnoses Migratory polyarthritis M13.80
== END 2024-03-22 08:21 | disposition home or self-care (01) ==
LOC: HO.RHE 07:54
PROVIDERS: PCP Internal Medicine; Visit Provider Student in an Organized Health Care Education/Training Program
DX: M13.80 Other specified arthritis, unspecified site (principal)
CPT/HCPCS: 99213

== ENCOUNTER → 2024-03-22 07:53 | Outpatient (BNVA) | payer OTHER, SELFPAY | PROVIDERS: PCP Internal Medicine; Visit Provider Student in an Organized Health Care Education/Training Program ==

== ENCOUNTER 2024-06-12 10:40 | Outpatient (REF) | payer OTHER, SELFPAY ==
[2024-06-12 10:49] LABS: MANUAL DIFF FLAG NO
[2024-06-12 11:03] LABS: Basophils Absolute Auto 0.1 X10*3/uL (0.0-0.2); Basophils Percent Auto 0.9 % (0-2); Eosinophils Absolute Auto 0.3 X10*3/uL (0.0-0.4); Eosinophils Percent Auto 4.4 % (0-4); Hemoglobin 13.4 g/dl (14.0-18.0); Imm Gran Abs Auto 0.01 X10*3/uL (0.00-0.03); Imm Gran Pct Auto 0.2 % (0.0-0.4); Lymphocytes Percent Auto 35.3 % (20-40); Mean Corpuscular HGB Conc 33.5 g/dl (31.0-36.0); Mean Corpuscular Hemoglobin 30.7 pg (27.0-33.0); Mean Corpuscular Volume 91.5 fL (80.0-98.0); Mean Platelet Volume 9.3 fL (9.4-12.4); Monocytes Absolute Auto 0.6 X10*3/uL (0.1-1.2); Monocytes Percent Auto 11.2 % (2-11); Neutrophils Absolute Auto 2.7 x10*3/uL (2.0-8.3); Platelet Count 219 X10*3/uL (160-400); Red Blood Count 4.37 X10*6/uL (4.60-5.80); Red Cell Distribution Width 12.8 % (11.0-16.0); White Blood Count 5.6 X10*3/uL (4.8-10.8)
[2024-06-12 11:18] LABS: Appearance Urine Clear; Color Urine Yellow; Glucose Urine UA Negative (Negative); Leukocyte Esterase Urine Trace (Negative); Nitrite Urine Negative (Negative); PH 5.5 (5.0-9.0); UMIC TRIGGER UACC YES; Urine Blood Negative (Negative); Urine Ketones Negative (Negative); Urine Protein Negative (Neg-Trace)
[2024-06-12 11:22] LABS: Bacteria Urine None Seen (None Seen); Hyaline Casts Urine 0-2 /LPF (0-2); RBC Urine 0-2 /HPF (0-2); Squamous Epithelial Cell Urine 0-2 /HPF (0-2); WBC Urine 0-5 /HPF (0-5)
[2024-06-12 11:28] LABS: Alanine Aminotransferase 12 U/L (0-40); Albumin Level 3.9 g/dL (3.5-5.0); Alkaline Phosphatase 66 U/L (39-117); Anion Gap 11 (12-20); Aspartate Amino Transferase 24 U/L (5-37); Bilirubin Total 0.6 mg/dL (0.0-1.0); Blood Urea Nitrogen 18 mg/dL (9-16); Calcium 8.7 mg/dL (8.4-10.2); Carbon Dioxide 27 mmol/L (22-29); Chloride 107 mmol/L (96-108); Cholesterol 221 mg/dL (<200); Estimated Glomerular Filt Rate > 60; Glucose Fasting 86 mg/dL (60-99); HDL Cholesterol 55 mg/dL (>40); LDL Cholesterol Calculated 153 mg/dL (<100); Potassium 3.9 mmol/L (3.3-5.1); Sodium 141 mmol/L (135-145); Total Protein 6.7 g/dL (6.5-8.0); Triglycerides 66 mg/dL (<150)
--- OUTSIDE RECORDS SUMMARY | 2024-06-12 12:09 | XMS_ITS | Data Portability ---
Author Organization [facility], [facility] Address [address] [place] [address] Assessment No assessment recorded. Plan of Treatment Reminders Order Date Submit Date Provider Last Modified By Organization Details Last Modified Time Details Appointments None record ed. Lab None record ed. Referral None record ed. Procedures None record ed. Surgeries None record ed. Imaging None record ed. Medication Orders None record ed. Patient TargetsNo targets recorded. Patient Instructions Encounter Date Encounter Id Patient Instructions Last Modified By Organization Details Last Modified Time 04/19/2016 [id number] Pt's POC was reviewed with agreement by patient. Pt was intstructed in and provided with a HEP handout. [email or web address] Not available 04/19/2016 16:48:22 Reason for Referral None Reported. Procedures Surgical History Date Name Laterality Status Provider Name and Address Organization Details Recorded Time 6 59853: PT Evaluation completed Viridiana Duckworth, PT, DPT, [address], [address], [facility] 04/19/2016 14:30:29 Imaging Results None recorded. Procedure Notes None recorded. Medical Equipment None Reported. Medications Name Sig Start Date Stop Date Status Note LastModified by Organization Details LastModified Time ondansetron HCl 4 mg tablet active Not Available Not Available Not Available methylprednis olone 4 mg tablet active Not Available Not Available Not Available sulfamethoxaz ole 800 mg-trimethopr im 160 mg tablet active Not Available Not Available Not Available tramadol 50 mg tablet active Not Available Not Available No t Available hydromorphone 2 mg tablet active Not Available Not Available Not Available cephalexin 500 mg capsule active Not Available Not Available Not Available erythromycin 5 mg/gram (0.5 %) eye ointment apply LEFT LOWER LID four times a day AFTER PROCEDURE active Not Available Not Available No t Available warfarin 1 mg tablet active Not Available Not Available Not Available Vitals None Recorded Social History None recorded. Functional Status None recorded. Mental Status None recorded. Family History Nothing Reported. Medical History No medical history recorded. Past Encounters Encounter ID Performer Location Encounter Start Date Encounter Closed Date Diagnosis/Indication Diagnosis SNOMED-CT Code Diagnosis ICD10 Code Diagnosis Note [id number] Viridiana Duckworth, PT, DPT, CSCS Physical Therapy, [facility] [address] [place] [address] 04/19/2016 14:22:17 04/20/2016 14:24:14 Neck pain [id number] M54.2 Pt is a 56 y.o. male who reports to PT with c/o L sided neck into LUE pain. Pt without neurologic al deficits but does demonstrat e increased neural tension. Contributi ng to this is poor posturing as well as decreased strength of cervical and postural muscles. Patient requires skilled physical therapy in order to safely and effectivel y progress their rehabilita tion to gain maximal functional outcome with as much symptom resolution as possible. 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 Treatment Plan: Patient to return 1-2 times per week for 4-6 weeks. Treatment to Include: ther ex, HEP, modalities PRN, edema massage/ma nual therapy, ROM, pt education. Health Concerns Section Related Observation LastModified by Organization Detai ls LastModified Time None Recorded Concern Status LastModified by Organization Details LastModified Time None Recorded Advance Directives Directive None Recorded Payers Encounter Date Sequence Insurance Name Policy Number Policy Clifton Covered Member ID Clifton Member ID Guarantor Name 04/19/[address] [place] [address] Rich Welch [id number] Rich Spear Notes Date Note Type Note Provider Name and Address Organization Details Recorded Time 04/19/2016 text/html Intake ReviewedReported bypatient.Patient intake form reviewedwith patient including pain drawing, scale, associated symptoms and functional limitations. 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
--- OUTSIDE RECORDS SUMMARY | 2024-06-12 12:09 | XMS_ITS ---
Author Organization [facility] Address [address] [place] [address] Care Team Providers Care Wire Machine Cutter Name Role Phone Maxx Caceres MD Primary Care Provider Rhiannon Conrad Jr, Raúl Ziegler REASON FOR VISIT Update Demographics - Personal Info Encounters Encounter Location Date Provider Diagnosis [facility] [address] [place] [address] 12/17/2023 Raúl Conrad Jr PLAN OF TREATMENT No Information
--- OUTSIDE RECORDS SUMMARY | 2024-06-12 12:09 | XMS_ITS ---
Author Organization [facility] Address [address] [place] [address] Care Team Providers Care Executive Director Of Marketing Name Role Phone Maxx Caceres MD Primary Care Provider Rhiannon Conrad Jr, Raúl Ziegler [phone] REASON FOR VISIT Update Demographics - Personal Info Encounters Encounter Location Date Provider Diagnosis [facility] [address] [place] [address] 12/17/2023 Raúl Conrad Jr PLAN OF TREATMENT No Information
--- OUTSIDE RECORDS SUMMARY | 2024-06-12 12:09 | XMS_ITS ---
Author Organization [facility] Address [address] [place] [address] Care Team Providers Care Senior Policy Associate Name Role Phone Maxx Caceres MD Primary Care Provider Rhiannon Conrad Jr, Raúl Ziegler REASON FOR VISIT Update Demographics - Personal Info Encounters Encounter Location Date Provider Diagnosis [facility] [address] [place] [address] 12/17/2023 Raúl Conrad Jr PLAN OF TREATMENT No Information
--- OUTSIDE RECORDS SUMMARY | 2024-06-12 12:10 | XMS_ITS | Patient Health Record ---
Author Organization [facility] Address [address] [place] [address] Care Team Providers Care Student Counselor Name Role Phone Morris CARRENO, Maxx Primary Care Provider Raúl Everett Jr ALLERGIES No Known Allergies REASON FOR REFERRAL No Information MEDICATIONS Medication SIG (Take, Route, Frequency, Duration) Notes Start Date End Date Status Atorvastatin Calcium 20 MG Oral for 30 Active IMMUNIZATIONS Vaccine Route Administration Date Status Comme nts Influenza Unknown 05/24/2018 Refused Influenza Unknown 08/15/2023 Refused SOCIAL HISTORY Sex Assigned At : Social History Observation Description Sex Assigned At Unknown PROBLEMS Problem Type ICD Code Onset Dates Problem Status W/U Status Risk SNOMED Code Notes Problem Colon cancer screening (Z12.11) Active confirmed 525712844 Problem Encounter for other preprocedural examination (Z01.818) Active confirmed 47392911 VITAL SIGNS Temperature 97.7 degrees Fahrenheit 08/15/2023 Blood pressure diastolic 00 mm Hg 08/15/2023 Height 6 ft 2 in in 08/15/2023 Blood pressure systolic 000 mm Hg 08/15/2023 Weight 217 lbs 08/15/2023 BMI 27.86 kg/m2 08/15/2023 Encounters Encounter Location Date Provider Diagnosis [facility] [address] [place] [phone] 10/21/2023 Raúl Conrad Jr [facility] [address] [place] [phone] 12/16/2023 Raúl Conrad Jr Colon cancer screening Z12.11 [facility] [address] [place] [address] 08/15/2023 Raúl Conrad Jr Colon cancer screening Z12.11 and Encounter for other preprocedural examination Z01.818 [facility] [address] [place] [address] 10/20/2023 Raúl Conrad Jr [facility] [address] [place] [address] 12/17/2023 Raúl Conrad Jr [facility] [address] [place] [address] 12/17/2023 Raúl oCnrad Jr [facility] [address] [place] [address] 12/17/2023 Raúl Conrad Jr [facility] [address] [place] [address] 12/17/2023 Raúl Conrad Jr ASSESSMENTS Encounter Date Diagnosis Assessment Notes Treatment Notes Treatment Clinical Notes 12/16/2023 Colon cancer screening (ICD-10 - Z12.11) 08/15/2023 Colon cancer screening (ICD-10 - Z12.11) 08/15/2023 Encounter for other preprocedural examination (ICD-10 - Z01.818) Colonoscopy material was printed PLAN OF TREATMENT Future Test Test Name Order Date COLONOSCOPY 12/22/2012 COLONOSCOPY 05/24/2018 COLONOSCOPY 08/15/2023 Insurance Providers Payer Name Payer Address Payer Phone Subscriber Number Group Number Insured Name Patient Relationship to Insured Coverage Start Date Coverage End Date [facility] [address] [place] [phone] [id number] BENITA MENDEZ Self - patient is the insured MEDICAL (GENERAL) HISTORY Medical History History ICD Code Hyperlipidemia Colon polyps, colonoscopy 06/10, multiple polyps, three-year followup Surgical History Surgery Date(Month/Year) right hip replacement Right inguinal herniorrhaphy
== END 2024-06-12 10:41 | disposition home or self-care (01) ==
LOC: HO.LNP 10:40
PROVIDERS: Visit Provider Internal Medicine
DX: Z00.00 Encounter for general adult medical examination without abnormal findings (principal); N40.0 Benign prostatic hyperplasia without lower urinary tract symptoms; E78.00 Pure hypercholesterolemia, unspecified; Z12.5 Encounter for screening for malignant neoplasm of prostate
CPT/HCPCS: 80053; 80061; 81001; 84153; 85025

== ENCOUNTER 2024-09-11 08:19 | Outpatient (AMB) | payer OTHER, SELFPAY ==
--- OUTSIDE RECORDS SUMMARY | 2024-09-11 08:40 | XMS_ITS ---
Author Organization Maxx Caceres MD Address [address] [place] [phone] Care Team Providers Care Plastic Technician Name Role Phone Maxx Caceres Primary Care Provider Allergies No Known Allergies REASON FOR VISIT 4 week/ must urine Medications Medication SIG (Take, Route, Frequency, Duration) Notes Start Date End Date Status Amoxicillin 500 MG 4 capsules by mouth one hour before dentist for 5 days Not-Taking Terbinafine HCl 250 MG 1 tablet Orally O nce a day for 90 days 10/20/2021 Not-Taking Doxycycline Hyclate 100 MG 1 capsule Orally Twice a day for 12 days 09/23/2023 Not-Taking Ibuprofen 800 MG 1 tablet with food o r milk as needed Orally Three times a day for 30 days 09/29/2023 Not-Taking Atorvastatin Calcium 20 MG 1 tablet Orally Once a day for 30 day(s) 06/16/2023 Not-Taking Vital Signs Blood pressure systolic 132 mm Hg 01/02/20 24 Blood pressure diastolic 60 mm Hg 024 Height 74 in 2024 Weight 208 lbs 2024 BMI 26.70 kg/m2 2024 weight is up 2 pounds since 11-10-23 Encounters Encounter Location Date Provider Diagnosis Maxx Caceres MD [address] [place] [phone] 2024 Maxx Caceres Microscopic hematuria R31.29 and Lyme disease A69.20 Assessments Encounter Date Diagnosis (ICD Code) Assessment Notes Treatment Notes Treatment Clinical Notes Section Notes 2024 Microscopic hematuria (ICD-10 - R31.29) is diminished and is going to see urology next week, will cntinue to monitor 2024 Lyme disease (ICD-10 - A69.20) is finally getting better on no meds, will continue to monitor Plan Of Treatment Treatment Notes Assessment Notes Microscopic hematuria is diminished and is going to see urology next week, will cntinue to monitor Lyme disease is finally getting b poli on no meds, will continue to monitor Next Appt Details Provider Name:Maxx Orr ier, 12/10/2024 07:30:00 AM, [address] [place] [address], [address] [facility], [place], [place], [phone], Provider Name:Maxx Orr ier, 12/17/2024 08:30:00 AM, [address] [place] [address], Suite [facility], [place], [place], [phone], Provider Name:Maxx dixonr, 06/14/2025 07:15:00 AM, [address] [place] [address], Suite [facility], [place], [place], [phone], Provider Name:Maxx Orr ier, 06/21/2025 08:30:00 AM, [address] [place] [address], Suite [facility], [place], [place], [phone], Progress Notes * BENITA MENDEZDOB:[birth year] (64 yo M)Acc No.[id number]:2024 Patient:?BENITA MENDEZ Provider:?Maxx Caceres MD :1960???Age:64 Y???Sex:Male Wale e:2024 Address:[address] [place], [place] [phone] Subjective: * Chief Complaints: * ???4 week/ must urine * HPI: ???Symptom(s):? stephenie is a 64 yo male here for 4 week follow up visit, had been on prednisone for 30 days. and was doing well. had been on tapering dose over the time period. has been off for 3 weeks and still doing well. prednisone 30 mg for 10 days and taper by 10 every week. * ROS:?General/Constitutional:?Denies?Chills.?Denies?Fatigue.?Denies?Fever.?Denies?Headache.?ENT:?Patient denies?decreased sense of smell , any loss of taste , sore throat.?Denies?Sore throat.?Respiratory:?Denies?Cough.?Denies?Shortness of breath at rest.?Denies?Shortness of breath with exertion.?Gastrointestinal:?Denies?Diarrhea.?Denies?Nausea.?Musculoskeletal:?Patient denies?muscle aches.?Peripheral Vascular:?Patient denies?red and blue toes.? * Medical History:? * Surgical History:? * Hospitalization/Major Diagno stic Procedure:? * Medications:?Not-Taking/PRNI buprofen 800 MG Tablet 1 tablet with food or milk as needed Orally Three times a dayDoxycycline Hyclate 100 MG Capsule 1 capsule Orally Twice a dayAtorvastatin Calcium 20 MG Tablet 1 tablet Orally Once a dayTerbinafine HCl 250 MG Tablet 1 tablet Orally Once a dayAmoxicillin 500 MG Tablet 4 capsules by mouth one hour before dentistMedication List reviewed and reconciled with the patientNot-Taking/PRN Ibuprofen 800 MG Tablet 1 tablet with food or milk as needed Orally Three times a dayNot-Taking/PRN Doxycycline Hyclate 100 MG Capsule 1 capsule Orally Twice a dayNot-Taking/PRN Atorvastatin Calcium 20 MG Tablet 1 tablet Orally Once a dayNot-Taking/PRN Terbinafine HCl 250 MG Tablet 1 tablet Orally Once a dayNot-Taking/PRN Amoxicillin 500 MG Tablet 4 capsules by mouth one hour before dentistMedication List reviewed and reconciled with the patient * Allergies:?N.K.D.A.yes[Aller gies Verified] Objective: * Vitals:?Ht: 74, Wt:208, BMI: 26.70, BP:132/60 weight is up 2 pounds since 11-10-23. * Examination: ???General Examination: ?GENERAL APPEARANCE:? alert, well hydrated, in no distress , male.?HEAD:? normocephalic.?SKIN:? good turgor.?HEART:? no murmurs, rubs, gallops, regular rate and rhythm.?LUNGS:? no wheezes, rales, rhonchi, good air movement, clear to auscultation bilaterally.? Assessment: * Assessment: 1.?Microscopic hematuria - R 31.29 (Primary)?2.?Lyme disease - A69.20? Plan: * Treatment: 2.?Lyme disease? Notes: is finally getting better on no meds, will continue to monitor.?? * Procedure Codes:? * * Sign off status: Completed true * Provider:?Maxx Caceres MD Date:?0 2024 Generated for Delphine contreras/Neil/eTransmitting on:?09/11/2024 08:40 AM EDT History and Physical Notes * HPI (History of Present Illness) Category Sub-Category Detail Notes Category Not es Symptom(s) stephenie is a 64 yo male here for 4 week follow up visit, had been on prednisone for 30 days. and was doing well. had been on tapering dose over the time period. has been off for 3 weeks and still doing well. prednisone 30 mg for 10 days and taper by 10 every week. Examination Category Sub-Category Detail Notes Category Not es General Examination GENERAL APPEARANCE: alert, w ell hydrated, in no distress , male HEAD: normocephalic HEART: no murmurs, rubs, ga llops, regular rate and rhythm LUNGS: no wheezes, rales, r honchi, good air movement, clear to auscultation bilaterally SKIN: good turgor
--- OUTSIDE RECORDS SUMMARY | 2024-09-11 08:40 | XMS_ITS ---
Author Organization Maxx Caceres MD Address [address] [place] [id number] Care Team Providers Care Log Manager Name Role Phone Maxx Caceres Primary Care [...] Location Date Provider Diagnosis Maxx Caceres MD [address] [place] [address] [place] [phone] 06/19/2024 Maxx Caceres History of hip replacement, [...] Up: 6 Months, Reason: Provider Name:Maxx blackwood, 12/10/2024 07:30:00 AM, [address] [place] [address], [place] [address], [place], [place], [phone], Provider Name:Maxx blackwood, 12/17/2024 08:30:00 AM, [address] [place] [address], [address], [phone], Provider Name:Maxx blackwood, 06/14/2025 07:15:00 AM, [address], [address], [place], [place], [phone], Provider Name:Maxx Orr ier, 06/21/2025 08:30:00 AM, [address], [address], [place], [phone], Progress Notes * BENITA MENDEZDOB:[birth year] (64 yo M)Acc No.[id number]:06/19/2024 Progress Notes Patient:?BENITA MENDEZ Provider:?Maxx Caceres MD :1960???Age:64 Y???Sex:Male Wale e:06/19/2024 Address:[address] [place] [address] [id number] Subjective: * Chief Complaints: * ???Annul visit * HPI: ???Depression Screening:?PHQ-9?Little interest or pleasure in doing things?Not at all,?Feeling down, depressed, or hopeless?Not at all,?Trouble falling or staying asleep, or sleeping too much?Not at all,?Feeling tired or having little energy?Not at all,?Poor appetite or overeating?Not at all,?Feeling bad about yourself or that you are a failure, or have let yourself or your family down?Not at all,?Trouble concentrating on things, such as reading the newspaper or watching television?Not at all,?Moving or speaking so slowly that other people could have noticed; or the opposite, being so fidgety or restless that you have been moving around a lot more than usual?Not at all,?Thoughts that you would be better off or of hurting yourself in some way?Not at all,?Total Score?0.?Interpretation and Intervention?Depression Screening Findings?Negative,?Follow-Up for Depression?: review of PHQ-9 found negative result, no follow-up needed.?here for follow up/ has been off prednisone since november/ has not gone on the medicines. has been seen by urology had us but no cysto. ???Communication Needs:?Communication Needs?Does the patient have a hearing impairment?No,?Does the patient have a vision impairment??Yes,?If yes, what is the vision impairment??Glasses, Poor vision,?Does the patient have a cognition impairment??No.?SDOH Questions:?SDOH Questions?In the past year have you been worried about losing housing??No,?In the past year have you or any family members you live with been unable to get any of the following when it was really needed? Check all that apply:?None.? * ROS:?General/Constitutional:?Change in appetite?denies.?Chills?denies.?Fever?denies.?Ophthalmologic:?Blurred vision?denies.?Discharge?denies.?Pain?denies.?ENT:?Decreased hearing?denies.?Sore throat?denies.?Swollen glands?denies.?Endocrine:?Cold intolerance?denies.?Excessive thirst?denies.?Heat intolerance?denies.?Weight loss?denies.?Respiratory:?Cough?denies.?Shortness of breath at rest?denies.?Shortness of breath with exertion?denies.?Wheezing?denies.?Cardiovascular:?Chest pain at rest?denies.?Chest pain with exertion?denies.?Irregular heartbeat?denies.?Shortness of breath?denies.?Gastrointestinal:?Abdominal pain?denies.?Change in bowel habits?denies.?Diarrhea?denies.?Nausea?denies.?Rectal bleeding?denies.?Vomiting?denies .?Genitourinary:?Patient complaining of?gets occasional tender left testical.?Blood in urine?denies.?Difficulty urinating?denies.?Frequent urination?denies.?Musculoskeletal:?Painful joints?denies.?Weakness?denies.?Skin:?Dry skin?denies.?Itching?denies.?Denies?Mole(s),? changes in moles, new moles or any lesions of concern.?Denies?Photosensitivity.?Rash?denies.?Neurologic:?Dizziness?denies.?Fainting?denies.?Headache?denies.? * Medical History:? * Surgical History:? * Hospitalization/Major Diagno stic Procedure:? * Family History:?Father: dece ased 50 yrs.?Mother: 82 yrs.?2 brother(s) , 1 sister(s) . .? Father- alcoholic Mother- ?[place], No pertinent family medical history brother alcoholic, Denies mental health/substance abuse family history. * Social History:?Tobacco Use:?Tobacco Use/Smoking?Patient is a?nonsmoker,?Additional Findings: Tobacco Non-User?Current non-smoker, currently using no form of tobacco.?Drugs/Alcohol:?Alcohol Screen?Did you have a drink containing alcohol in the past year??No,?Points?0,?Interpretation?Negative.?Miscellaneous:?Caffeine: yes, frequency:, 1-2 cups per day. Children: no. Community involvements: no. Exercise: no. Home smoke detector use: yes. Living with: alone. Marital status: single. Occupation: weeks/months/years, works full-time. Travel outside of the [place]: no. * Medications:?Not-Taking/PRNI buprofen 800 MG Tablet 1 [...] Allergies:?N.K.D.A.yes[Aller gies Verified] Objective: * Vitals:?Ht: 74, Wt: 215, BMI :27.6, BP:122/60, Wt-k.52. weight is up 7 pounds since 01-02-24. * ???Past Orders: ???Lab:Comprehensive [place]. P brittany Fast (Order Date - 06/12/2024) (Collection Date & Time - 06/12/2024 07:15 AM) ? Value Reference Range ?Sodium 141 135-145 - mmo l/L ?Bilirubin Total 0.6 0.0- 1.0 - mg/dL ?Aspartate Amino Transferase 24 5-37 - U/L ?Alanine Aminotransferase 12 0-40 - U/L ?Total Protein 6.7 6.5-8. 0 - g/dL ?Albumin Level 3.9 3.5-5. 0 - g/dL ?Alkaline Phosphatase 66 39-117 - U/L ?Potassium 3.9 3.3-5.1 - mmol/L ?Chloride 107 96-108 - mm ol/L ?Carbon Dioxide 27 22-29 - mmol/L ?Anion Gap 11 L 12-20 - ?Blood Urea Nitrogen 18 H 9-16 - mg/dL ?Creatinine 0.82 0.5-1.4 - mg/dL ?Estimated Glomerular Filt Rate > 60 - ?Glucose Fasting 86 60-9 9 - mg/dL ?Calcium 8.7 8.4-10.2 - m g/dL ???Lab:Lipid Panel (Order Da te - 06/12/2024) (Collection Date & Time - 06/12/2024 07:15 AM) ? Value Reference Range ?Triglycerides 66 <150 - mg/dL ?Cholesterol 221 H <200 - m g/dL ?LDL Cholesterol Calculated 153 H <100 - mg/dL ?HDL Cholesterol 55 >40 - mg/dL ???Lab:PSA,Total (Free>4and< 10) (Order Date - 06/12/2024) (Collection Date & Time - 06/12/2024 07:15 AM) ? Value Reference Range ?PSA,Total (Free>4and<10) 2.90 0.00-4.00 - ng/mL ???Lab:UA ClnCatch+Micro w/r flx Cult (Order Date - 06/12/2024) (Collection Date & Time - 06/12/2024 07:15 AM) ? Value Reference Range ?Color Urine Yellow - ?Appearance Urine Clear - ?PH 5.5 5.0-9.0 - ?Glucose Urine UA Negative Neg ative - mg/dL ?Urine Blood Negative Negative - ?Specific [place] Switch - Urine 1.020 1.005-1.025 - ?Urine Protein Negative Neg-Tr aga - mg/dL ?Urine Ketones Negative Negati ve - mg/dL ?Nitrite Urine Negative Negati ve - ?Leukocyte Esterase Urine Trace A Negative - ?RBC Urine 0-2 0-2 - /HPF ?WBC Urine 0-5 0-5 - /HPF ?Squamous Epithelial Cell Urine 0-2 0-2 - /HPF ?Bacteria Urine None Seen None Seen - ?Hyaline Casts Urine 0-2 0-2 - /LPF ???Lab:Complete Blood Count Auto Diff (Order Date - 06/12/2024) (Collection Date & Time - 06/12/2024 07:15 AM) ? Value Reference Range ?White Blood Count 5.6 4. 8-10.8 - X10*3/uL ?Red Blood Count 4.37 L 4.60 -5.80 - X10*6/uL ?Hemoglobin 13.4 L 14.0-18.0 - g/dl ?Hematocrit 40.0 L 42.0-52.0 - % ?Mean Corpuscular Volume 91.5 80.0-98.0 - fL ?Mean Corpuscular Hemoglobin 30.7 27.0-33.0 - pg ?Mean Corpuscular HGB Conc 33.5 31.0-36.0 - g/dl ?Red Cell Distribution Width 12.8 11.0-16.0 - % ?Platelet Count 219 160-4 00 - X10*3/uL ?Mean Platelet Volume 9.3 L 9.4-12.4 - fL ?Neutrophils Percent Auto 48.0 45-73 - % ?Imm Gran Pct Auto 0.2 0. 0-0.4 - % ?Lymphocytes Percent Auto 35.3 20-40 - % ?Monocytes Percent Auto 11.2 H 2-11 - % ?Eosinophils Percent Auto 4.4 H 0-4 - % ?Basophils Percent Auto 0.9 0-2 - % ?NRBC Pct Auto 0.0 0.0-0. 2 - /100WBC ?Neutrophils Absolute Auto 2.7 2.0-8.3 - x10*3/uL ?Imm Gran Abs Auto 0.01 0. 00-0.03 - X10*3/uL ?Lymphocytes Absolute Auto 2.0 1.2-4.9 - X10*3/uL ?Monocytes Absolute Auto 0.6 0.1-1.2 - X10*3/uL ?Eosinophils Absolute Auto 0.3 0.0-0.4 - X10*3/uL ?Basophils Absolute Auto 0.1 0.0-0.2 - X10*3/uL ?NRBC Abs Auto 0.000 0.0-0. 012 - X10*3/uL * Examination: ???General Examination: ?GENERAL APPEARANCE:?well developed, well nourished, in no acute distress.?HEAD:?normocephalic, atraumatic.?EYES:?pupils equal, round, reactive to light and accommodation, sclera non-icteric.?EARS:?normal.?ORAL CAVITY:?mucosa moist.?THROAT:?clear.?NECK/THYROID:?neck supple, full range of motion, no cervical lymphadenopathy, no bruits.?SKIN:?warm and dry, no suspicious lesions.?HEART:?regular rate and rhythm, S1, S2 normal, no murmurs.?LUNGS:?clear to auscultation bilaterally.?ABDOMEN:?soft, nontender, nondistended, bowel sounds present, normal, no organomegaly , no masses palpable.?RECTAL EXAM:?normal tone, no external hemorrhoids, no masses palpable, prostate normal, stool guaiac negative.?MALE GENITOURINARY:?no penile lesions or discharge, no testicular mass, testes descended bilaterally.?EXTREMITIES:?no clubbing, cyanosis, or edema.?NEUROLOGIC:?nonfocal, motor strength normal upper and lower extremities, sensory exam intact.? Assessment: * Assessment: 1.?Annual physical exam - Z0 0.00 (Primary)???2.?History of hip replacement, unspecified laterality - Z96.649???3.?Hypercholesterolemia - E78.00???4.?Hand arthritis - M19.049???5.?Prostatism - N40.0???6.?Colon cancer screening - Z12.11???7.?Depression screening - Z13.31??? Plan: * Treatment: 2.?History of hip replacemen t, unspecified laterality? Notes: no problems, doing well?? 3.?Hypercholesterolemia? Notes: is a little high but concerned about treating it due to arthritis when he started, will continue to monitor?? 4.?Hand arthritis? Notes: has resolved?? 5.?Prostatism? Notes: stable will continue to monitor?? 6.?Colon cancer screening? Notes: guaiac negative?? 7.?Depression screening? Notes: negative screen?? * Procedure Codes:? * Follow Up:?6 Months * * Sign off status: Completed true * Provider:?Maxx Caceres MD Date:?0 06/19/2024 Generated for Delphine contreras/Neil/eTransmitting on:?09/11/2024 08:40 AM [...] patient have a vision impairmen t?: Yes ?If yes, what is the vision impairment?: Glasses, Poor vision Does the patient have a cognition impair ment?: No Examination Category Sub-Category Detail Notes Category Not es General Examination GENERAL APPEARANCE: well dev eloped, well nourished, in no acute distress HEAD: normocephalic, atrau matic EYES: pupils equal, round, reactive to light and accommodation, sclera non- icteric EARS: normal THROAT: clear NECK/THYROID: neck supple, [...]
--- NOTE | 2024-09-11 08:41 | A.OFFVIS_ITS ---
Intake Visit Reasons: 6m/PSA/PVR(set) Intake Note: Patient presents today for follow up on:microscopic hematuria Urology Medications: none Blood Thinner: none Warehouse Receiver Required: No Accompanied by: Self / Same As Patient Allergies No Known Allergies Allergy (Verified 09/11/24 09:13) Medication List - Last Reconciled 09/11/24 by FRANCISCO Sherman No Known Home Meds HPI Comments Details: Rich Braswell is a 64-year-old male patient of Dr. Caceres. He has a past medical history of hypercholesteremia and arthritis. He presents to the office today for follow-up of his microscopic hematuria and lower urinary tract symptoms. In discussion with the patient today he reports to be doing and feeling well. He denies having had any bothersome urinary issues or concerns since his last office visit here. He does however discuss increase in co- payment with previous cytologies that have been ordered and performed. We discussed at length potential causes of microscopic hematuria as well as further workup to include cytology. Previous workup has included a retroperitoneal ultrasound 02/13 noting bilateral kidneys with no lesions or hydronephrosis. A benign right lower pole 3.5 cm Bosniak class 1 renal cyst is noted that requires no imaging follow-up per radiology report. The bladder is well distended and normal. Bladder jets are demonstrated. Pre void volume is proximally 300 mL. Postvoid bladder volume is a proximally 30 mL. There is moderate to marked prostatomegaly at 105 mL. Urine cytology 01/13 and 03/15 Negative for high-grade urothelial carcinoma. We discussed prostatomegaly as well as further treatment options. Patient does not feel any further workup is necessary at this time as he does not feel any bothersome urinary issues or concerns. He does report increased urinary frequency during colder weather however feels he is managing this well independently. We discussed potential causes of microscopic hematuria as well as prostatomegaly and further treatment options and risks and benefits of these treatment options. All questions were answered. In office urinalysis results reviewed with the patient today. Microscopic hematuria again noted. He discusses feeling microscopic hematuria might be due to consumption of NSAIDs for his ongoing issues with arthritis. He otherwise offers no other issues or concerns at this time. Most recent PSA results reviewed with the patient today as noted and trended below... PSAs: 07/14 2.9, 01/11 1.7, 05/13, 06/15 2.3, 06/16 2.9 Discussion Notes During the visit, I reviewed the patient's recent diagnostic results, including a PSA level of 2.9. The patient reports persistent asymptomatic microscopic hematuria. Despite this, prior cytology tests have returned negative, and there is a preference to avoid further unnecessary testing due to cost concerns. I explained that while microscopic hematuria is abnormal, there may not always be a discernible cause. We discussed the potential for blood in the urine to signify conditions such as bladder cancer over time, indicating the need for vigilance. Regarding the urinary symptoms, I emphasized the benefit of pelvic floor exercises as a non-medication approach, aligning with the patient's reluctance to use pharmaceuticals. I also explained the protocol for future appointments and emphasized the requirement for potential follow-up dependent on symptom progression. Plan The patient's PSA remains within normal limits, negating the need for immediate intervention. As symptoms are stable, continued monitoring and management with non-pharmacological techniques like pelvic floor exercises are suggested. I will rely on the patient to report any significant changes in symptoms warranting further evaluation. The patient will have access to appointment scheduling as needed, coordinated with his primary care evaluations, ensuring contact as necessary should conditions emerge that necessitate an additional review. [facility] Medical History Colon polyps Hypercholesteremia Hand arthritis Surgical History Hx of inguinal herniorrhaphy H/O colonoscopy History of hip replacement Family History Father History of alcohol abuse Mother No problems noted. 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 Review of Systems Const All systems reviewed & are unremarkable except as noted in HPI and below Physical Exam Const General: cooperative, healthy appearing, comfortable, no acute distress, well developed, alert and awake Orientation/consciousness: patient oriented x3 Limitations: no limitations HEENT Head: Yes normal to inspection, Yes normocephalic and Yes atraumatic Ears: hearing grossly normal bilaterally Eyes General: appearance normal, both eyes and all related structures Neck Neck: Yes normal visual inspection and Yes trachea midline Chest Chest palpation & inspection: normal inspection of the chest Resp Effort & Inspection: normal respiratory effort and able to speak in complete sentences Cardio Rate: regular rate GI Inspection: Yes normal to inspection General: Yes no CVA tenderness Back/Spine/Pelvis Back: no CVA tenderness Skin General skin exam: no rashes or lesions noted Neuro General: patient oriented x3 Extrem General: Yes normal to inspection Psych Appearance: grossly normal and well kempt Mental Status: mental status grossly normal Speech and movement: Normal speech and movement present and Clear speech present Affect: normal affect Attitude: cooperative Thought process: Normal thought process present Thought content: Normal thought content present Insight: Fair insight present (Psych) Judgement: Fair judgement present (Psych) Office Procedures Post Void Residual Post Residual Void Post Void Residual (PVR): 0 [id number] Void Residual by ultrasound Results AMB Urinalysis, Automated UA Leukoctes 0 Ruiz/uL Last Edit by Shad Woods on 09/11/24 09:07 UA Nitrite Last Edit by Shad Woods on 09/11/24 09:07 UA Urobilinogen 0.2 mg/dL Last Edit by Shad Woods on 09/11/24 09:07 UA Protein 15 mg/dL Last Edit by Shad Woods on 09/11/24 09:07 UA pH 6.0 Last Edit by Shad Woods on 09/11/24 09:07 UA Blood 10 Apolinar/uL Last Edit by Shad Woods on 09/11/24 09:07 UA Specific [place] 1.025 Last Edit by Shad Woods on 09/11/24 09:07 UA Ketone Last Edit by Shad Woods on 09/11/24 09:07 UA Bilirubin 0 mg/dL Last Edit by Shad Woods on 09/11/24 09:07 UA Glucose 0 mg/dL Last Edit by Shad Woods on 09/11/24 09:07 Results Reviewed Results Reviewed: Laboratory Last Values Urine pH (Auto) 6.0 09/11/24 09:06 Specific [place] (Auto) 1.025 09/11/24 09:06 Urine Protein (Auto) 15 mg/dL 09/11/24 09:06 Glucose (UA)(Auto) 0 mg/dL 09/11/24 09:06 Urine Blood (Auto) 10 Apolinar/uL 09/11/24 09:06 Urine Bilirubin (Auto) 0 mg/dL 09/11/24 09:06 Urine Urobilinogen (Auto) 0.2 mg/dL 09/11/24 09:06 Leukocyte Esterase (Auto) 0 Ruiz/uL 09/11/24 09:06 Assessment & Plan Assessment & Plan (1) Microscopic hematuria: Code(s): R31.29 - Other microscopic hematuria Category: Medical (2) Enlarged prostate: Code(s): N40.0 - Benign prostatic hyperplasia without lower urinary tract symptoms Category: Medical (3) Renal cyst: Code(s): N28.1 - Cyst of kidney, acquired Category: Medical Plan In office urinalysis results reviewed with the patient today; as noted above. Most recent PSA results reviewed with the patient today; as noted above. Patient currently denies any bothersome urinary issues or concerns. He reports be happy with current voiding parameters. We discussed pelvic floor exercises Patient discusses increase in copays and medical bills therefore will make p.r.n. per patient request Follow-up p.r.n. Orders: Orders AMB Urinalysis Automated Today Z13.9 - Encounter for screening, unspecified AMB Post Void Residual by ultrasound Today R39.9 - Unspecified symptoms and signs involving the genitourinary system Patient Instructions: The patient had an opportunity to ask questions regarding the treatment plan. All questions were answered. Physical exam, labs, and imaging were discussed and reviewed in detail. As well as risks, benefits, and discussion of treatment choices. No major barriers to understanding were identified. The patient expressed understanding and agreement with the above treatment plan. The patient was made aware they should contact our office by phone for worsening of their current condition, the appearance of new symptoms, or with any questions or concerns. Compliance is encouraged with any medications and follow up testing that is ordered. It is a privilege to be allowed the opportunity to participate in? your urological care.? Again, if you have any questions or concerns If you have any questions or concerns please do not hesitate to contact me. The office is [phone]. This note is constructed using voice recognition software. While every effort has been made to ensure accuracy infection control coordinator errors may have been included. Yours sincerely, IDALIA Sherman-VEE Coding Level of Care Code Est Pt Level 3 (47527) Complex EM visit Add On G2211 Diagnoses Microscopic hematuria R31.29 Enlarged prostate N40.0 Renal cyst N28.1 CPT Codes Post Residual Void - PVR CPT Code: 82702-Hgrs Void Residual by ultrasound ([id number])
--- OUTSIDE RECORDS SUMMARY | 2024-09-11 08:41 | XMS_ITS | Data Portability ---
Author Organization [facility], [facility] Address [address] [place] [address] Assessment No assessment recorded. Plan of Treatment [...] By Organization Details Last Modified Time 04/19/2016 [id number] Pt's POC was reviewed with agreement by patient. Pt was intstructed in and provided with a HEP handout. [email or web address] Not available 04/19/2016 16:48:22 Reason for Referral None Reported. Procedures Surgical History Date Name Laterality Status Provider Name and Address Organization Details Recorded Time 6 [address]: PT Evaluation completed Viridiana Duckworth, PT, DPT, [address], [phone], [facility] 04/19/2016 14:30:29 Imaging Results None recorded. [...] SNOMED-CT Code Diagnosis ICD10 Code Diagnosis Note [id number] Viridiana Duckworth, PT, DPT, CSCS Physical Therapy, [facility] [address] [place] [address] 04/19/2016 14:22:17 04/20/2016 14:24:14 Neck pain [id number] M54.2 Pt is a 56 y.o. 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
--- OUTSIDE RECORDS SUMMARY | 2024-09-11 08:41 | XMS_ITS ---
Author Organization Maxx Caceres MD Address [address] [place] [id number] Care Team Providers Care Bed Machine Operator Name Role Phone Maxx Caceres Primary Care Provider Results Component Value Reference Range Notes Complete Blood Count Auto Di ff Reviewed date:06/12/2024 11:14:49 AM Interpretation: Performing Lab:[facility], [address] [place] [id number] Notes/Report: White Blood Count 5.6 4.8-10.8 X10*3/uL Red Blood Count 4.37 4.60-5.80 X10*6/uL Hemoglobin 13.4 14.0-18.0 g/dl Hematocrit 40.0 42.0-52.0 % Mean Corpuscular Volume 91.5 80.0-98.0 fL Mean Corpuscular Hemoglobin 30.7 27.0-33.0 pg Mean Corpuscular HGB Conc 33.5 31.0-36.0 g/dl Red Cell Distribution Width 12.8 11.0-16.0 % Platelet Count 219 160-400 X10*3/uL Mean Platelet Volume 9.3 9.4-12.4 fL Neutrophils Percent Auto 48.0 45-73 % Imm Gran Pct Auto 0.2 0.0-0.4 % Lymphocytes Percent Auto 35.3 20-40 % Monocytes Percent Auto 11.2 2-11 % Eosinophils Percent Auto 4.4 0-4 % Basophils Percent Auto 0.9 0-2 % NRBC Pct Auto 0.0 0.0-0.2 /100WBC Neutrophils Absolute Auto 2.7 2.0-8.3 x10*3/u L Imm Gran Abs Auto 0.01 0.00-0.03 X10*3/uL Lymphocytes Absolute Auto 2.0 1.2-4.9 X10*3/u L Monocytes Absolute Auto 0.6 0.1-1.2 X10*3/uL Eosinophils Absolute Auto 0.3 0.0-0.4 X10*3/u L Basophils Absolute Auto 0.1 0.0-0.2 X10*3/uL NRBC Abs Auto 0.000 0.0-0.012 X10*3/uL Comprehensive Deal. Panel Fa st Reviewed date:06/12/2024 12:48:25 PM Interpretation: Performing Lab:[address] [id number] Notes/Report: Sodium 141 135-145 mmol/L Potassium 3.9 3.3-5.1 mmol/L Chloride 107 96-108 mmol/L Carbon Dioxide 27 22-29 mmol/L Anion Gap 11 12-20 Blood Urea Nitrogen 18 9-16 mg/dL Creatinine 0.82 0.5-1.4 mg/dL Estimated Glomerular Filt Rate > 60 Chronic Kidney Disease: Estimated GFR < 60 mL/min/1.73m2 Severe Kidney Disease: Estimated GFR < 15 mL/min/1.73m2 Glucose Fasting 86 60-99 mg/dL Calcium 8.7 8.4-10.2 mg/dL Bilirubin Total 0.6 0.0-1.0 mg/dL Aspartate Amino Transferase 24 5-37 U/L Alanine Aminotransferase 12 0-40 U/L Total Protein 6.7 6.5-8.0 g/dL Albumin Level 3.9 3.5-5.0 g/dL Alkaline Phosphatase 66 39-117 U/L Lipid Panel Reviewed date:06/12/2024 12:47:51 PM Interpretation: Performing Lab:[address] [phone] Notes/Report: Triglycerides 66 <150 mg/dL Desirable Triglyceride: less than 150 mg/dL Borderline High Triglyceride 150-199 mg/dL High Triglyceride: 200-499 mg/dL Very High Triglyceride: greater than or equal to 5OO mg/dL Cholesterol 221 <200 mg/dL Desirable Cholesterol: less than 200 mg/dL Borderline High Cholesterol: 200-239 mg/dL High Cholesterol: greater than 239 mg/dL LDL Cholesterol Calculated 153 <100 mg/dL Desirable LDL: less than 100 mg/dL Near Optimal/Above Optimal LDL: 110-129 mg/dL Borderline High LDL: 130-159 mg/dL High LDL: 160-189 mg/dL Very High LDL: greater than or equal to 190 mg/dL HDL Cholesterol 55 >40 mg/dL Desirable HDL: greater than 40 mg/dL Note: This HDL assay may give artificially low results in patients with liver disease. PSA,Total (Free>4and<10) Reviewed date:06/12/2024 12:48:01 PM Interpretation: Performing Lab:[address] [phone] Notes/Report: PSA,Total (Free>4and<10) 2.90 0.00-4.00 ng/mL A Free PSA was not performed: The percentage of Free PSA can be used to enhance the differentiation of prostate cancer from benign prostatic disease in subjects whose PSA levels are between 4.0 and 10.0 ng/mL. For subjects whose PSA levels are below 4.0 or above 10.0 ng/mL, the risk of prostate cancer is determined on the basis of the PSA alone. Therefore the % Free PSA is recommended only for those subjects whose PSA levels are between 4.0 and 10.0 ng/mL. PSA methodology: Pablo Alinity i Chemiluminescent Microparticle Immunoassay (CMIA) UA ClnCatch+Micro w/rflx Cul t Reviewed date:06/12/2024 12:47:42 PM Interpretation: Performing Lab:[facility], [address] [place] [phone] Notes/Report: Urine, Clean Catch Color Urine Yellow Appearance Urine Clear PH 5.5 5.0-9.0 Glucose Urine UA Negative Negative mg/dL Urine Blood Negative Negative Specific [place] - Urine 1.020 1.005-1.025 Urine Protein Negative Neg-Trace mg/dL Urine Ketones Negative Negative mg/dL Nitrite Urine Negative Negative Leukocyte Esterase Urine Trace Negative RBC Urine 0-2 0-2 /HPF WBC Urine 0-5 0-5 /HPF Squamous Epithelial Cell Urine 0-2 0-2 /HPF Bacteria Urine None Seen None Seen Hyaline Casts Urine 0-2 0-2 /LPF REASON FOR VISIT yearly fasting labs Encounters Encounter Location Date Provider Diagnosis Maxx Caceres MD [address] [place] [address] [place] [phone] 06/12/2024 Maxx Caceres Blood tests for rout ine general physical examination Z00.00 ; Prostatism N40.0 and Hypercholesterolemia E78.00 Assessments Encounter Date Diagnosis (ICD Code) Assessment Notes Treatment Notes Treatment Clinical Notes Section Notes 06/12/2024 Blood tests for rout ine general physical examination (ICD-10 - Z00.00) 06/12/2024 Prostatism (ICD-10 - N40.0) 06/12/2024 Hypercholesterolemia (ICD-10 - E78.00) Plan Of Treatment Next Appt Details Provider Name:Maxx blackwood, 12/10/2024 07:30:00 AM, [address] [place] [address], Suite [facility], [place], [place], [phone], Provider Name:Maxx blackwood, 12/17/2024 08:30:00 AM, [address] [place] [address], [address] [place] [address], [phone], Provider Name:Maxx blackwood, 06/14/2025 07:15:00 AM, [address] [place] [address], [address], [phone], Provider Name:Maxx blackwood, 06/21/2025 08:30:00 AM, [address] [place] [address], [address], [phone], Progress Notes * BENITA MENDEZDOB:[birth year] (64 yo M)Acc No.[id number]:06/12/2024 Progress Note Patient:?BENITA MENDEZ Provider:?Maxx Caceres MD :1960???Age:64 Y???Sex:Male Wale e:06/12/2024 Address:[address] [place], [place] [phone] Subjective: * Chief Complaints: * ???1. Yearly fasting labs. * Medical History:? Objective: * Vitals:? Assessment: * Assessment: 1.?Blood tests for routine g eneral physical examination - Z00.00 (Primary)???2.?Prostatism - N40.0???3.?Hypercholesterolemia - E78.00??? Plan: * Treatment: 2.?Prostatism?LAB: Complete Blood Count Auto Diff (Collection Date & Time - 06/12/2024 07:15 AM) ?LAB: Comprehensive [place]. Panel Fast (Collection Date & Time - 06/12/2024 07:15 AM) ?LAB: Lipid Panel (Collection Date & Time - 06/12/2024 07:15 AM) ?LAB: PSA,Total (Free>4and<10) (Collection Date & Time - 06/12/2024 07:15 AM) ?LAB: UA ClnCatch+Micro w/rflx Cult (Collection Date & Time - 06/12/2024 07:15 AM) 3.?Hypercholesterolemia?LAB: Complete Blood Count Auto Diff (Collection Date & Time - 06/12/2024 07:15 AM) ?LAB: Comprehensive [place]. Panel Fast (Collection Date & Time - 06/12/2024 07:15 AM) ?LAB: Lipid Panel (Collection Date & Time - 06/12/2024 07:15 AM) ?LAB: PSA,Total (Free>4and<10) (Collection Date & Time - 06/12/2024 07:15 AM) ?LAB: UA ClnCatch+Micro w/rflx Cult (Collection Date & Time - 06/12/2024 07:15 AM) * Procedure Codes:?07763 VENIP UNCT, ROUTINE* * * The named appointment provid er may or may not be the originator of this progress note, and it is not deemed complete until electronically signed by the appointment provider. Sign off status: Pending * Provider:?Maxx Caceres MD Date:?0 06/12/2024 Generated for Delphine ng/Faminervag/eTransmitting on:?09/11/2024 08:40 AM EDT
--- OUTSIDE RECORDS SUMMARY | 2024-09-11 08:41 | XMS_ITS ---
Author Organization [facility] Address [address] [facility] [place] [address] Care Team Providers Care Special Certificate Dictator Name Role Phone Maxx Caceres MD Primary Care Provider Rhiannon Conrad Jr, Raúl Ziegler REASON FOR VISIT Update Demographics - Personal Info Encounters Encounter Location Date Provider Diagnosis [facility] [address] [facility] [place] [address] 12/17/2023 Raúl Conrad Jr Plan Of Treatment No Information Progress Notes * ANDREA BENITADOB:[birth year] (63 yo M)Acc No.[id number]:12/17/2023 Patient:?BENITA MENDEZ :1960???Age:63 Y???Sex:Male Address:[address] [place] [address] [place], [address] * true * Date:? Generated for Printi ben/Lorenag/eTransmitting on:?09/11/2024 08:41 AM EDT
--- OUTSIDE RECORDS SUMMARY | 2024-09-11 08:41 | XMS_ITS | Patient Health Record ---
Author Organization Maxx Caceres MD Address [address] [place], [place] [id number] Care Team Providers Care Buffet Runner Name Role Phone Maxx Caceres Primary Care Provider Allergies No Known Allergies Results Component Value Reference Range Notes Lipid Panel Reviewed date:09/15/2023 05:36:40 PM Interpretation: Performing Lab:[facility], [address] [place] [phone] Notes/Report: Triglycerides 62 <150 mg/dL Desirable Triglyceride: less than 150 mg/dL Borderline High Triglyceride 150-199 mg/dL High Triglyceride: 200-499 mg/dL Very High Triglyceride: greater than or equal to 5OO mg/dL Cholesterol 154 <200 mg/dL Desirable Cholesterol: less than 200 mg/dL Borderline High Cholesterol: 200-239 mg/dL High Cholesterol: greater than 239 mg/dL LDL Cholesterol Calculated 100 <100 mg/dL Desirable LDL: less than 100 mg/dL Near Optimal/Above Optimal LDL: 110-129 mg/dL Borderline High LDL: 130-159 mg/dL High LDL: 160-189 mg/dL Very High LDL: greater than or equal to 190 mg/dL HDL Cholesterol 42 >40 mg/dL Desirable HDL: greater than 40 mg/dL Note: This HDL assay may give artificially low results in patients with liver disease. Adalid Hernandez Reviewed date:09/15/2023 05:37:17 PM Interpretation: Performing Lab:[facility], [address] [place] [phone] Notes/Report: Adalid Hernandez See Note Specimen held untested for 24 hours; Call to request Chemistry testing. Liver Panel Reviewed date:09/15/2023 05:37:28 PM Interpretation: Performing Lab:[facility], [address] [place] [phone] Notes/Report: Bilirubin Total 0.5 0.0-1.0 mg/dL Bilirubin Direct 0.2 0.0-0.5 mg/dL Aspartate Amino Transferase 15 5-37 U/L Alanine Aminotransferase 13 0-40 U/L Total Protein 7.1 6.5-8.0 g/dL Albumin Level 3.8 3.5-5.0 g/dL Alkaline Phosphatase 76 39-117 U/L Complete Blood Count Auto Di ff Reviewed date:09/22/2023 01:50:16 PM Interpretation: Performing Lab:[facility], [address] [place] [phone] Notes/Report: White Blood Count 11.0 4.8-10.8 X10*3/uL Red Blood Count 3.89 4.60-5.80 X10*6/uL Hemoglobin 11.6 14.0-18.0 g/dl Hematocrit 34.4 42.0-52.0 % Mean Corpuscular Volume 88.4 80.0-98.0 fL Mean Corpuscular Hemoglobin 29.8 27.0-33.0 pg Mean Corpuscular HGB Conc 33.7 31.0-36.0 g/dl Red Cell Distribution Width 11.9 11.0-16.0 % Platelet Count 356 160-400 X10*3/uL Mean Platelet Volume 8.8 9.4-12.4 fL Neutrophils Percent Auto 82.1 45-73 % Imm Gran Pct Auto 0.4 0.0-0.4 % Lymphocytes Percent Auto 7.7 20-40 % Monocytes Percent Auto 7.8 2-11 % Eosinophils Percent Auto 1.6 0-4 % Basophils Percent Auto 0.4 0-2 % NRBC Pct Auto 0.0 0.0-0.2 /100WBC Neutrophils Absolute Auto 9.0 2.0-8.3 x10*3/u L Imm Gran Abs Auto 0.04 0.00-0.03 X10*3/uL Lymphocytes Absolute Auto 0.8 1.2-4.9 X10*3/u L Monocytes Absolute Auto 0.9 0.1-1.2 X10*3/uL Eosinophils Absolute Auto 0.2 0.0-0.4 X10*3/u L Basophils Absolute Auto 0.0 0.0-0.2 X10*3/uL NRBC Abs Auto 0.000 0.0-0.012 X10*3/uL Comprehensive Met. Panel Reviewed date:09/22/2023 12:45:27 PM Interpretation: Performing Lab:[facility], [address] [place] [phone] Notes/Report: Sodium 136 135-145 mmol/L Potassium 3.6 3.3-5.1 mmol/L Chloride 103 96-108 mmol/L Carbon Dioxide 23 22-29 mmol/L Anion Gap 14 12-20 Blood Urea Nitrogen 12 9-16 mg/dL Creatinine 0.87 0.5-1.4 mg/dL Estimated Glomerular Filt Rate > 60 NOTE: For -English individuals, multiply the result by 1.210. Chronic Kidney Disease: Estimated GFR < 60 mL/min/1.73m2 Severe Kidney Disease: Estimated GFR < 15 mL/min/1.73m2 Glucose Random 161 60-115 mg/dL Calcium 9.1 8.4-10.2 mg/dL Bilirubin Total 0.7 0.0-1.0 mg/dL Aspartate Amino Transferase 29 5-37 U/L Alanine Aminotransferase 28 0-40 U/L Total Protein 7.1 6.5-8.0 g/dL Albumin Level 3.5 3.5-5.0 g/dL Alkaline Phosphatase 90 39-117 U/L Lyme IgG/IgM w/reflex to WB Reviewed date:09/23/2023 04:57:19 PM Interpretation: Performing Lab:[facility], [address] [place] [phone] Notes/Report: Lyme Abs Screen <0.90 Index Interpretation ----- < 0.90 Negative 0.90-1.09 Equivocal > 1.09 Positive As recommended by the Food and Drug Administration (FDA), all samples with positive or equivocal results in a Borrelia burgdorferi antibody screen will be tested using a blot method. Positive or equivocal screening test results should not be interpreted as truly positive until verified as such using a supplemental assay (e.g., B. burgdorferi blot). The screening test and/or blot for B. burgdorferi antibodies may be falsely negative in early stages of Lyme disease, including the period when erythema migrans is apparent. THIS TEST WAS PERFORMED AT: [facility] [address] [place] [phone] ANEESH HEWITT MD Lyme Blot TNP Complete Blood Count Auto Di ff Reviewed date:09/23/2023 12:45:16 PM Interpretation: Performing Lab:[facility], [address] [place] [phone] Notes/Report: White Blood Count 9.2 4.8-10.8 X10*3/uL Red Blood Count 3.96 4.60-5.80 X10*6/uL Hemoglobin 11.7 14.0-18.0 g/dl Hematocrit 35.7 42.0-52.0 % Mean Corpuscular Volume 90.2 80.0-98.0 fL Mean Corpuscular Hemoglobin 29.5 27.0-33.0 pg Mean Corpuscular HGB Conc 32.8 31.0-36.0 g/dl Red Cell Distribution Width 11.9 11.0-16.0 % Platelet Count 378 160-400 X10*3/uL Mean Platelet Volume 8.7 9.4-12.4 fL Neutrophils Percent Auto 68.5 45-73 % Imm Gran Pct Auto 0.3 0.0-0.4 % Lymphocytes Percent Auto 16.9 20-40 % Monocytes Percent Auto 9.7 2-11 % Eosinophils Percent Auto 3.8 0-4 % Basophils Percent Auto 0.8 0-2 % NRBC Pct Auto 0.0 0.0-0.2 /100WBC Neutrophils Absolute Auto 6.3 2.0-8.3 x10*3/u L Imm Gran Abs Auto 0.03 0.00-0.03 X10*3/uL Lymphocytes Absolute Auto 1.6 1.2-4.9 X10*3/u L Monocytes Absolute Auto 0.9 0.1-1.2 X10*3/uL Eosinophils Absolute Auto 0.4 0.0-0.4 X10*3/u L Basophils Absolute Auto 0.1 0.0-0.2 X10*3/uL NRBC Abs Auto 0.000 0.0-0.012 X10*3/uL Tick-borne Disease Molecular Reviewed date:09/26/2023 12:38:42 PM Interpretation: Performing Lab:[facility], [address] [place] [phone] Notes/Report: Babesia Microti DNA, RT-PCR NOT DETECTED NOT DETECTED This test was developed and its analytical performance characteristics have been determined by [employer]. It has not been cleared or approved by the FDA. This assay has been validated pursuant to the CLIA regulations and is used for clinical purposes. THIS TEST WAS PERFORMED AT: [facility] [address] [place] [phone] ANEESH HEWITT MD E.Chaffeensis DNA RT-PCR NOT DETECTED NOT DETECTED This test was developed and its analytical performance characteristics have been determined by [employer]. It has not been cleared or approved by the FDA. This assay has been validated pursuant to the CLIA regulations and is used for clinical purposes. THIS TEST WAS PERFORMED AT: [facility] [address] [place] [phone] ANEESH HEWITT MD A. Phagocytphilium DNA,RT-PCR NOT DETECTED NOT DETECTED This test was developed and its analytical performance characteristics have been determined by [employer]. It has not been cleared or approved by the FDA. This assay has been validated pursuant to the CLIA regulations and is used for clinical purposes. Lyme(Borrelia ssp)DNA RT-PCR NOT DETECTED NOT DETECTED This test was developed and its analytical performance characteristics have been determined by [employer]. It has not been cleared or approved by the FDA. This assay has been validated pursuant to the CLIA regulations and is used for clinical purposes. For additional information, please refer to https://education.[employer]faq /nxp996 (This link is being provided for informational/ educational purposes only.) THIS TEST WAS PERFORMED AT: [facility] [address] [place] [phone] ANEESH HEWITT MD Borrelia Miyamotoi,DNA RT-PCR NOT DETECTED NOT DETECTED This test detects but does not distinguish between B. miyamotoi and B. hermsii. This test was developed and its analytical performance characteristics have been determined by [employer]. It has not been cleared or approved by the FDA. This assay has been validated pursuant to the CLIA regulations and is used for clinical purposes. THIS TEST WAS PERFORMED AT: [facility] [address] [place] [phone] ANEESH HEWITT MD Tick Mol. Panel Cmmt SEE NOTE A negative result does not exclude Borrelia infection as the concentration of the organism in blood may be low or non-existent in patients with Lyme disease, and may depend on timing of specimen collection from onset of symptoms. Clinical correlation is recommended and additional studies such as serologic testing may be indicated. THIS TEST WAS PERFORMED AT: [facility] [address] [place] [phone] ANEESH HEWITT MD Erythrocyte Sedimentation Ra te Reviewed date:09/29/2023 02:58:29 PM Interpretation: Performing Lab:[facility], [address] [place] [phone] Notes/Report: Erythrocyte Sedimentation Rate 45 0-15 MM/HR Patients with polycythemia and many hemoglobin abnormalities may have depressed sed rates whereas patients with anemia may have elevated sed rates. Adalid Gold Reviewed date:09/29/2023 12:43:12 PM Interpretation: Performing Lab:[facility], [address] [place] [phone] Notes/Report: Adalid Hernandez See Note Specimen held untested for 24 hours; Call to request Chemistry testing. Hold Green Gel Reviewed date:09/29/2023 12:43:04 PM Interpretation: Performing Lab:[facility], [address] [place] [phone] Notes/Report: Adalid Green Gel See Note Specimen held untested for 24 hours; Call to request Chemistry testing. Complete Blood Count Auto Di ff Reviewed date:09/29/2023 12:44:50 PM Interpretation: Performing Lab:[facility], [address] [place] [phone] Notes/Report: White Blood Count 7.6 4.8-10.8 X10*3/uL Red Blood Count 3.81 4.60-5.80 X10*6/uL Hemoglobin 11.3 14.0-18.0 g/dl Hematocrit 34.0 42.0-52.0 % Mean Corpuscular Volume 89.2 80.0-98.0 fL Mean Corpuscular Hemoglobin 29.7 27.0-33.0 pg Mean Corpuscular HGB Conc 33.2 31.0-36.0 g/dl Red Cell Distribution Width 12.1 11.0-16.0 % Platelet Count 337 160-400 X10*3/uL Mean Platelet Volume 8.8 9.4-12.4 fL Neutrophils Percent Auto 66.1 45-73 % Imm Gran Pct Auto 0.5 0.0-0.4 % Lymphocytes Percent Auto 20.7 20-40 % Monocytes Percent Auto 8.2 2-11 % Eosinophils Percent Auto 3.7 0-4 % Basophils Percent Auto 0.8 0-2 % NRBC Pct Auto 0.0 0.0-0.2 /100WBC Neutrophils Absolute Auto 5.0 2.0-8.3 x10*3/u L Imm Gran Abs Auto 0.04 0.00-0.03 X10*3/uL Lymphocytes Absolute Auto 1.6 1.2-4.9 X10*3/u L Monocytes Absolute Auto 0.6 0.1-1.2 X10*3/uL Eosinophils Absolute Auto 0.3 0.0-0.4 X10*3/u L Basophils Absolute Auto 0.1 0.0-0.2 X10*3/uL NRBC Abs Auto 0.000 0.0-0.012 X10*3/uL Rheumatoid Factor Reviewed date:09/29/2023 12:44:29 PM Interpretation: Performing Lab:[address] [phone] Notes/Report: Rheumatoid Factor < 13.0 <15.0 IU/mL Tick-borne Disease Molecular Reviewed date:10/02/2023 06:06:14 PM Interpretation: Performing Lab:[address] [phone] Notes/Report: Babesia Microti DNA, RT-PCR NOT DETECTED NOT DETECTED This test was developed and its analytical performance characteristics have been determined by [employer]. It has not been cleared or approved by the FDA. This assay has been validated pursuant to the CLIA regulations and is used for clinical purposes. THIS TEST WAS PERFORMED AT: [facility] [address] [phone] ANEESH HEWITT MD E.Chaffeensis DNA RT-PCR NOT DETECTED NOT DETECTED This test was developed and its analytical performance characteristics have been determined by [employer]. It has not been cleared or approved by the FDA. This assay has been validated pursuant to the CLIA regulations and is used for clinical purposes. THIS TEST WAS PERFORMED AT: [facility] [address] [place] [phone] ANEESH HEWITT MD A. Phagocytphilium DNA,RT-PCR NOT DETECTED NOT DETECTED This test was developed and its analytical performance characteristics have been determined by [employer]. It has not been cleared or approved by the FDA. This assay has been validated pursuant to the CLIA regulations and is used for clinical purposes. Lyme(Borrelia ssp)DNA RT-PCR NOT DETECTED NOT DETECTED This test was developed and its analytical performance characteristics have been determined by [employer]. It has not been cleared or approved by the FDA. This assay has been validated pursuant to the CLIA regulations and is used for clinical purposes. For additional information, please refer to https://education.[employer]faq /wjj103 (This link is being provided for informational/ educational purposes only.) THIS TEST WAS PERFORMED AT: [facility] [address] [place] [phone] ANEESH HEWITT MD Borrelia Miyamotoi,DNA RT-PCR NOT DETECTED NOT DETECTED This test detects but does not distinguish between B. miyamotoi and B. hermsii. This test was developed and its analytical performance characteristics have been determined by [employer]. It has not been cleared or approved by the FDA. This assay has been validated pursuant to the CLIA regulations and is used for clinical purposes. THIS TEST WAS PERFORMED AT: [facility] [address] [place] [phone] ANEESH HEWITT MD Tick Mol. Panel Cmmt SEE NOTE A negative result does not exclude Borrelia infection as the concentration of the organism in blood may be low or non-existent in patients with Lyme disease, and may depend on timing of specimen collection from onset of symptoms. Clinical correlation is recommended and additional studies such as serologic testing may be indicated. THIS TEST WAS PERFORMED AT: [facility] [address] [place] [phone] ANEESH HEWITT MD Complete Blood Count Auto Di ff Reviewed date:10/10/2023 01:58:51 PM Interpretation: Performing Lab:[facility], [address] [place] [phone] Notes/Report: White Blood Count 6.7 4.8-10.8 X10*3/uL Red Blood Count 4.07 4.60-5.80 X10*6/uL Hemoglobin 11.8 14.0-18.0 g/dl Hematocrit 36.6 42.0-52.0 % Mean Corpuscular Volume 89.9 80.0-98.0 fL Mean Corpuscular Hemoglobin 29.0 27.0-33.0 pg Mean Corpuscular HGB Conc 32.2 31.0-36.0 g/dl Red Cell Distribution Width 12.5 11.0-16.0 % Platelet Count 362 160-400 X10*3/uL Mean Platelet Volume 8.8 9.4-12.4 fL Neutrophils Percent Auto 67.6 45-73 % Imm Gran Pct Auto 0.4 0.0-0.4 % Lymphocytes Percent Auto 18.0 20-40 % Monocytes Percent Auto 9.4 2-11 % Eosinophils Percent Auto 3.6 0-4 % Basophils Percent Auto 1.0 0-2 % NRBC Pct Auto 0.0 0.0-0.2 /100WBC Neutrophils Absolute Auto 4.6 2.0-8.3 x10*3/u L Imm Gran Abs Auto 0.03 0.00-0.03 X10*3/uL Lymphocytes Absolute Auto 1.2 1.2-4.9 X10*3/u L Monocytes Absolute Auto 0.6 0.1-1.2 X10*3/uL Eosinophils Absolute Auto 0.2 0.0-0.4 X10*3/u L Basophils Absolute Auto 0.1 0.0-0.2 X10*3/uL NRBC Abs Auto 0.000 0.0-0.012 X10*3/uL Erythrocyte Sedimentation Ra te Reviewed date:10/10/2023 05:10:55 PM Interpretation: Performing Lab:[facility], [address] [place] [phone] Notes/Report: Erythrocyte Sedimentation Rate 40 0-15 MM/HR Patients with polycythemia and many hemoglobin abnormalities may have depressed sed rates whereas patients with anemia may have elevated sed rates. Urinalysis and Microscopic Reviewed date:10/20/2023 09:48:51 AM Interpretation:ELEANOR 10/17 Performing Lab:[address] [phone] Notes/Report: Color Urine Dark Yellow Appearance Urine Clear PH 5.5 5.0-9.0 Glucose Urine UA Negative Negative mg/dL Urine Blood Moderate (2+) Negative Specific Pinola - Urine 1.025 1.005-1.025 Urine Protein Trace Neg-Trace mg/dL Urine Ketones Trace Negative mg/dL Nitrite Urine Negative Negative Leukocyte Esterase Urine Trace Negative RBC Urine 3-5 0-2 /HPF WBC Urine 0-5 0-5 /HPF Squamous Epithelial Cell Urine 0-2 0-2 /HPF Bacteria Urine None Seen None Seen Hyaline Casts Urine 0-2 0-2 /LPF Comprehensive Met. Panel Reviewed date:10/10/2023 05:12:38 PM Interpretation: Performing Lab:[address] [phone] Notes/Report: Sodium 142 135-145 mmol/L Potassium 4.2 3.3-5.1 mmol/L Chloride 105 96-108 mmol/L Carbon Dioxide 25 22-29 mmol/L Anion Gap 16 12-20 Blood Urea Nitrogen 17 9-16 mg/dL Creatinine 0.87 0.5-1.4 mg/dL Estimated Glomerular Filt Rate > 60 NOTE: For -English individuals, multiply the result by 1.210. Chronic Kidney Disease: Estimated GFR < 60 mL/min/1.73m2 Severe Kidney Disease: Estimated GFR < 15 mL/min/1.73m2 Glucose Random 78 60-115 mg/dL Calcium 9.0 8.4-10.2 mg/dL Bilirubin Total 0.5 0.0-1.0 mg/dL Aspartate Amino Transferase 12 5-37 U/L Alanine Aminotransferase 9 0-40 U/L Total Protein 7.1 6.5-8.0 g/dL Albumin Level 3.7 3.5-5.0 g/dL Alkaline Phosphatase 73 39-117 U/L C Reactive Protein Reviewed date:10/10/2023 05:11:14 PM Interpretation: Performing Lab:[facility] [address], [place] [phone] Notes/Report: C Reactive Protein 4.60 < or = 0.50 mg/dL Cyclic Citrullinated Peptide Reviewed date:10/20/2023 05:00:16 PM Interpretation: Performing Lab:[facility], [address] [place] [phone] Notes/Report: Cyclic Citrullinated Peptide <16 Reference Range Negative: <20 Weak Positive: 20-39 Moderate Positive: 40-59 Strong Positive: >59 THIS TEST WAS PERFORMED AT: [facility] [address] [phone] ANEESH HEWITT MD Angiotensin Converting Enzym e Reviewed date:10/19/2023 04:47:00 PM Interpretation: Performing Lab:[facility], [address] [place] [phone] Notes/Report: Angiotensin Converting Enzyme 22 9-67 U/L THIS TEST WAS PERFORMED AT: [facility]/[address] [phone] ANUJ GOMEZ MD,PHD Protein Creatinine Ratio, Ur Reviewed date:10/10/2023 05:12:49 PM Interpretation: Performing Lab:[facility], [address] [place] [phone] Notes/Report: Creatinine Urine 226.81 Total Protein Urine Random 27 <12 mg/dL Protein/Creatinine Ratio, Ur 0.12 <0.2 The spot urine protein:creatinine ratio may increase to 0.3 during normal . Protein Electrophoresis, Ser um Reviewed date:10/18/2023 12:42:15 PM Interpretation: Performing Lab:[facility], [address] [place] [phone] Notes/Report: Prot Elec - Total Protein 6.9 6.1-8.1 g/dL Prot Elec - Albumin 3.6 3.8-4.8 g/dL Prot Elec - Alpha1 0.5 0.2-0.3 g/dL Prot Elec - Alpha2 0.8 0.5-0.9 g/dL Prot Elec - Beta 1 0.4 0.4-0.6 g/dL Prot Elec - Beta 2 0.4 0.2-0.5 g/dL Prot Elec - Gamma 1.2 0.8-1.7 g/dL PES - Abn Protein Band 1 TNP PES-Abn Protein Band 2 TNP PES-Abn Protein Band 3 TNP Prot Elec - Interpretation SEE NOTE Pattern consistent with an acute phase reaction THIS TEST WAS PERFORMED AT: [facility] [address] [place] [phone] ANEESH HEWITT MD Immunofixation Pnl, Serum Reviewed date:10/18/2023 12:42:37 PM Interpretation: Performing Lab:[facility], [address] [place] [phone] Notes/Report: IgG 0921 839-1815 mg/dL IgA 301 70-320 mg/dL IgM 119 50-300 mg/dL THIS TEST WAS PERFORMED AT: [facility] [address] [place] [phone] ANEESH HEWITT MD Immunofixation Interpretation SEE NOTE No monoclonal proteins detected. SOLOMON Reflex Titer and Pattern Reviewed date:10/14/2023 04:12:56 PM Interpretation: Performing Lab:[facility], [address] [place] [phone] Notes/Report: Anti Nuclear Antibody Screen NEGATIVE NEGATIVE SOLOMON IFA is a first line screen for detecting the presence of up to approximately 150 autoantibodies in various autoimmune diseases. A negative SOLOMON IFA result suggests an SOLOMON-associated autoimmune disease is not present at this time, but is not definitive. If there is high clinical suspicion for Sjogren's syndrome, testing for anti-SS-A/Ro antibody should be considered. Anti-Elizabeth-1 antibody should be considered for clinically suspected inflammatory myopathies. AC-0: Negative International Consensus on SOLOMON Patterns (https://doi.org/10.1 515/okdi-1634-0971) For additional information, please refer to http://education.[employer]faq/ CLQ561 (This link is being provided for informational/ educational purposes only.) THIS TEST WAS PERFORMED AT: [facility] [address] [place] [phone] ANEESH HEWITT MD Anti Nuclear Antibody Titer TNP Anti Nuclear Antibody Pattern TNP SOLOMON Titer 2 TNP SOLOMON Pattern 2 TNP SOLOMON Titer 3 TNP SOLOMON Pattern 3 TNP Sjogren's Antibodies Reviewed date:10/17/2023 01:45:03 PM Interpretation: Performing Lab:[facility], [address] [place] [phone] Notes/Report: Antibody to SS-A Antigen <1.0 NEG <1.0 NEG AI Antibody to SS-B Antigen <1.0 NEG <1.0 NEG AI THIS TEST WAS PERFORMED AT: [facility] [address] [place] [phone] ANEESH HEWITT MD Anti Extractable Nuclear Ag Reviewed date:10/18/2023 12:42:46 PM Interpretation: Performing Lab:[facility], [address] [place] [phone] Notes/Report: Matute Protein <1.0 NEG <1.0 NEG AI SM/Ribonucleoprotein Ab <1.0 NEG <1.0 NEG AI THIS TEST WAS PERFORMED AT: [facility] [address] [place] [phone] ANEESH HEWITT MD Anti DNA DS Antibody Reviewed date:10/18/2023 12:42:54 PM Interpretation: Performing Lab:[facility], [address] [place] [phone] Notes/Report: Anti DNA DS Antibody <1 IU/mL Interpretation < or = 4 Negative 5-9 Indeterminate > or = 10 Positive THIS TEST WAS PERFORMED AT: [facility] [address] [place] [phone] ANEESH HEWITT MD DNA Double Stranded-Crithidi a Reviewed date:10/18/2023 12:43:03 PM Interpretation: Performing Lab:[facility], [address] [place] [phone] Notes/Report: DNAds, Crithidia Antibody Negative Negative THIS TEST WAS PERFORMED AT: [facility]/[address] [phone] ANUJ GOMEZ MD,PHD DNAds, Crithidia Addtnl Testin TNP DNAds, Crithidia Antibody TNP Complement C3 Reviewed date:10/13/2023 12:44:34 PM Interpretation: Performing Lab:[facility], [address] [place] [phone] Notes/Report: Complement C3 135 82-185 mg/dL THIS TEST WAS PERFORMED AT: [facility] [address] [place] [phone] ANEESH HEWITT MD Complement C4 Reviewed date:10/13/2023 12:43:20 PM Interpretation: Performing Lab:[facility], [address] [place] [phone] Notes/Report: Complement C4 32 15-53 mg/dL THIS TEST WAS PERFORMED AT: [facility] [address] [place] [address] ANEESH HEWITT MD HLA B27 Reviewed date:10/13/2023 07:16:23 PM Interpretation: Performing Lab:[facility], [address] [place] [phone] Notes/Report: HLA B27 Negative Negative THIS TEST WAS PERFORMED AT: [facility]/[address] [phone] ANUJ GOMEZ MD,PHD Hepatitis A,B,C Profile Reviewed date:10/11/2023 12:32:41 PM Interpretation: Performing Lab:[facility], [address] [place] [phone] Notes/Report: Hepatitis A Antibody IgM Nonreactive Nonreactive IgM antibodies to HAV not detected; does not exclude early acute or recovered HAV infection. Hepatitis B Surface Antibody NONREACTIVE Nonreactive Nonreactive: < 8.00 mIU/mL Hepatitis B Core Antibody Nonreactive Nonreactive Hepatitis C Antibody Nonreactive Nonreactive Antibodies to HCV not detected; does not exclude early acute HCV infection. Hepatitis B Surface Antigen Negative Negative T Spot TB Reviewed date:10/13/2023 12:44:23 PM Interpretation: Performing Lab:[facility], [address] [place] [phone] Notes/Report: TSpotTB Negative Negative A negative test result does not exclude the possibility of exposure to or infection with Mycobacterium tuberculosis (M. tuberculosis). Patients with recent exposure to TB infected individuals exhibiting a negative T-SPOT.TB result should be considered for retesting within 6 weeks or if other relevant clinical symptoms indicate. Results from T-SPOT.TB testing must be used in conjunction with each individual's epidemiological history, current medical status, and results of other diagnostic evaluations. The T-SPOT.TB test is qualitative and results are reported as positive, borderline, or negative, given that the test controls perform as expected. In line with the Centers for Disease Control and Prevention's 2010 recommendation to report quantitative measurements alongside the qualitative result, the laboratory provides spot counts for informational purposes only. The T-SPOT.TB test should not be interpreted as a quantitative test. TS Panel A 0 TS Panel B 0 TS Negative Control Passed TS Positive Control Passed For additional information, please refer to http://education.MavenHut/faq/ VPO434 (This link is being provided for informational/ educational purposes only.) THIS TEST WAS PERFORMED AT: [employer] [address] [place] [id number] ANUJ GOMEZ MD,PHD HLA B51 Behcet's Disease Reviewed date:10/20/2023 07:16:07 PM Interpretation: Performing Lab:[facility], [address] [place] [phone] Notes/Report: HLA B51 Method PCR SSOP HLA B51 Histocompatability See Below FREDDIE: [id number] Director: Aliza Desai MD. [facility] PFI: [id number] UNOS: [id number] This test was developed and its performance characteristics determined by this laboratory. It has not been cleared or approved by the U.S. Food and Drug Administration. The FDA has determined that such clearance or approval is not necessary. This test is used for clinical purposes. It should not be regarded as investigational or for research. This laboratory is certified under the Clinical Laboratory Improvement Amendments of 1988 (CLIA-88) as qualified to perform high complexity clinical laboratory testing. THIS TEST WAS PERFORMED AT: [facility] [facility] [address] [place] [address] ALIZA DESAI MD HLA B51 B-1 B*07 HLA B51 B-2 B*15 HLA B51 B-1 NMDP TNP HLA B51 B-2 NMDP TNP HLA B51 B-1 Equivalent B7 HLA B51 B-2 Equivalent B62 HLA B51 Comments See Comments 10/19/2023: This patient is Negative for B*51. Urinalysis and Microscopic Reviewed date:10/18/2023 01:04:25 PM Interpretation: Performing Lab:[facility], [address] [place] [phone] Notes/Report: Color Urine Dark Yellow Appearance Urine Clear PH 5.5 5.0-9.0 Glucose Urine UA Negative Negative mg/dL Urine Blood Moderate (2+) Negative Specific Pinola - Urine 1.025 1.005-1.025 Urine Protein Trace Neg-Trace mg/dL Urine Ketones Negative Negative mg/dL Nitrite Urine Negative Negative Leukocyte Esterase Urine Small (1+) Negative RBC Urine 0-2 0-2 /HPF WBC Urine 0-5 0-5 /HPF Squamous Epithelial Cell Urine 0-2 0-2 /HPF Bacteria Urine None Seen None Seen Hyaline Casts Urine 0-2 0-2 /LPF UA ClnCatch+Micro w/rflx Cul t Reviewed date:11/10/2023 11:10:52 AM Interpretation:ELEANOR 11/10/23 Performing Lab:[facility], [address] [place] [phone] Notes/Report: Urine, Clean Catch Color Urine Yellow Appearance Urine Clear PH 5.5 5.0-9.0 Glucose Urine UA Negative Negative mg/dL Urine Blood Moderate (2+) Negative Specific Pinola - Urine 1.020 1.005-1.025 Urine Protein Negative Neg-Trace mg/dL Urine Ketones Negative Negative mg/dL Nitrite Urine Negative Negative Leukocyte Esterase Urine Trace Negative RBC Urine 6-10 0-2 /HPF WBC Urine 0-5 0-5 /HPF Squamous Epithelial Cell Urine 0-2 0-2 /HPF Bacteria Urine None Seen None Seen Hyaline Casts Urine 0-2 0-2 /LPF Complete Blood Count Auto Di ff Reviewed date:12/10/2023 04:09:52 PM Interpretation: Performing Lab:[address] [phone] Notes/Report: White Blood Count 6.7 4.8-10.8 X10*3/uL Red Blood Count 4.11 4.60-5.80 X10*6/uL Hemoglobin 11.8 14.0-18.0 g/dl Hematocrit 36.4 42.0-52.0 % Mean Corpuscular Volume 88.6 80.0-98.0 fL Mean Corpuscular Hemoglobin 28.7 27.0-33.0 pg Mean Corpuscular HGB Conc 32.4 31.0-36.0 g/dl Red Cell Distribution Width 15.1 11.0-16.0 % Platelet Count 255 160-400 X10*3/uL Mean Platelet Volume 8.7 9.4-12.4 fL Neutrophils Percent Auto 62.4 45-73 % Imm Gran Pct Auto 0.3 0.0-0.4 % Lymphocytes Percent Auto 21.3 20-40 % Monocytes Percent Auto 10.9 2-11 % Eosinophils Percent Auto 4.5 0-4 % Basophils Percent Auto 0.6 0-2 % NRBC Pct Auto 0.0 0.0-0.2 /100WBC Neutrophils Absolute Auto 4.2 2.0-8.3 x10*3/u L Imm Gran Abs Auto 0.02 0.00-0.03 X10*3/uL Lymphocytes Absolute Auto 1.4 1.2-4.9 X10*3/u L Monocytes Absolute Auto 0.7 0.1-1.2 X10*3/uL Eosinophils Absolute Auto 0.3 0.0-0.4 X10*3/u L Basophils Absolute Auto 0.0 0.0-0.2 X10*3/uL NRBC Abs Auto 0.000 0.0-0.012 X10*3/uL Erythrocyte Sedimentation Ra te Reviewed date:12/10/2023 04:12:56 PM Interpretation: Performing Lab:[address] [phone] Notes/Report: Erythrocyte Sedimentation Rate 10 0-15 MM/HR Patients with polycythemia and many hemoglobin abnormalities may have depressed sed rates whereas patients with anemia may have elevated sed rates. Comprehensive Met. Panel Reviewed date:12/10/2023 04:11:30 PM Interpretation: Performing Lab:[address] [phone] Notes/Report: Sodium 139 135-145 mmol/L Potassium 4.0 3.3-5.1 mmol/L Chloride 106 96-108 mmol/L Carbon Dioxide 26 22-29 mmol/L Anion Gap 11 12-20 Blood Urea Nitrogen 17 9-16 mg/dL Creatinine 0.82 0.5-1.4 mg/dL Estimated Glomerular Filt Rate > 60 NOTE: For -English individuals, multiply the result by 1.210. Chronic Kidney Disease: Estimated GFR < 60 mL/min/1.73m2 Severe Kidney Disease: Estimated GFR < 15 mL/min/1.73m2 Glucose Random 90 60-115 mg/dL Calcium 9.1 8.4-10.2 mg/dL Bilirubin Total 0.6 0.0-1.0 mg/dL Aspartate Amino Transferase 11 5-37 U/L Alanine Aminotransferase 9 0-40 U/L Total Protein 6.6 6.5-8.0 g/dL Albumin Level 3.8 3.5-5.0 g/dL Alkaline Phosphatase 61 39-117 U/L C Reactive Protein Reviewed date:12/10/2023 04:09:11 PM Interpretation: Performing Lab:[facility], [address] [place] [phone] Notes/Report: C Reactive Protein 1.06 < or = 0.50 mg/dL UA ClnCatch+Micro w/rflx Cul t Reviewed date:2024 09:06:33 AM Interpretation:see back 2024 Performing Lab:[facility], [address] [place] [phone] Notes/Report: Urine, Clean Catch Color Urine Yellow Appearance Urine Clear PH 7.0 5.0-9.0 Glucose Urine UA Negative Negative mg/dL Urine Blood Trace Negative Specific Pinola - Urine 1.015 1.005-1.025 Urine Protein Negative Neg-Trace mg/dL Urine Ketones Negative Negative mg/dL Nitrite Urine Negative Negative Leukocyte Esterase Urine Trace Negative RBC Urine 6-10 0-2 /HPF WBC Urine 0-5 0-5 /HPF Squamous Epithelial Cell Urine 0-2 0-2 /HPF Bacteria Urine None Seen None Seen Hyaline Casts Urine 0-2 0-2 /LPF Pathology Reviewed date:01/20/2024 12:19:15 PM Interpretation: Performing Lab:[facility], [address] [place] [phone] Notes/Report: -- ---- Name: Samy Mendez Age/Sex: 64/M : 1960 Unit#: [id number] Attend Dr: Hilda Roman [facility] Re01/18/24 Status : DEP REF Location: [facility] Disch: -- ---- SPEC : [id number] RECD : 01/19/24 STATUS: ARPITA LIPSCOMB NUM: [id number] NESSA: 01/18/24 [facility] DR: Hilda Roman [facility] ENTERED: 01/19/24-12 22 SP TYPE: Cytology OTHR DR: Maxx Caceres MD ORDERED: Cyto-enhanced Diagnosis Urine: Negative for high-grade urothelial carcinoma. See comment. COMMENT: Cellular specimen consisting of single urothelial cells with degenerative changes, squamous cells, red blood cells, acute inflammatory cells and crystals. Clinical History Hematuria Material Received Urine Gross Description Received is 10 cc of cloudy yellow fluid from which a ThinPrep slide is prepared. Copies To: Maxx Caceres MD [facility] [address] [place] [address] Drive [address] [place] [address] [facility] [address] [place] [address] Dr. Sayda saunders [address] [place] [address] [email or web address] ---- Signed (signature on file) Benita Renteria MD 01/20/24 1210 -- ---- END OF REPORT US retroperitoneal comp Reviewed date:02/09/2024 12:28:22 PM Interpretation: Performing Lab: Notes/Report: [place] [address] Ultrasound Report Signed Patient: Benita Mendez MR#: [id number] : 1960 Acct:[id number] Age/Sex: 64 / M ADM Date: 02/02/24 Loc: HO.US Attending Dr: Hilda SINGH Ordering Physician: Hilda Roman Date of Service: 02/02/24 Procedure(s): US retroperitoneal comp Accession Number(s): [id number] cc: Maxx Caceres MD; Hilda Roman EXAMINATION: US RETROPERITONEAL COMPLETE (RENAL) CLINICAL INFORMATION: Unspecified symptoms and signs involving the genitourinary system. COMPARISON: None available. TECHNIQUE: Real-time imaging of the kidneys and bladder. FINDINGS: RIGHT KIDNEY: 10.3 x 5.7 x 4.6 cm (SAG x AP x TRV). The kidney is normal in size, contour, and echogenicity. Renal cortical thickness is normal. No calculi or focal parenchymal lesions. No hydronephrosis. LEFT KIDNEY: 10.8 x 5.4 x 5.8 cm (SAG x AP x TRV). The kidney is normal in size, contour, and echogenicity. Renal cortical thickness is normal. No renal calculi or hydronephrosis. A benign lower pole 3.5 cm Bosniak class I renal cyst is noted which requires no additional imaging or follow up. No solid renal masses are seen. BLADDER: Well distended and normal. Bilateral ureteral jets are demonstrated. Prevoid bladder volume is 291 mL. Postvoid bladder volume is 30.7 mL. PROSTATE: There is incintqc-mk-nelttu prostatomegaly at 105 mL ADDITIONAL FINDINGS: A 4.3 cm benign-appearing cyst in the right lobe of the liver is seen. US/US retroperitoneal comp IMPRESSION: 1. Dypgjoqb-sz-njqapn BPH, 105 g prostate and 30.7 mL post void residual. 2. Benign Bosniak class I left renal cyst needs no further imaging or follow up. Electronically signed by: Toni Copeland MD 02/08/2024 03:09 PM EDT RP Dictated By: Toni Copeland MD Signed By: <Electronically signed by Toni Copeland MD in [place]> 02/08/24 1509 DD/ 1035 TD/TT: 02/02/24 1048 Quality Checker: [place] [address] Ultrasound Report Signed Patient: Benita Mendez MR#: [id number] : 1960 Acct:[id number] Age/Sex: 64 / M ADM Date: 02/02/24 Loc: .US Attending Dr: Hilda SINGH Ordering Physician: Hilda Roman Date of Service: 02/02/24 Procedure(s): US retroperitoneal comp Accession Number(s): [id number] cc: Maxx Caceres MD; Hilda Roman EXAMINATION: US RETROPERITONEAL COMPLETE (RENAL) CLINICAL INFORMATION: Unspecified symptoms and signs involving the genitourinary system. COMPARISON: None available. TECHNIQUE: Real-time imaging of the kidneys and bladder. FINDINGS: RIGHT KIDNEY: 10.3 x 5.7 x 4.6 cm (SAG x AP x TRV). The kidney is normal in size, contour, and echogenicity. Renal cortical thickness is normal. No calculi o r focal parenchymal lesions. No hydronephrosis. LEFT KIDNEY: 10.8 x 5.4 x 5.8 cm (SAG x AP x TRV). The kidney is normal in size, contour, an d echogenicity. Renal cortical thickness is normal. No renal calculi or hydronephrosis. A benign lower pole 3.5 cm Bosniak class I renal cyst i s noted which requires no additional imaging or follow up. No solid renal masses are seen. BLADDER: Well distended and normal. Bilateral ureteral jets are demonstrated. Prevoi d bladder volume is 291 mL. Postvoid bladder volume is 30.7 mL. PROSTATE: There is hesrihbn-xo-bouaai prostatomegaly at 105 mL ADDITIONAL FINDINGS: A 4.3 cm benign-appearing cyst in the right lobe of the liver is seen. US/US retroperitoneal comp IMPRESSION: 1. Cwlkafif-sr-qbswe d BPH, 105 g prostate and 30.7 mL post void residual. 2. Benign Bosniak class I left renal cyst needs no further imaging or follow up. Electronically fredrick d by: Toni Copeland MD 02/08/2024 03:09 PM EDT RP Dictated By: Toni Copeland MD Signed By: <Electronically signed by Toni Copeland MD in [place]> 02/08/24 1509 DD/ 1035 TD/TT: 02/02/24 1048 Quality Checker: Pathology Reviewed date:03/15/2024 12:45:06 PM Interpretation: Performing Lab:[facility], [address] [place] [phone] Notes/Report: -- ---- Name: Samy Mendez Age/Sex: 64/M : 1960 Unit#: [id number] Attend Dr: Hilda Roman [facility] Re03/13/24 Status : [facility] REF Location: [facility] Disch: -- ---- SPEC : [id number] RECD : 03/14/24 STATUS: ARPITA LIPSCOMB NUM: [id number] NESSA: 03/13/24 [facility] DR: Hilda Roman [facility] ENTERED: 03/14/24 SP TYPE: Cytology OTHR DR: Maxx Caceres MD ORDERED: Cyto-enhanced Diagnosis Urine: Negative for high-grade urothelial carcinoma. Comment: Examination of a monolayer preparation slide shows benign urothelial cells, benign squamous cell s, scattered inflammatory cells, cellular debris, and scattered red blood cells. Clinical History Other microscopic hematuria Material Received Urine Gross Description Received is 22 cc of clear yellow fluid from which a ThinPrep slide is prepared. Copies To: Maxx Caceres MD [facility] [address] [place] [address] [address] [place], [place] [id number] Hilda Roman [facility] [address] [place] [address] Dr. Sayda saunders [address] [place] [address] [email or web address] ---- Signed (signature on file) Maria Guadalupe Strafford 03/15/24 0943 -- ---- END OF REPORT Complete Blood Count Auto Di ff Reviewed date:03/20/2024 12:36:47 PM Interpretation: Performing Lab:[facility], [address] [place] [phone] Notes/Report: White Blood Count 5.8 4.8-10.8 X10*3/uL Red Blood Count 4.53 4.60-5.80 X10*6/uL Hemoglobin 13.6 14.0-18.0 g/dl Hematocrit 40.3 42.0-52.0 % Mean Corpuscular Volume 89.0 80.0-98.0 fL Mean Corpuscular Hemoglobin 30.0 27.0-33.0 pg Mean Corpuscular HGB Conc 33.7 31.0-36.0 g/dl Red Cell Distribution Width 13.1 11.0-16.0 % Platelet Count 246 160-400 X10*3/uL Mean Platelet Volume 8.8 9.4-12.4 fL Neutrophils Percent Auto 57.8 45-73 % Imm Gran Pct Auto 0.2 0.0-0.4 % Lymphocytes Percent Auto 27.4 20-40 % Monocytes Percent Auto 10.3 2-11 % Eosinophils Percent Auto 3.3 0-4 % Basophils Percent Auto 1.0 0-2 % NRBC Pct Auto 0.0 0.0-0.2 /100WBC Neutrophils Absolute Auto 3.4 2.0-8.3 x10*3/u L Imm Gran Abs Auto 0.01 0.00-0.03 X10*3/uL Lymphocytes Absolute Auto 1.6 1.2-4.9 X10*3/u L Monocytes Absolute Auto 0.6 0.1-1.2 X10*3/uL Eosinophils Absolute Auto 0.2 0.0-0.4 X10*3/u L Basophils Absolute Auto 0.1 0.0-0.2 X10*3/uL NRBC Abs Auto 0.000 0.0-0.012 X10*3/uL Erythrocyte Sedimentation Ra te Reviewed date:03/20/2024 12:11:37 PM Interpretation: Performing Lab:[facility], [address] [place] [phone] Notes/Report: Erythrocyte Sedimentation Rate 5 0-15 MM/HR Patients with polycythemia and many hemoglobin abnormalities may have depressed sed rates whereas patients with anemia may have elevated sed rates. Comprehensive Met. Panel Reviewed date:03/20/2024 12:17:24 PM Interpretation: Performing Lab:[facility], [address] [place] [phone] Notes/Report: Sodium 142 135-145 mmol/L Potassium 3.8 3.3-5.1 mmol/L Chloride 105 96-108 mmol/L Carbon Dioxide 29 22-29 mmol/L Anion Gap 12 12-20 Blood Urea Nitrogen 17 9-16 mg/dL Creatinine 0.85 0.5-1.4 mg/dL Estimated Glomerular Filt Rate > 60 NOTE: For -English individuals, multiply the result by 1.210. Chronic Kidney Disease: Estimated GFR < 60 mL/min/1.73m2 Severe Kidney Disease: Estimated GFR < 15 mL/min/1.73m2 Glucose Random 89 60-115 mg/dL Calcium 8.7 8.4-10.2 mg/dL Bilirubin Total 0.7 0.0-1.0 mg/dL Aspartate Amino Transferase 18 5-37 U/L Alanine Aminotransferase 13 0-40 U/L Total Protein 6.5 6.5-8.0 g/dL Albumin Level 3.9 3.5-5.0 g/dL Alkaline Phosphatase 67 39-117 U/L C Reactive Protein Reviewed date:03/20/2024 12:11:30 PM Interpretation: Performing Lab:[facility], [address] [place] [phone] Notes/Report: C Reactive Protein 0.37 < or = 0.50 mg/dL Complete Blood Count Auto Di ff Reviewed date:06/12/2024 11:14:49 AM Interpretation: Performing Lab:[facility], [address] [place] [phone] Notes/Report: White Blood Count 5.6 4.8-10.8 X10*3/uL [...] NRBC Abs Auto 0.000 0.0-0.012 X10*3/uL Comprehensive Brooks. Panel Fa st Reviewed date:06/12/2024 12:48:25 PM Interpretation: Performing Lab:[facility], [address] [place] [phone] Notes/Report: Sodium 141 135-145 mmol/L Potassium 3.9 [...] Panel Reviewed date:06/12/2024 12:47:51 PM Interpretation: Performing Lab:[address] [phone] Notes/Report: Triglycerides 66 <150 mg/dL Desirable Triglyceride: [...] (Free>4and<10) Reviewed date:06/12/2024 12:48:01 PM Interpretation: Performing Lab:[address] [phone] Notes/Report: PSA,Total (Free>4and<10) 2.90 0.00-4.00 ng/mL A [...] t Reviewed date:06/12/2024 12:47:42 PM Interpretation: Performing Lab:[facility], [address] [place] [phone] Notes/Report: Urine, Clean Catch Color Urine Yellow Appearance Urine Clear PH 5.5 5.0-9.0 Glucose Urine UA Negative Negative mg/dL Urine Blood Negative Negative Specific Pinola - Urine 1.020 1.005-1.025 Urine Protein Negative Neg-Trace mg/dL Urine Ketones Negative Negative mg/dL Nitrite Urine Negative Negative Leukocyte Esterase Urine Trace Negative RBC Urine 0-2 0-2 /HPF WBC Urine 0-5 0-5 /HPF Squamous Epithelial Cell Urine 0-2 0-2 /HPF Bacteria Urine None Seen None Seen Hyaline Casts Urine 0-2 0-2 /LPF Reason For Referral Reason Hand Arthritis Diagnosis 1 Hand arthritis (M19. 049) Referral Organization Maxx Caceres MD Referring Provider First Name Maxx Referring Provider Last Name Morris Referring Provider Speciality Internal M edicine Referred Provider Traci Dangelo Referred Provider Specialty Rheumatology General Notes Jeannine Miller 03:23:28 PM EDT > info faxed , Jeannine Miller 09/30/2023 10:52:44 AM EDT > patient is aware of the appt Angela Annette 10/06/2023 08:13:01 AM EDT > per provider would like patient seen sooner that November. Called office an was told by patient will be put on a waiting list.Angela Annette 10/06/2023 08:49:34 AM EDT > patient is aware of new date of appt Referral Priority Routine Referral Appointment Date 10/10/2023 Reason hematuria Diagnosis 1 Hematuria, unspecifi ed type (R31.9) Referral Organization Maxx Caceres MD Referring Provider First Name Maxx Referring Provider Last Name Morris Referring Provider Speciality Internal M edicine Referred Provider Ad Hightower Referred Provider Specialty Urology General Notes Jeannine Miller 02:45:19 PM EDT > info faxed, Jeannine Miller 12/05/2023 03:22:09 PM EDT > referral mailed to patient Referral Priority Routine Referral Appointment Date 01/18/2024 Medications Medication SIG (Take, Route, Frequency, Duration) [...] a day for 90 days 10/20/2021 Not-Taking Immunizations Vaccine Route Administration Date Status Comme nts SARS-COV-2 Moderna Unknown 09/14/2020 Administered SARS-COV-2 Moderna Unknown 10/12/2020 Administered SARS-COV-2 Moderna Unknown 04/28/2021 Administered Fluarix Quadrivalent Unknown 06/26/2021 Refused Social History Tobacco Use: Social History Observation [...] ast year? No Points 0 Interpretation Negative Problems Problem Type SNOMED Code ICD Code Onset Dates Problem Status W/U Status Risk Notes Problem Prostatism (45157990) Prostatism (N40.0) Active confirmed Problem Tubular adenoma (286589178) Tubular adenoma (D36.9) Active confirmed Problem Right bundle branch block (60712778) RBBB (I45.10) Active confirmed Problem Hypercholesterolemia (01327955) Hypercholesterolemia (E78.00) Active confirmed Problem 657542721 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 confirmed Problem History of total hip arthroplasty (situation) (667118705745) History of hip replacement, unspecified laterality (Z96.649) Active confirmed Vital Signs Blood pressure diastolic 60 mm Hg 06/19/2024 joshua ght is up 7 pounds since 01-02-24 Height 74 in 06/19/2024 weight is up 7 pounds since 01-02-24 Blood pressure systolic 122 mm Hg 06/19/2024 joshuag ht is up 7 pounds since 01-02-24 Weight 215 lbs 06/19/2024 weight is up 7 pounds since 01-02-24 BMI 27.6 kg/m2 06/19/2024 weight is up 7 pounds since 01-02-24 Procedures Procedure Date Ordered Date Performed Result Body Sit e Colonoscopy, Screening 12/16/2023 12/16/2023 Repeat 3y Encounters Encounter Location Date Provider Diagnosis Maxx Caceres MD [address] [place] [address] [id number] 09/15/2023 Maxx Caceres Hypercholesterolemia E78.00 Maxx Caceres MD [address] [place] [address] [id number] 11/07/2023 Maxx Caceres Hematuria, unspecifi ed type R31.9 Maxx Caceres MD [address] [place] [id number] 12/13/2023 Maxx Caceres Hematuria R31.9 Maxx Caceres MD [address] [place] [address] [id number] 06/12/2024 Maxx Caceres Blood tests for rout ine general physical examination Z00.00 ; Prostatism N40.0 and Hypercholesterolemia E78.00 Maxx Caceres MD [address] [place] [address] [id number] 09/23/2023 Maxx Caceres Lyme disease A69.20 and Hypercholesterolemia E78.00 Maxx Caceres MD [address] [place] [address] [id number] 09/29/2023 Maxx Caceres Lyme disease A69.20 and Hand arthritis M19.049 Maxx Caceres MD [address] [place] [address] [id number] 10/06/2023 Maxx Caceres Lyme disease A69.20 and Nocturnal polyuria R35.81 Maxx Caceres MD [address] [place] [address] [id number] 10/18/2023 Maxx Bombardier Microscopic hematuri a R31.29 ; Lyme disease A69.20 and Hand arthritis M19.049 Maxx Caceres MD [address] [place] [address] [id number] 11/10/2023 Maxx Gonzalezmaryclifford Hematuria, unspecifi ed type R31.9 ; Lyme disease A69.20 and Hand arthritis M19.049 Maxx Caceres MD [address] [place] [address] [id number] 2024 Maxxradha Gonzalezmaryclifford Microscopic hematuri a R31.29 and Lyme disease A69.20 Maxx Caceres MD [address] [place] [address] [id number] 06/19/2024 Maxx Caceres History of hip replacement, unspecified laterality Z96.649 ; Annual physical exam Z00.00 ; Hypercholesterolemia E78.00 ; Hand arthritis M19.049 ; Prostatism N40.0 ; Colon cancer screening Z12.11 and Depression screening Z13.31 Assessments Encounter Date Diagnosis (ICD Code) Assessment Notes Treatment Notes Treatment Clinical Notes Section Notes 09/15/2023 Hypercholesterolemia (ICD-10 - E78.00) 11/07/2023 Hematuria, unspecifi ed type (ICD-10 - R31.9) 06/12/[address] ine general physical examination (ICD-10 - Z00.00) 06/12/2024 Prostatism (ICD-10 - N40.0) 09/23/2023 Lyme disease (ICD-10 - A69.20) 09/23/2023 Hypercholesterolemia (ICD-10 - E78.00) doing well on meds. will hold on the statins 09/29/2023 Lyme disease (ICD-10 - A69.20) although tests are negative still seems most likely lyme, pending additional labs 09/29/2023 Hand arthritis (ICD- 10 - M19.049) will refer to rheumatology, patient verbalized understanding of medication and directions for use 10/06/2023 Lyme disease (ICD-10 - A69.20) had a negative rf and negative lyme titers 10/06/2023 Nocturnal polyuria (ICD-10 - R35.81) i was concerned that it could be some diabetes so a blood sugar was done which was normal 10/18/2023 Microscopic hematuri a (ICD-10 - R31.29) pending labs 10/18/2023 Lyme disease (ICD-10 - A69.20) have him stop the doxycycline now./ his repeat lyme titers were negative again. but with the documented tic bite and the migrating severe arthritis still feel that it is lyme. saw rheumatology and there was an extensive work up there all neg except the inflammatory markers/ also seems unlikely to be a rheumotoid disease with the method of it moving all over. it does seem to be improving with him being able to work 4 days last week 11/10/2023 Hematuria, unspecifi ed type (ICD-10 - R31.9) [place] [facility] [place]23 Lyme disease (ICD-10 - A69.20) to try to see rheum today/ patint is calling their office today to see if he can get in sooner for an appointment 2024 Microscopic hematuri a (ICD-10 - R31.29) is diminished and is going to see urology next week, will cntinue to monitor 2024 Lyme disease (ICD-10 - A69.20) is finally getting better on no meds, will continue to monitor 06/19/2024 History of hip replacement, unspecified laterality (ICD-10 - Z96.649) no problems, doing well 06/19/2024 Annual physical exam (ICD-10 - Z00.00) labs reviewed and discussed with patient 12/13/2023 Hematuria (ICD-10 - R31.9) 06/12/2024 Hypercholesterolemia (ICD-10 - E78.00) 10/18/2023 Hand arthritis (ICD- 10 - M19.049) seems like it is getting better 11/10/2023 Hand arthritis (ICD- 10 - M19.049) will follow up with rheum 06/19/2024 Hypercholesterolemia (ICD-10 - E78.00) is a [...] - Z13.31) negative screen Plan Of Treatment Next Appt Details Provider Name:Maxx Orr ier, 12/10/2024 07:30:00 AM, [address] [place] [address], Suite [facility], [place], [place], [phone], Provider Name:Maxx Orr ier, 12/17/2024 08:30:00 AM, [address] [place] [address], Suite [facility], [place], [place], [phone], Provider Name:Maxx Orr ier, 06/14/2025 07:15:00 AM, [address] [place] [address], Suite [facility], [place], [place], [phone], Provider Name:Maxx Orr destinyr, 06/21/2025 08:30:00 AM, [address] [place] [address], Suite [facility], [place], [place], [phone], Insurance Providers Payer Name Payer Address Payer Phone Subscriber Number Group Number Insured Name Patient Relationship to Insured Coverage Start Date Coverage End Date [facility] [address] [place] [place] [phone] [id number] BENITA MENDEZ Self - patient is the insured Medical (General) History Medical History History ICD Code 2017 due now for colonoscopy is going to dr moon 2023 poor prep repeat in 3 years
--- OUTSIDE RECORDS SUMMARY | 2024-09-11 08:42 | XMS_ITS | Patient Health Record ---
Author Organization [facility] Address [address] [place] [address] Care Team Providers Care Telecommunications Field Technician Name Role Phone Morris CARRENO, Maxx Primary Care Provider Raúl Everett Jr Allergies No Known Allergies Reason For Referral No Information Medications Medication SIG (Take, Route, Frequency, Duration) Notes Start Date End Date Status Atorvastatin Calcium 20 MG Oral for 30 Active Immunizations Vaccine Route Administration Date Status Comme nts Influenza Unknown 05/24/2018 Refused Influenza Unknown 08/15/2023 Refused Problems Problem Type SNOMED Code ICD Code Onset Dates Problem Status W/U Status Risk Notes Problem 128285731 Colon cancer screening (Z12.11) Active confirmed Problem 55559212 Encounter for other preprocedural examination (Z01.818) Active confirmed Encounters Encounter Location Date Provider Diagnosis [facility] [address] [place] [phone] 12/16/2023 Raúl Conrad Jr Colon cancer screening Z12.11 [facility] [address] [place] [phone] 10/20/2023 aRúl Conrad Jr [facility] [address] [place] [address] 12/17/2023 Raúl Conrad Jr [facility] [address] [place] [phone] 12/17/2023 Raúl Conrad Jr [facility] [address] [place] [phone] 12/17/2023 Raúl Conrad Jr [facility] [address] [place] [address] 12/17/2023 Raúl Conrad Jr Assessments Encounter Date Diagnosis (ICD Code) Assessment Notes Treatment Notes Treatment Clinical Notes Section Notes 12/16/2023 Colon cancer screening (ICD-10 - Z12.11) Plan Of Treatment Future Test Test Name Order Date COLONOSCOPY 12/22/2012 COLONOSCOPY 05/24/2018 COLONOSCOPY 08/15/2023 Insurance Providers Payer Name Payer Address Payer Phone Subscriber Number Group Number Insured Name Patient Relationship to Insured Coverage Start Date Coverage End Date [facility] [address] [place] [phone] [id number] BENITA MENDEZ Self - patient is the insured Medical (General) History Medical History History ICD Code Hyperlipidemia Colon polyps, colonoscopy 06/10, multiple polyps, three-year followup Surgical History Surgery Date(Month/Year) right hip replacement Right inguinal herniorrhaphy
--- OUTSIDE RECORDS SUMMARY | 2024-09-11 08:42 | XMS_ITS ---
Author Organization [facility] Address [address] [facility] [place] [address] Care Team Providers Care Mother'S Helper Name Role Phone Maxx Caceres MD Primary Care Provider Rhiannon Conrad Jr, Raúl Ziegler REASON FOR VISIT Update Demographics - Personal Info Encounters Encounter Location Date Provider Diagnosis [facility] [address] [facility] [place] [address] 12/17/2023 Raúl Conrad Jr Plan Of Treatment No Information Progress Notes * ANDREA BENITADOB:[birth year] (63 yo M)Acc No.[id number]:12/17/2023 Patient:?BENITA MENDEZ :1960???Age:63 Y???Sex:Male Address:[address] [place] [address] [place], [address] * true * Date:? Generated for Printi ben/Lorenag/eTransmitting on:?09/11/2024 08:41 AM EDT
--- OUTSIDE RECORDS SUMMARY | 2024-09-11 08:42 | XMS_ITS ---
Author Organization [facility] Address [address] [facility] [place] [address] Care Team Providers Care Manugrapher Name Role Phone Maxx Caceres MD Primary Care Provider Rhiannon Conrad Jr, Raúl Ziegler REASON FOR VISIT Update Demographics - Personal Info Encounters Encounter Location Date Provider Diagnosis [facility] [address] [facility] [place] [address] 12/17/2023 Raúl Conrad Jr Plan Of Treatment No Information Progress Notes * ANDREA BENITADOB:[birth year] (63 yo M)Acc No.[id number]:12/17/2023 Patient:?BENITA MENDEZ :1960???Age:63 Y???Sex:Male Address:[address] [place] [address] [place], [address] * true * Date:? Generated for Printi ben/Lorenag/eTransmitting on:?09/11/2024 08:42 AM EDT
== END 2024-09-11 09:14 | disposition home or self-care (01) ==
LOC: HO.HUSH 08:20
PROVIDERS: PCP Internal Medicine; Visit Provider Nurse Practitioner Family
DX: R31.29 Other microscopic hematuria (principal); N40.0 Benign prostatic hyperplasia without lower urinary tract symptoms; N28.1 Cyst of kidney, acquired; Z13.9 Encounter for screening, unspecified
CPT/HCPCS: 99213

== ENCOUNTER → 2024-09-11 08:19 | Outpatient (BNVA) | payer OTHER, SELFPAY | PROVIDERS: PCP Internal Medicine; Visit Provider Nurse Practitioner Family | DX: N40.0 Benign prostatic hyperplasia without lower urinary tract symptoms (principal); E78.00 Pure hypercholesterolemia, unspecified; R31.29 Other microscopic hematuria; N28.1 Cyst of kidney, acquired | CPT/HCPCS: 51798; 81003 ==

== ENCOUNTER 2024-12-10 07:30 | Outpatient (REF) | payer OTHER, SELFPAY ==
--- OUTSIDE RECORDS SUMMARY | 2023-10-21 03:30 | XMS_ITS ---
Author Organization [facility] Address [address] [place] [address] Care Team Providers Care Outside Machinist Supervisor Name Role Phone Maxx Caceres MD Primary Care Provider Rhiannon Conrad Jr, Raúl Ziegler REASON FOR VISIT screening Encounters Encounter Location Date Provider Diagnosis [facility] Outpatient [address] [place], [place] [address] [id number] 10/21/2023 Raúl Conrad Jr Plan Of Treatment No Information Progress Notes * BENITA MENDEZDOB:[birth year] (64 yo M)Acc No.[id number]:10/21/2023 COLON WITH MAC Patient: BENITA MIMS Provider: Ruthann Conrad MD :1960 A ge:63 Y S ex:Male Date:10/21/2023 Address:[address] [place] [address] [id number] Pcp:Maxx Caceres MD Subjective: * Chief Complaints: * 1 . Screening. * Medical History: Objective: * Vitals: Assessment: Plan: * Treatment: * * The named appointment provid er may or may not be the originator of this progress note, and it is not deemed complete until electronically signed by the appointment provider. Sign off status: Pending * Provider: Ruthann Conrad MD Date: 0 10/21/2023 Generated for Printi ng/Faxing/eTransmitting on: 0 12/10/2024 11:15 AM EDT
--- OUTSIDE RECORDS SUMMARY | 2024-06-19 04:30 | XMS_ITS ---
Author Organization Maxx Caceres MD Address [address] [place] [id number] Care Team Providers Care Log Sorting Supervisor Name Role Phone Maxx Caceres Primary Care Provider Allergies No Known Allergies REASON FOR VISIT annul visit Medications Medication SIG (Take, Route, Frequency, Duration) Notes Start Date End Date Status Ibuprofen 800 MG 1 tablet with food o r milk as needed Orally Three times a day for 30 days 09/29/2023 Not-Taking Doxycycline Hyclate 100 MG 1 capsule Orally Twice a day for 12 days 09/23/2023 Not-Taking Amoxicillin 500 MG 4 capsules by mouth one hour before dentist for 5 days Not-Taking Atorvastatin Calcium 20 MG 1 tablet Orally Once a day for 30 day(s) 06/16/2023 Not-Taking Terbinafine HCl 250 MG 1 tablet Orally O nce a day for 90 days 10/20/2021 Not-Taking Social History Tobacco Use: Social History Observation Description Date Details (start date - stop date) Never Smoker NA - NA Tobacco Use/Smoking Question Answer Notes Patient is a nonsmoker Additional Findings: Tobacco Non-User Cu rrent non-smoker, currently using no form of tobacco Alcohol Screen Question Answer Notes Did you have a drink containing alcohol in the p ast year? No Points 0 Interpretation Negative Vital Signs Blood pressure systolic 122 mm Hg 06/19/19 25 Blood pressure diastolic 60 mm Hg 025 Height 74 in 06/19/2024 Weight 215 lbs 06/19/2024 BMI 27.6 kg/m2 06/19/2024 weight is up 7 pounds since 01-02-24 Encounters Encounter Location Date Provider Diagnosis Maxx Caceres MD [address] [place] [address] [place] [phone] 06/19/2024 Maxx Caceres History of hip replacement, unspecified laterality Z96.649 ; Annual physical exam Z00.00 ; Hypercholesterolemia E78.00 ; Hand arthritis M19.049 ; Prostatism N40.0 ; Colon cancer screening Z12.11 and Depression screening Z13.31 Assessments Encounter Date Diagnosis (ICD Code) Assessment Notes Treatment Notes Treatment Clinical Notes Section Notes 06/19/2024 History of hip replacement, unspecified laterality (ICD-10 - Z96.649) no problems, doing well 06/19/2024 Annual physical exam (ICD-10 - Z00.00) labs reviewed and discussed with patient 06/19/2024 Hypercholesterolemia (ICD-10 - E78.00) is a little high but concerned about treating it due to arthritis when he started, will continue to monitor 06/19/2024 Hand arthritis (ICD- 10 - M19.049) has resolved 06/19/2024 Prostatism (ICD-10 - N40.0) stable will continue to monitor 06/19/2024 Colon cancer screeni ng (ICD-10 - Z12.11) guaiac negative 06/19/2024 Depression screening (ICD-10 - Z13.31) negative screen Plan Of Treatment Treatment Notes Assessment Notes History of hip replacement, unspecified laterality no problems, doing well Annual physical exam labs reviewed and d iscussed with patient Hypercholesterolemia is a little high bu t concerned about treating it due to arthritis when he started, will continue to monitor Hand arthritis has resolved Prostatism stable will continue to monitor Colon cancer screening guaiac negative Depression screening negative screen Next Appt Details Follow Up: 6 Months, Reason: Provider Name:Maxx blackwood, 12/17/2024 08:30:00 AM, [address] [place] [address], [place] [address], [place], [place], [phone], Provider Name:Maxx blackwood, 06/14/2025 07:15:00 AM, [address] [place] [address], [address], [phone], Provider Name:Maxx blackwood, 06/21/2025 08:30:00 AM, [address], [address], [place], [place], [phone], Progress Notes * BENITA MENDEZDOB:[birth year] (64 yo M)Acc No.[id number]:06/19/2024 Progress Notes Patient: BENITA MIMS Provider: Sanjuana Caceres MD :1960 A ge:64 Y S ex:Male Date:06/19/2024 Address:[address] [place], [place] [id number] Subjective: * Chief Complaints: * A nnul visit * HPI: D epression Screening: PHQ-9 L ittle interest or pleasure in doing things N ot at all, F eeling down, depressed, or hopeless N ot at all, T rouble falling or staying asleep, or sleeping too much N ot at all, F eeling tired or having little energy N ot at all, P oor appetite or overeating N ot at all, F eeling bad about yourself or that you are a failure, or have let yourself or your family down N ot at all, T rouble concentrating on things, such as reading the newspaper or watching television N ot at all, M oving or speaking so slowly that other people could have noticed; or the opposite, being so fidgety or restless that you have been moving around a lot more than usual N ot at all, T houghts that you would be better off or of hurting yourself in some way N ot at all, T otal Score 0 . I nterpretation and Intervention D epression Screening Findings N egative, F ollow-Up for Depression : review of PHQ-9 found negative result, no follow-up needed. here for follow up/ has been off prednisone since november/ has not gone on the medicines. has been seen by urology had us but no cysto. C ommunication Needs: Communication Needs D oes the patient have a hearing impairment N o, D oes the patient have a vision impairment? Y es, I f yes, what is the vision impairment? G lasses, Poor vision, D oes the patient have a cognition impairment? N o. S GRECIA Questions: SDOH Questions I n the past year have you been worried about losing housing? N o, I n the past year have you or any family members you live with been unable to get any of the following when it was really needed? Check all that apply: N one. * ROS: G eneral/Constitutional: Change in appetite d enies. C hills d enies. F ever d enies. O phthalmologic: Blurred vision d enies. D ischarge d enies. P ain d enies. E NT: Decreased hearing d enies. S ore throat d enies.?Swollen glands d enies. E ndocrine: Cold intolerance d enies. E xcessive thirst d enies. H eat intolerance d enies. W eight loss d enies. R espiratory: Cough d enies. S hortness of breath at rest d enies. S hortness of breath with exertion d enies. W heezing d enies. C ardiovascular: Chest pain at rest d enies. C hest pain with exertion?denies. I rregular heartbeat d enies. S hortness of breath d enies. ? G astrointestinal: Abdominal pain d enies. C hange in bowel habits d enies. D iarrhea d enies. N ausea d enies. R ectal bleeding d enies. V omiting d enies . G enitourinary: Patient complaining of g ets occasional tender left testical. B lood in urine d enies. D ifficulty urinating d enies. F requent urination?denies. M usculoskeletal: Painful joints d enies. W eakness d enies. ? S kin: Dry skin d enies. I tching d enies. D enies?Mole(s), changes in moles, new moles or any lesions of concern. D enies P hotosensitivity. R lance d enies. N eurologic: Dizziness d enies. F ainting d enies. H eadache?denies. * Medical History: * Surgical History: * Hospitalization/Major Diagno stic Procedure: * Family History: F ather: 50 yrs. M other: 82 yrs. 2 brother(s) , 1 sister(s) . .? Father- alcoholic Mother- ?[place], No pertinent family medical history brother alcoholic, Denies mental health/substance abuse family history. * Social History: T obacco Use: T obacco Use/Smoking P atient is a n onsmoker, A dditional Findings: Tobacco Non-User C urrent non-smoker, currently using no form of tobacco. D rugs/Alcohol: A lcohol Screen D id you have a drink containing alcohol in the past year? N o, P oints 0 , I nterpretation N egative. M iscellaneous: C affeine: yes, frequency:, 1-2 cups per day. Children: no. Community involvements: no. Exercise: no. Home smoke detector use: yes. Living with: alone. Marital status: single. Occupation: weeks/months/years, works full-time. Travel outside of the [place]: no. * Medications: N ot-Taking/PRNIbuprofen 800 MG Tablet 1 tablet with food or milk as needed Orally Three times a day Doxycycline Hyclate 100 MG Capsule 1 capsule Orally Twice a day Atorvastatin Calcium 20 MG Tablet 1 tablet Orally Once a day Terbinafine HCl 250 MG Tablet 1 tablet Orally Once a day Amoxicillin 500 MG Tablet 4 capsules by mouth one hour before dentist Medication List reviewed and reconciled with the patientNot-Taking/PRN Ibuprofen 800 MG Tablet 1 tablet with food or milk as needed Orally Three times a day Not-Taking/PRN Doxycycline Hyclate 100 MG Capsule 1 capsule Orally Twice a day Not-Taking/PRN Atorvastatin Calcium 20 MG Tablet 1 tablet Orally Once a day Not-Taking/PRN Terbinafine HCl 250 MG Tablet 1 tablet Orally Once a day Not-Taking/PRN Amoxicillin 500 MG Tablet 4 capsules by mouth one hour before dentist Medication List reviewed and reconciled with the patient * Allergies: N .K.D.A.yes[Allergies Verified] Objective: * Vitals: H t: 74, Wt: 215, BMI:27.6, BP:122/60, Wt-k.52. weight is up 7 pounds since 01-02-24. * P ast Orders: L ab:Comprehensive [place]. Panel Fast (Order Date - 06/12/2024) (Collection Date & Time - 06/12/2024 07:15 AM) Value Reference Range Sodium 141 135-145 - mmol/L Bilirubin Total 0.6 0.0-1.0 - mg/dL Aspartate Amino Transferase 24 5-37 - U/L Alanine Aminotransferase 12 0-40 - U/L Total Protein 6.7 6.5-8.0 - g/dL Albumin Level 3.9 3.5-5.0 - g/dL Alkaline Phosphatase 66 39-117 - U/L Potassium 3.9 3.3-5.1 - mmol/L Chloride 107 96-108 - mmol/L Carbon Dioxide 27 22-29 - mmol/L Anion Gap 11 L 12-20 - Blood Urea Nitrogen 18 H 9-16 - mg/dL Creatinine 0.82 0.5-1.4 - mg/dL Estimated Glomerular Filt Rate > 60 - Glucose Fasting 86 60-99 - mg/dL Calcium 8.7 8.4-10.2 - mg/dL L ab:Lipid Panel (Order Date - 06/12/2024) (Collection Date & Time - 06/12/2024 07:15 AM) Value Reference Range Triglycerides 66 <150 - mg/dL Cholesterol 221 H <200 - mg/dL LDL Cholesterol Calculated 153 H <100 - mg/dL HDL Cholesterol 55 >40 - mg/dL L ab:PSA,Total (Free>4and<10) (Order Date - 06/12/2024) (Collection Date & Time - 06/12/2024 07:15 AM) Value Reference Range PSA,Total (Free>4and<10) 2.90 0.00-4.00 - ng/ mL L ab:UA ClnCatch+Micro w/rflx Cult (Order Date 06/12/2024) (Collection Date & Time - 06/12/2024 07:15 AM) Value Reference Range Color Urine Yellow - Appearance Urine Clear - PH 5.5 5.0-9.0 - Glucose Urine UA Negative Negative - mg/dL Urine Blood Negative Negative - Specific [place] - Urine 1.020 1.005-1.025 - Urine Protein Negative Neg-Trace - mg/dL Urine Ketones Negative Negative - mg/dL Nitrite Urine Negative Negative - Leukocyte Esterase Urine Trace A Negative - RBC Urine 0-2 0-2 - /HPF WBC Urine 0-5 0-5 - /HPF Squamous Epithelial Cell Urine 0-2 0-2 - /HP F Bacteria Urine None Seen None Seen - Hyaline Casts Urine 0-2 0-2 - /LPF L ab:Complete Blood Count Auto Diff (Order Date - 06/12/2024) (Collection Date & Time - 06/12/2024 07:15 AM) Value Reference Range White Blood Count 5.6 4.8-10.8 - X10*3/uL Red Blood Count 4.37 L 4.60-5.80 - X10*6/uL Hemoglobin 13.4 L 14.0-18.0 - g/dl Hematocrit 40.0 L 42.0-52.0 - % Mean Corpuscular Volume 91.5 80.0-98.0 - fL Mean Corpuscular Hemoglobin 30.7 27.0-33.0 - pg Mean Corpuscular HGB Conc 33.5 31.0-36.0 - g/ dl Red Cell Distribution Width 12.8 11.0-16.0 - % Platelet Count 219 160-400 - X10*3/uL Mean Platelet Volume 9.3 L 9.4-12.4 - fL Neutrophils Percent Auto 48.0 45-73 - % Imm Gran Pct Auto 0.2 0.0-0.4 - % Lymphocytes Percent Auto 35.3 20-40 - % Monocytes Percent Auto 11.2 H 2-11 - % Eosinophils Percent Auto 4.4 H 0-4 - % Basophils Percent Auto 0.9 0-2 - % NRBC Pct Auto 0.0 0.0-0.2 - /100WBC Neutrophils Absolute Auto 2.7 2.0-8.3 - x10* 3/uL Imm Gran Abs Auto 0.01 0.00-0.03 - X10*3/uL Lymphocytes Absolute Auto 2.0 1.2-4.9 - X10* 3/uL Monocytes Absolute Auto 0.6 0.1-1.2 - X10*3/ uL Eosinophils Absolute Auto 0.3 0.0-0.4 - X10* 3/uL Basophils Absolute Auto 0.1 0.0-0.2 - X10*3/ uL NRBC Abs Auto 0.000 0.0-0.012 - X10*3/uL * Examination: G eneral Examination: GENERAL APPEARANCE: w ell developed, well nourished, in no acute distress. HEAD: n ormocephalic, atraumatic. EYES: p upils equal, round, reactive to light and accommodation, sclera non-icteric. EARS: n ormal. ORAL CAVITY: m ucosa moist. THROAT: c lear. NECK/THYROID: n brandyn supple, full range of motion, no cervical lymphadenopathy, no bruits. SKIN: w arm and dry, no suspicious lesions. HEART: r egular rate and rhythm, S1, S2 normal, no murmurs.? LUNGS: c lear to auscultation bilaterally. ABDOMEN: s oft, nontender, nondistended, bowel sounds present, normal, no organomegaly , no masses palpable. RECTAL EXAM: n ormal tone, no external hemorrhoids, no masses palpable, prostate normal, stool guaiac negative. MALE GENITOURINARY: n o penile lesions or discharge, no testicular mass, testes descended bilaterally. EXTREMITIES: n o clubbing, cyanosis, or edema. NEUROLOGIC: n onfocal, motor strength normal upper and lower extremities, sensory exam intact. Assessment: * Assessment: 1. A nnual physical exam - Z00.00 (Primary) 2 . H istory of hip replacement, unspecified laterality - Z96.649 3 . H ypercholesterolemia - E78.00 4 . H and arthritis - M19.049 5 . P rostatism - N40.0 6 . C olon cancer screening - Z12.11 7 . D epression screening - Z13.31 Plan: * Treatment: 2. H istory of hip replacement, unspecified laterality Notes: no problems, doing well 3. H ypercholesterolemia Notes: is a little high but concerned about treating it due to arthritis when he started, will continue to monitor 4. H and arthritis Notes: has resolved 5. P rostatism Notes: stable will continue to monitor 6. C olon cancer screening Notes: guaiac negative 7. D epression screening Notes: negative screen * Procedure Codes: * Follow Up: 6 Months * * Sign off status: Completed true * Provider: Sanjuana Caceres MD Date: 0 06/19/2024 Generated for Delphine contreras/Neil/Aideitting on: 0 12/10/2024 11:15 AM EDT History and Physical Notes * HPI (History of Present Illness) Category Sub-Category Detail Notes Category Not es Depression Screening PHQ-9 Little inte rest or pleasure in doing things: Not at all here for follow up/ has been off prednisone since november/ has not gone on the medicines. has been seen by urology had us but no cysto Feeling down, depressed, or hopeless: No t at all Trouble falling or staying asleep, or sl eeping too much: Not at all Feeling tired or having little energy: N ot at all Poor appetite or overeating: Not at all Feeling bad about yourself o r that you are a failure, or have let yourself or your family down: Not at all Trouble concentrating on thi ngs, such as reading the newspaper or watching television: Not at all Moving or speaking so slowly that other people could have noticed; or the opposite, being so fidgety or restless that you have been moving around a lot more than usual: Not at all Thoughts that you would be b poli off or of hurting yourself in some way: Not at all Total Score: 0 Interpretation and Intervention Depression Jong velasco Findings: Negative Follow-Up for Depression: : review of PH Q-9 found negative result, no follow-up needed SDOH Questions SDOH Questions In the past year have you been worried about losing housing?: No In the past year have you or any family members you live with been unable to get any of the following when it was really needed? Check all that apply:: None Communication Needs Communication Needs Does the patient have a hearing impairment: No Does the patient have a vision impairmen t?: Yes If yes, what is the vision impairment?: Glasses, Poor vision Does the patient have a cognition impair ment?: No Examination Category Sub-Category Detail Notes Category Not es General Examination GENERAL APPEARANCE: well dev eloped, well nourished, in no acute distress HEAD: normocephalic, atrau matic EYES: pupils equal, round, reactive to light and accommodation, sclera non-icteric EARS: normal THROAT: clear NECK/THYROID: neck supple, full ra nge of motion, no cervical lymphadenopathy, no bruits HEART: regular rate and rhy thm, S1, S2 normal, no murmurs LUNGS: clear to auscultatio n bilaterally ABDOMEN: soft, nontender, non distended, bowel sounds present, normal, no organomegaly , no masses palpable NEUROLOGIC: nonfocal, motor stre ngth normal upper and lower extremities, sensory exam intact SKIN: warm and dry, no kit picious lesions EXTREMITIES: no clubbing, cyanosi s, or edema MALE GENITOURINARY: no penile lesions or discharge, no testicular mass, testes descended bilaterally RECTAL EXAM: normal tone, no exte rnal hemorrhoids, no masses palpable, prostate normal, stool guaiac negative ORAL CAVITY: mucosa moist
[2024-12-10 11:04] LABS: Alanine Aminotransferase 14 U/L (0-40); Albumin Level 3.9 g/dL (3.5-5.0); Alkaline Phosphatase 65 U/L (39-117); Aspartate Amino Transferase 19 U/L (5-37); Cholesterol 205 mg/dL (<200); HDL Cholesterol 52 mg/dL (>40); Total Protein 6.2 g/dL (6.5-8.0); Triglycerides 69 mg/dL (<150)
--- OUTSIDE RECORDS SUMMARY | 2024-12-10 11:15 | XMS_ITS | Data Portability ---
Author Organization [facility], , [facility] Address [address] [place] [address] Assessment No assessment recorded. Plan of Treatment [...] By Organization Details Last Modified Time 04/19/2016 [id number] Pt's POC was reviewed with agreement by patient. Pt was intstructed in and provided with a HEP handout. [email or web address] Not available 04/19/2016 16:48:22 Reason for Referral None Reported. Procedures Surgical History Date Name Laterality Status Provider Name and Address Organization Details Recorded Time 6 [address]2419: PT Evaluation completed Viridiana Duckworth, PT, DPT, [address], [address], [facility] 04/19/2016 14:30:29 Imaging Results None recorded. Procedure [...] SNOMED-CT Code Diagnosis ICD10 Code Diagnosis Note [id number] Viridiana Duckworth, PT, DPT, CSCS Physical Therapy, [address] [address] 04/19/2016 14:22:17 04/20/2016 14:24:14 Neck pain 56958693 M54.2 Pt is a 56 y.o. 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
[2024-12-10 12:37] LABS: Reflex LDLD? No
== END 2024-12-10 07:31 | disposition home or self-care (01) ==
LOC: HO.LNP 07:30
PROVIDERS: Visit Provider Internal Medicine
DX: E78.00 Pure hypercholesterolemia, unspecified (principal)
CPT/HCPCS: 80061; 80076

== ENCOUNTER 2024-12-17 10:03 | Outpatient (REF) | payer OTHER, SELFPAY ==
--- OUTSIDE RECORDS SUMMARY | 2023-10-21 03:30 | XMS_ITS ---
Author Organization [facility] Address [address] [place] [address] Care Team Providers Care Easement Man Name Role Phone Maxx Caceres MD Primary Care Provider Rhiannon Conrad Jr, Raúl Ziegler [phone] REASON FOR VISIT screening Encounters Encounter Location Date Provider Diagnosis [facility] Outpatient [address] [place], [place] [address] [id number] 10/21/2023 Raúl Conrad Jr Plan Of Treatment No Information Progress Notes * BENITA MENDEZDOB:[birth year] (64 yo M)Acc No.[id number]:10/21/2023 COLON WITH MAC Patient: BENITA MIMS Provider: Ruthann Conrad MD :1960 A ge:63 Y S ex:Male Date:10/21/2023 Address:[address] [place] [address] [id number] Pcp:Maxx Caceres MD Subjective: * Chief Complaints: [...] 10/21/2023 Generated for Printi ng/Faxing/eTransmitting on: 0 12/17/2024 11:04 AM EDT
--- OUTSIDE RECORDS SUMMARY | 2024-12-17 11:04 | XMS_ITS | Data Portability ---
Author Organization [facility], , [facility] Address [address] [place] [address] Assessment No assessment recorded. Plan of Treatment [...] By Organization Details Last Modified Time 04/19/2016 [id number] Pt's POC was reviewed with agreement by patient. Pt was intstructed in and provided with a HEP handout. [email or web address] Not available 04/19/2016 16:48:22 Reason for Referral None Reported. Procedures Surgical History Date Name Laterality Status Provider Name and Address Organization Details Recorded Time 6 [address]7622: PT Evaluation completed Viridiana Duckworth, PT, DPT, [address], [address], [facility] 04/19/2016 14:30:29 Imaging Results None recorded. Procedure [...] SNOMED-CT Code Diagnosis ICD10 Code Diagnosis Note [id number] Viridiana Duckworth, PT, DPT, CSCS Physical Therapy, [facility] [address] [place] [address] 04/19/2016 14:22:17 04/20/2016 14:24:14 Neck pain 97605014 M54.2 Pt is a 56 y.o. 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
--- OUTSIDE RECORDS SUMMARY | 2024-12-17 11:05 | XMS_ITS | Patient Health Record ---
Author Organization Maxx Caceres MD Address [address] [place], [place] [phone] Care Team Providers Care Abrasive Mixer Name Role Phone Maxx Caceres Primary Care Provider Allergies No Known Allergies Results Component Value Reference Range Notes Pathology Reviewed date:01/20/2024 12:19:15 PM Interpretation: Performing Lab:[facility], [address] [place] [phone] Notes/Report: --- Name: Samy Mendez Age/Sex: 64/M : 1960 Unit#: [id number] Attend Dr: Hilda Roman [facility] Re01/18/24 Status : DEP [facility]ch[facility] --- SPEC : [id number] RECD : 01/19/24 STATUS: ARPITA LIPSCOMB NUM: [id number] NESSA: 01/18/[address] [facility] DR: Hilda Roman [facility] ENTERED: 01/19/24-12 22 SP TYPE: Cytology [...] To: Maxx Caceres MD [facility] [address] [place] [address] [address] [place] [address] Hilda Roman [facility] Services [address] [place], [place] [address]Dhaval Sayda e [address] [place], [place] [phone] [email or web address] --- Signed (signature on file) Benita Renteria MD 01/20/24 1210 --- END OF REPORT US retroperitoneal comp Reviewed date:02/09/2024 12:28:22 PM Interpretation: Performing Lab: Notes/Report: [address] [address] Ultrasound Report Signed Patient: Benita Mendez MR#: [id number] : 1960 Acct:[id number] Age/Sex: 64 / M ADM Date: 02/02/24 Loc: .US Attending Dr[facility] Ordering Physician: Hilda Roman Date of Service: 02/02/24 Procedure(s): US retroperitoneal comp Accession Number(s): [id number] cc: Maxx Caceres MD; Hilda Roman EXAMINATION: [...] volume is 30.7 mL. PROSTATE: There is smafvrhr-ig-tinhvx prostatomegaly at 105 mL ADDITIONAL FINDINGS: A 4.3 cm benign-appearing cyst in the right lobe of the liver is seen. US/US retroperitoneal comp IMPRESSION: 1. Iizpjpwa-qt-vusjou BPH, 105 g prostate and 30.7 mL post void residual. 2. Benign Bosniak class I left renal cyst needs no further imaging or follow up. Electronically signed by: Toni Copeland MD 02/08/2024 03:09 PM EDT Dictated By: Toni Copeland MD Signed By: <Electronically signed by Toni Copeland MD in OV> 02/08/24 1509 DD/ 1035 TD/TT: 02/02/24 1048 Ux Specialist: RAMIREZ [address] [address] Ultrasound Report Signed Patient: Benita Mendez MR#: [id number] : 1960 Acct:[id number] Age/Sex: 64 / M ADM Date: 02/02/24 Loc: HO.US Attending Dr: Hilda ROTHMANPKath Ordering Physician: Hilda Roman Date of Service: 02/02/24 Procedure(s): US retroperitoneal comp Accession Number(s): [id number] cc: Maxx Caceres MD; Hilda Roman EXAMINATION: [...] solid renal masses are seen. BLADDER: Well disten ded and normal. Bilateral ureteral jets are demonstrated. Prevoi d bladder volume is 291 mL. Postvoid bladder volume is 30.7 mL. PROSTATE: There is woydmyim-ea-qjulwo prostatomegaly at 105 mL ADDITIONAL FINDINGS: A 4.3 cm benign-appearing cyst in the right lobe of the liver is seen. US/US retroperitoneal comp IMPRESSION: 1. Uautznxd-bq-wuwnj d BPH, 105 g prostate and 30.7 mL post void residual. 2. Benign Bosniak cl ass I left renal cyst needs no further imaging or follow up. Electronically fredrick d by: Toni Copeland MD 02/08/2024 03:09 PM EDT Dictated By: Toni Copeland MD Signed By: <Electronically signed by Toni Copeland MD in OV> 02/08/24 1509 DD/ 1035 TD/TT: 02/02/24 1048 Ux Specialist: RAMIREZ Pathology Reviewed date:03/15/2024 12:45:06 PM Interpretation: Performing Lab:[facility], [address] [place] [address] Notes/Report: --- Name: Eriberto Mendezvandana Lambert Age/Sex: 64/M : 1960 Unit#: [id number] Attend Dr: Hilda Roman Re03/13/24 Status : DEP REF Location: [facility] Disch: --- SPEC : [id number] RECD : 03/14/24 STATUS: ARPITA LIPSCOMB NUM: [id number] NESSA: 03/13/24-[address]: Hilda Roman-VEE ENTERED: 03/14/24- 05 SP TYPE: Cytology OTHR DR: Maxx Caceres [...] To: Maxx Caceres MD [facility] [address] [place] [address] [place] [address] [place] [address] Hilda Roman [facility]rology Services [address] [place] [address] Dhaval Sayda e [address] [place], [place] [phone] [email or web address] --- Signed (signature on file) Maria Guadalupe [place] 03/15/24 0943 --- END OF REPORT Complete Blood Count Auto Di ff Reviewed date:03/20/2024 12:36:47 PM Interpretation: Performing Lab:[facility], [address] [place] [address], [place] [address] Notes/Report: White Blood Count 5.8 4.8-10.8 X10*3/uL [...] te Reviewed date:03/20/2024 12:11:37 PM Interpretation: Performing Lab:[address] [address] Notes/Report: Erythrocyte Sedimentation Rate 5 0-15 MM/HR Patients with polycythemia and many hemoglobin abnormalities may have depressed sed rates whereas patients with anemia may have elevated sed rates. Comprehensive Met. Panel Reviewed date:03/20/2024 12:17:24 PM Interpretation: Performing Lab:[address] [address] Notes/Report: Sodium 142 135-145 mmol/L Potassium 3.8 3.3-5.1 mmol/L Chloride 105 96-108 mmol/L Carbon Dioxide 29 22-29 mmol/L Anion Gap 12 12-20 Blood Urea Nitrogen 17 9-16 mg/dL Creatinine 0.85 0.5-1.4 mg/dL Estimated Glomerular Filt Rate > 60 NOTE: For -Kittitian individuals, multiply the result by 1.210. Chronic [...] Protein Reviewed date:03/20/2024 12:11:30 PM Interpretation: Performing Lab:[address] [address] Notes/Report: C Reactive Protein 0.37 < or = 0.50 mg/dL Complete Blood Count Auto Di ff Reviewed date:06/12/2024 11:14:49 AM Interpretation: Performing Lab:[facility], [address] [place] [address] Notes/Report: White Blood Count 5.6 4.8-10.8 X10*3/uL [...] NRBC Abs Auto 0.000 0.0-0.012 X10*3/uL [employer]. Panel Fa st Reviewed date:06/12/2024 12:48:25 PM Interpretation: Performing Lab:[facility], [address] [place] [address] Notes/Report: Sodium 141 135-145 mmol/L Potassium 3.9 [...] Panel Reviewed date:06/12/2024 12:47:51 PM Interpretation: Performing Lab:[facility], [address] [place] [address] Notes/Report: Triglycerides 66 <150 mg/dL Desirable Triglyceride: [...] (Free>4and<10) Reviewed date:06/12/2024 12:48:01 PM Interpretation: Performing Lab:[facility], [address] [place] [address] Notes/Report: PSA,Total (Free>4and<10) 2.90 0.00-4.00 ng/mL A [...] t Reviewed date:06/12/2024 12:47:42 PM Interpretation: Performing Lab:[address] [address] Notes/Report: Urine, Clean Catch Color Urine Yellow Appearance Urine Clear PH 5.5 5.0-9.0 Glucose Urine UA Negative Negative mg/dL Urine Blood Negative Negative Specific [place] - Urine 1.020 1.005-1.025 Urine Protein Negative Neg-Trace mg/dL Urine Ketones Negative Negative mg/dL Nitrite Urine Negative Negative Leukocyte Esterase Urine Trace Negative RBC Urine 0-2 0-2 /HPF WBC Urine 0-5 0-5 /HPF Squamous Epithelial Cell Urine 0-2 0-2 /HPF Bacteria Urine None Seen None Seen Hyaline Casts Urine 0-2 0-2 /LPF Hold Gold Reviewed date:12/10/2024 12:36:31 PM Interpretation: Performing Lab:[facility], [address] [place] [address] Notes/Report: Hold Gold See Note Specimen held untested for 24 hours; Call to request Chemistry testing. Liver Panel Reviewed date:12/10/2024 12:38:48 PM Interpretation: Performing Lab:[facility], [address] [place] [address] Notes/Report: Bilirubin Total 0.6 0.0-1.0 mg/dL Bilirubin Direct 0.2 0.0-0.5 mg/dL Aspartate Amino Transferase 19 5-37 U/L Alanine Aminotransferase 14 0-40 U/L Total Protein 6.2 6.5-8.0 g/dL Albumin Level 3.9 3.5-5.0 g/dL Alkaline Phosphatase 65 39-117 U/L Lipid Panel with Reflex Reviewed date:12/10/2024 12:38:59 PM Interpretation: Performing Lab:[facility], [address] [place] [address] Notes/Report: Triglycerides 69 <150 mg/dL Desirable Triglyceride: less than 150 mg/dL Borderline High Triglyceride 150-199 mg/dL High Triglyceride: 200-499 mg/dL Very High Triglyceride: greater than or equal to 5OO mg/dL Cholesterol 205 <200 mg/dL Desirable Cholesterol: less than 200 mg/dL Borderline High Cholesterol: 200-239 mg/dL High Cholesterol: greater than 239 mg/dL LDL Cholesterol Calculated 140 <100 mg/dL Desirable LDL: less than 100 mg/dL Near Optimal/Above Optimal LDL: 110-129 mg/dL Borderline High LDL: 130-159 mg/dL High LDL: 160-189 mg/dL Very High LDL: greater than or equal to 190 mg/dL HDL Cholesterol 52 >40 mg/dL Desirable HDL: greater than 40 mg/dL Note: This HDL assay may give artificially low results in patients with liver disease. Reason For Referral No Information Medications Medication SIG (Take, Route, Frequency, Duration) Notes Start Date End Date Status Ibuprofen 800 MG 1 tablet with food o r milk as needed Orally Three times a day for 30 days 09/29/2023 Not-Taking Atorvastatin Calcium 20 MG 1 tablet Orally Once a day for 30 day(s) 06/16/2023 Not-Taking Immunizations Vaccine Route Administration Date Status [...] Status W/U Status Risk Notes Problem Prostatism (48131080) Prostatism (N40.0) Active confirmed Problem Tubular adenoma (442079644) Tubular adenoma (D36.9) Active confirmed Problem Polyarthritis (439010133) Polyarthritis, unspecified (M13.0) Active confirmed Problem Right bundle branch block (13809607) RBBB (I45.10) Active confirmed Problem Hypercholesterolemia (71329429) Hypercholesterolemia (E78.00) Active confirmed Problem 712874479 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 confirmed Problem History of total hip arthroplasty (situation) (596250225431) History of hip replacement, unspecified laterality (Z96.649) Active confirmed Vital Signs Blood pressure diastolic 60 mm Hg 12/17/2024 joshua ght is up 2 pounds since 06-19-24 Height 74 in 12/17/2024 weight is up 2 pounds since 06-19-24 Blood pressure systolic 112 mm Hg 12/17/2024 weig ht is up 2 pounds since 06-19-24 Weight 217 lbs 12/17/2024 weight is up 2 pounds since 06-19-24 BMI 27.86 kg/m2 12/17/2024 weight is up 2 pounds since 06-19-24 Encounters Encounter Location Date Provider Diagnosis Maxx Caceres MD [address] [place] [phone] 06/12/2024 Maxx Caceres Blood tests for rout ine general physical examination Z00.00 ; Prostatism N40.0 and Hypercholesterolemia E78.00 Maxx Caceres MD [address] [place] [id number] 12/10/2024 Maxx Caceres Hypercholesterolemia E78.00 Maxx Caceres MD [address] [place] [id number] 12/17/2024 Maxx Caceres Polyarthritis, unspe cified M13.0 ; Hypercholesterolemia E78.00 and Hematuria R31.9 Maxx Caceres MD [address] [place] [id number] 2024 Maxx Caceres Microscopic hematuri a R31.29 and Lyme disease A69.20 Maxx Cace[address] [place] [id number] 06/19/2024 Maxx Caceres History of hip replacement, unspecified laterality Z96.649 ; Annual physical exam Z00.00 ; Hypercholesterolemia E78.00 ; Hand arthritis M19.049 ; Prostatism N40.0 ; Colon cancer screening Z12.11 and Depression screening Z13.31 Maxx Caceres MD [address] [place] [address] [address] [place] [id number] 10/03/2024 Maxx Caceres Assessments Encounter Date Diagnosis (ICD Code) Assessment Notes Treatment Notes Treatment Clinical Notes Section Notes 06/12/[address] ine general physical examination (ICD-10 - Z00.00) 06/12/2024 Prostatism (ICD-10 - N40.0) 12/10/2024 Hypercholesterolemia (ICD-10 - E78.00) 12/17/2024 Polyarthritis, unspecified (ICD-10 - M13.0) had studies that were negative for lupus 12/17/2024 Hypercholesterolemia (ICD-10 - E78.00) is a little up but patient is very reluctant to go on statins. has a good hdl so will observe 2024 Microscopic hematuri a (ICD-10 - R31.29) [...] Z00.00) labs reviewed and discussed with patient 06/12/2024 Hypercholesterolemia (ICD-10 - E78.00) 12/17/2024 Hematuria (ICD-10 - R31.9) 06/19/2024 Hypercholesterolemia (ICD-10 - E78.00) is a [...] - Z13.31) negative screen Plan Of Treatment Pending Test Test Name Order Date Urinalysis and Microscopic 12/17/2024 Next Appt Details Provider Name:Mxax Orr ier, 06/14/2025 07:15:00 AM, [address] [place] [address], [address], [phone], Provider Name:Maxx Orr ier, 06/21/2025 08:30:00 AM, [address] [place] [address], [place] [address], [place], [place], [phone], Insurance Providers Payer Name Payer Address Payer Phone Subscriber Number Group Number Insured Name Patient Relationship to Insured Coverage Start Date Coverage End Date [facility] [address] [facility] [phone] [id number] BENITA MENDEZ Self - patient is the insured Medical (General) History Medical History History ICD Code 2017 due now for colonoscopy is going to dr moon 2023 poor prep repeat in 3 years
[2024-12-17 11:13] LABS: Appearance Urine Clear; Glucose Urine UA Negative (Negative); PH 5.5 (5.0-9.0); Specific Gravity - Urine 1.025 (1.005-1.025); UMIC TRIGGER UA YES
== END 2024-12-17 10:04 | disposition home or self-care (01) ==
LOC: HO.LNP 10:03
PROVIDERS: Visit Provider Internal Medicine
DX: R31.9 Hematuria, unspecified (principal); M13.0 Polyarthritis, unspecified
CPT/HCPCS: 81001